=== PATIENT | female | born 1980 | race American Indian/Alaskan Native ===

== ENCOUNTER 2016-07-15 20:37 | Emergency (ER) | payer MEDICAID ==
[2016-07-15 21:52] VITALS: BP 104/65
[2016-07-15] MEDS ORDERED: Acetaminophen/HYDROcodone 325-10 MG Tab PO ONE (22:09)
[2016-07-15] MEDS ORDERED: Clindamycin HCl 150 MG Cap PO ONE (22:09)
--- NOTE | 2016-07-15 22:14 | EDM.PDOC ---
ED HPI ENT - General Chief Complaint: ENT Problem Stated Complaint: TOOTH ABCESS Time Seen by Provider: 07/15/16 22:10 Source of Information: Reports: Patient History Limitations: Reports: No limitations - History of Present Illness INITIAL COMMENTS - FREE TEXT/NARRATIVE: broken tooth be seeing DDS in AM. - Related Data Allergies/ADRs: Allergies Allergy/AdvReac Type Severity Reaction Status Date / Time amoxicillin [Amoxicillin] Allergy Difficulty Verified 07/15/16 21:49 Swallowing cephalexin [Cephalexin] Allergy Cannot Verified 07/15/16 21:49 Remember Cephalosporins Allergy Cannot Verified 07/15/16 21:49 Remember cyclobenzaprine Allergy Cannot Verified 07/15/16 21:49 [Cyclobenzaprine] Remember lactose Allergy Diarrhea Verified 07/15/16 21:49 latex Allergy Itching Verified 07/15/16 21:49 Penicillins Allergy Anaphylactic Verified 07/15/16 21:49 Shock fish Allergy Rash Uncoded 07/15/16 21:49 Home Meds: Home Meds Albuterol Sulfate [Albuterol Sulfate HFA] 8.5 gm IH ASDIRECTED PRN 04/11/13 [ History] Gabapentin [Neurontin] 900 mg PO TID 04/11/13 [History] Lisinopril 10 mg PO DAILY 04/11/13 [History] Montelukast [Singulair] 10 mg PO DAILY 04/11/13 [History] Pantoprazole [Protonix] 40 mg PO DAILY 04/11/13 [History] Dextroamphetamine/Amphetamine [Adderall] 30 mg PO DAILY 09/23/15 [History] Hydrochlorothiazide [Hydrochlorothiazide] 50 mg PO DAILY 09/23/15 [History] Lisdexamfetamine Dimesylate [Vyvanse] 60 mg PO DAILY 09/23/15 [History] SitaGLIPtin [Januvia] 100 mg PO DAILY 09/23/15 [History] metFORMIN HCl [Metformin HCl ER] 1,000 mg PO BID 09/23/15 [History] Baclofen 10 mg PO ASDIRECTED PRN 12/20/15 [History] Escitalopram [Lexapro] 10 mg PO DAILY 12/20/15 [History] Potassium 99 mg PO DAILY 12/20/15 [History] Albuterol [Proventil Neb Soln] 0.63 mg NEB TID PRN 03/05/16 [History] Insulin Glarg,Human.Rec.Analog [Lantus] 8 units SQ DAILY 04/19/16 [History] Past Medical History HEENT History: Reports: Other (see below) Other HEENT History: ears drain all the time Cardiovascular History: Reports: High cholesterol, Hypertension Respiratory History: Reports: Asthma, Bronchitis, recurrent Gastrointestinal History: Reports: GERD Genitourinary History: Reports: None, Renal calculus 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 CONSULTANT 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: Reports: None, Musculoskeletal History: Reports: Arthritis Neurological History: Reports: Concussion, Head trauma, Neuropathy, diabetic Other Neuro History: body shuts down from stress Psychiatric History: Reports: ADD, ADHD, Addiction, Aggressive/hostile behaviors , Anxiety, Depression, Emotional problems, Panic attack, Psych Hospitalization(s ), PTSD Endocrine/Metabolic History: Reports: Diabetes, type II Hematologic History: Reports: None Immunologic History: Reports: None Other Immunologic History: not sure if has been ecxposed to HIV Oncologic (Cancer) History: Reports: None Dermatologic History: Reports: Other (see below) Other Dermatologic History: has bumps in the groin area and a rash on body - Infectious Disease History Infectious Disease History: Reports: Chicken pox, Hepatitis C Other Infectious Disease History: has active Hep C - Past Surgical History Head Surgeries/Procedures: Reports: None GI Surgical History: Reports: Cholecystectomy, Other (see below) Other GI Surgeries/Procedures: liver surgery, bleeding ulcers Female Surgical History: Reports: Tubal ligation Social & Family History - Family History Family Medical History: Noncontributory Cardiac: Reports: High cholesterol, Hypertension, [place] Other Cardiac Family History: Grandmother on mom's side. Both sides have hypertension and high cholesterol Endocrine/Metabolic: Reports: Diabetes, type II Other Endocrine/Metabolic Family History: Both sides of family. - Tobacco Use Smoking Status *Q: Current Every Day Smoker Years of Tobacco use: 5 Packs/Tins Daily: 0.5 Used Tobacco, but Quit: No Month Tobacco Last Used: january 2014 Second Hand Smoke Exposure: No - Caffeine Use Caffeine Use: Reports: None - Alcohol Use Days Per Week of Alcohol Use: 0 Number of Drinks Per Day: 10 Total Drinks Per Week: 0 - Recreational Drug Use Recreational Drug Use: No Drug Use in Last 12 Months: No Recreational Drug Type: Reports: Barbituates, Marijuana/Hashish, Methamphetamine Recreational Drug Use Frequency: Daily Recreational Drug Last Use: Saturday - Living Situation & Occupation Living situation: Reports: other (in intermediate) ED ROS ENT - Review of Systems Review Of Systems: ROS reveals no pertinent complaints other than HPI. ED EXAM, ENT - Physical Exam Exam: See Below Exam Limited By: No limitations General Appearance: alert, WD/WN, mild distress, other (crying) Eye Exam: bilateral eye: PERRL (pupils ER @ 4mm) Ears: hearing grossly normal Mouth/Throat: Dental abcess, Dental pain, Dental tenderness Head: atraumatic Neck: non-tender, full range of motion Respiratory/Chest: no respiratory distress Cardiovascular: regular rate, rhythm GI/Abdominal: soft, non tender Neurological: alert, oriented, normal cognition, normal gait, no motor/sensory deficits Psychiatric: tearful Skin: Warm, Dry Lymphatic: no adenopathy Course - Vital Signs Last Recorded V/S: Last Vital Signs Temp 37.2 C 07/15/16 21:51 Pulse 75 07/15/16 21:51 Resp 20 07/15/16 21:51 BP 104/65 07/15/16 21:51 Pulse Ox 96 07/15/16 21:51 - Orders/Labs/Meds Orders: Active Orders 24 hr Category Date Time Status Acetaminophen/HYDROcodone [[place] 325-10 MG] Med 07/15/16 22:09 Once 1 tab PO ONETIME ONE Clindamycin HCl [Cleocin] Med 07/15/16 22:09 Once 150 mg PO ONETIME ONE Departure - Departure Time of Disposition: 22:12 Disposition: Home, Self-Care 01 Condition: good Clinical Impression: Dental abscess, Dental caries Instructions: Dental Abscess, [id number] Forms: ED Department Discharge Additional Instructions: 1) avoid sodas & candies 2) see dentist in morning rx given: clindamycin 150mg qid x 40 vicodin 5/325mg bid x 6 - My Orders Last 24 Hours: My Active Orders 07/15/16 22:09 Acetaminophen/HYDROcodone [[place] 325-10 MG] 1 tab PO ONETIME ONE Clindamycin HCl [Cleocin] 150 mg PO ONETIME ONE - Assessment/Plan Last 24 Hours: My Active Orders 07/15/16 22:09 Acetaminophen/HYDROcodone [[place] 325-10 MG] 1 tab PO ONETIME ONE Clindamycin HCl [Cleocin] 150 mg PO ONETIME ONE
== END 2016-07-15 22:28 | disposition home or self-care (01) ==
LOC: DL.ED 20:37
DX: K04.7 Periapical abscess without sinus (principal); K02.9 Dental caries, unspecified; E78.00 Pure hypercholesterolemia, unspecified; I10 Essential (primary) hypertension; J45.909 Unspecified asthma, uncomplicated; M19.90 Unspecified osteoarthritis, unspecified site; F41.9 Anxiety disorder, unspecified; E11.9 Type 2 diabetes mellitus without complications; F17.210 Nicotine dependence, cigarettes, uncomplicated; Z90.49 Acquired absence of other specified parts of digestive tract; Z98.51 Tubal ligation status; Z79.84 Long term (current) use of oral hypoglycemic drugs; Z79.4 Long term (current) use of insulin; Z79.899 Other long term (current) drug therapy; Z88.1 Allergy status to other antibiotic agents; Z88.0 Allergy status to penicillin; Z91.040 Latex allergy status; Z91.013 Allergy to seafood; Z91.018 Allergy to other foods
CPT/HCPCS: 99282; A9270

== ENCOUNTER 2016-07-20 23:07 | Emergency (ER) | payer MEDICAID ==
[2016-07-20 23:25] VITALS: BP 119/76
--- NOTE | 2016-07-21 00:12 | EDM.PDOC ---
ED HPI RENAL/ - General Chief Complaint: Flank Pain Stated Complaint: KIDNEYS HURT Time Seen by Provider: 07/21/16 00:07 Source of Information: Reports: Patient History Limitations: Reports: No limitations - History of Present Illness INITIAL COMMENTS - FREE TEXT/NARRATIVE: gives long h/o kidney problems since becoming DM. been f/u regularly @ clinic with blood tests last visit last week but no blood tests been done and kidney has been shaking and twitching on off. - Related Data Allergies/ADRs: Allergies Allergy/AdvReac Type Severity Reaction Status Date / Time amoxicillin [Amoxicillin] Allergy Difficulty Verified 07/20/16 23:25 Swallowing cephalexin [Cephalexin] Allergy Cannot Verified 07/20/16 23:25 Remember Cephalosporins Allergy Cannot Verified 07/20/16 23:25 Remember cyclobenzaprine Allergy Cannot Verified 07/20/16 23:25 [Cyclobenzaprine] Remember lactose Allergy Diarrhea Verified 07/20/16 23:25 latex Allergy Itching Verified 07/20/16 23:25 Penicillins Allergy Anaphylactic Verified 07/20/16 23:25 Shock fish Allergy Rash Uncoded 07/15/16 21:49 Home Meds: Home Meds Albuterol Sulfate [Albuterol Sulfate HFA] 8.5 gm IH ASDIRECTED PRN 04/11/13 [ History] Gabapentin [Neurontin] 900 mg PO TID 04/11/13 [History] Lisinopril 10 mg PO DAILY 04/11/13 [History] Montelukast [Singulair] 10 mg PO DAILY 04/11/13 [History] Pantoprazole [Protonix] 40 mg PO DAILY 04/11/13 [History] Dextroamphetamine/Amphetamine [Adderall] 30 mg PO DAILY 09/23/15 [History] Hydrochlorothiazide [Hydrochlorothiazide] 50 mg PO DAILY 09/23/15 [History] Lisdexamfetamine Dimesylate [Vyvanse] 60 mg PO DAILY 09/23/15 [History] SitaGLIPtin [Januvia] 100 mg PO DAILY 09/23/15 [History] metFORMIN HCl [Metformin HCl ER] 1,000 mg PO BID 09/23/15 [History] Baclofen 10 mg PO ASDIRECTED PRN 12/20/15 [History] Escitalopram [Lexapro] 10 mg PO DAILY 12/20/15 [History] Potassium 99 mg PO DAILY 12/20/15 [History] Albuterol [Proventil Neb Soln] 0.63 mg NEB TID PRN 03/05/16 [History] Insulin Glarg,Human.Rec.Analog [Lantus] 8 units SQ DAILY 04/19/16 [History] Clindamycin HCl [Clindamycin HCl] 150 mg PO DAILY 07/20/16 [History] Fluconazole [Diflucan] 150 mg PO DAILY 07/20/16 [History] atorvaSTATin [Lipitor] 20 mg PO BEDTIME 07/20/16 [History] Past Medical History HEENT History: Reports: Other (see below) Other HEENT History: ears drain all the time Cardiovascular History: Reports: High cholesterol, Hypertension Respiratory History: Reports: Asthma, Bronchitis, recurrent Gastrointestinal History: Reports: GERD Genitourinary History: Reports: Renal calculus 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: Musculoskeletal History: Reports: Arthritis Neurological History: Reports: Concussion, Head trauma, Neuropathy, diabetic Other Neuro History: body shuts down from stress Psychiatric History: Reports: ADD, ADHD, Addiction, Aggressive/hostile behaviors , Anxiety, Depression, Emotional problems, Panic attack, Psych Hospitalization(s ), PTSD Endocrine/Metabolic History: Reports: Diabetes, type II Hematologic History: Reports: None Immunologic History: Reports: None Other Immunologic History: not sure if has been ecxposed to HIV Oncologic (Cancer) History: Reports: None Dermatologic History: Reports: Other (see below) Other Dermatologic History: has bumps in the groin area and a rash on body - Infectious Disease History Infectious Disease History: Reports: Chicken pox, Hepatitis C Other Infectious Disease History: has active Hep C - Past Surgical History Head Surgeries/Procedures: Reports: None GI Surgical History: Reports: Cholecystectomy, Other (see below) Other GI Surgeries/Procedures: liver surgery, bleeding ulcers Female Surgical History: Reports: Tubal ligation Social & Family History - Family History Family Medical History: Noncontributory Cardiac: Reports: High cholesterol, Hypertension, [place] Other Cardiac Family History: Grandmother on mom's side. Both sides have hypertension and high cholesterol Endocrine/Metabolic: Reports: Diabetes, type II Other Endocrine/Metabolic Family History: Both sides of family. - Tobacco Use Smoking Status *Q: Current Every Day Smoker Years of Tobacco use: 25 Packs/Tins Daily: 0.1 Used Tobacco, but Quit: No Month Tobacco Last Used: january 2014 Second Hand Smoke Exposure: Yes - Caffeine Use Caffeine Use: Reports: None - Alcohol Use Days Per Week of Alcohol Use: 0 Number of Drinks Per Day: 10 Total Drinks Per Week: 0 - Recreational Drug Use Recreational Drug Use: Yes Drug Use in Last 12 Months: No Recreational Drug Type: Reports: Barbituates, Marijuana/Hashish, Methamphetamine Recreational Drug Use Frequency: Daily Recreational Drug Last Use: Saturday - Living Situation & Occupation Living situation: Reports: other (in residential) ED ROS GENERAL - Review of Systems Review Of Systems: ROS reveals no pertinent complaints other than HPI. ED EXAM, RENAL/ - Physical Exam Exam: See Below Exam Limited By: No limitations General Appearance: alert, WD/WN, no apparent distress Ears: hearing grossly normal Throat/Mouth: Normal voice, No airway compromise Head: atraumatic Neck: non-tender, full range of motion Respiratory/Chest: no respiratory distress Cardiovascular: regular rate, rhythm GI/Abdominal: soft, non tender Back Exam: CVA tenderness (L), paraspinal tenderness Neurological: alert, oriented, normal cognition, normal gait, no motor/sensory deficits Psychiatric: normal affect, normal mood Skin Exam: Warm, Dry Lymphatic: no adenopathy Course - Vital Signs Last Recorded V/S: Last Vital Signs Temp 36.6 C 07/20/16 23:21 Pulse 89 07/20/16 23:21 Resp 18 07/20/16 23:21 BP 119/76 07/20/16 23:21 Pulse Ox 100 07/20/16 23:21 - Orders/Labs/Meds Orders: Active Orders 24 hr Category Date Time Status CBC WITH AUTO DIFF [HEME] Stat Lab 07/21/16 00:15 Results MANUAL DIFFERENTIAL QA/NC [HEME] Stat Lab 07/21/16 00:15 Results Acetaminophen/HYDROcodone [[place] 325-10 MG] Med 07/21/16 00:50 Once 1 tab PO ONETIME ONE Labs: Laboratory Tests 07/20/16 07/21/16 07/21/16 Range/Units 23:37 00:00 00:15 WBC 15.1 H (5.0-10.0) 10^3/uL RBC 4.25 (4.2-5.4) 10^6/uL Hgb 11.5 L (12.0-16.0) g/dL Hct 35.0 L (37.0-47.0) % MCV 82.4 (80-100) fL MCH 27.1 (27.0-34.0) pg MCHC 32.9 L (33.0-35.0) g/dL Plt Count 351 (150-450) 10^3/uL Neut % (Auto) 71.7 (42.2-75.2) % Lymph % (Auto) 17.8 L (20.5-50.1) % [place] % (Auto) 9.0 H (2-8) % Eos % (Auto) 1.3 (1.0-3.0) % Baso % (Auto) 0.2 (0.0-1.0) % Add Manual Diff Yes Sodium (135-145) mmol/L Potassium (3.6-5.0) mmol/L Chloride (101-111) mmol/L Carbon Dioxide (21.0-31.0) mmol/L Anion Gap BUN (7-18) mg/dL Creatinine (0.6-1.3) mg/dL Est Cr Clr Drug Dosing mL/min Estimated GFR (MDRD) BUN/Creatinine Ratio Glucose (74-105) mg/dL Calcium (8.4-10.2) mg/dl Total Bilirubin (0.2-1.0) mg/dL AST (10-42) IU/L ALT (10-60) IU/L Alkaline Phosphatase (42-121) IU/L Total Protein (6.7-8.2) g/dl Albumin (3.2-5.5) g/dl Globulin Albumin/Globulin Ratio Urine Color Yellow (YELLOW) Urine Appearance Clear (CLEAR) Urine pH 7.0 (5.0-9.0) Ur Specific [place] 1.025 (1.005-1.030) Urine Protein Negative (NEGATIVE) Urine Glucose (UA) Negative (NEGATIVE) Urine Ketones Negative (NEGATIVE) Urine Occult Blood Negative (NEGATIVE) Urine Nitrite Negative (NEGATIVE) Urine Bilirubin Negative (NEGATIVE) Urine Urobilinogen 1.0 (0.2-1.0) mg/dL Ur Leukocyte Esterase Negative (NEGATIVE) Urine RBC Not seen /HPF Urine WBC 0-5 (0-5/HPF) /HPF Ur Epithelial Cells Moderate H /HPF Urine Bacteria Moderate H (0-FEW/HPF) /HPF Urine HCG, Qual Negative 07/21/16 Range/Units 00:15 WBC (5.0-10.0) 10^3/uL RBC (4.2-5.4) 10^6/uL Hgb (12.0-16.0) g/dL Hct (37.0-47.0) % MCV (80-100) fL MCH (27.0-34.0) pg MCHC (33.0-35.0) g/dL Plt Count (150-450) 10^3/uL Neut % (Auto) (42.2-75.2) % Lymph % (Auto) (20.5-50.1) % [place] % (Auto) (2-8) % Eos % (Auto) (1.0-3.0) % Baso % (Auto) (0.0-1.0) % Add Manual Diff Sodium 135 (135-145) mmol/L Potassium 4.0 (3.6-5.0) mmol/L Chloride 97 L (101-111) mmol/L Carbon Dioxide 30.0 (21.0-31.0) mmol/L Anion Gap 12.0 BUN 12 (7-18) mg/dL Creatinine 0.6 (0.6-1.3) mg/dL Est Cr Clr Drug Dosing 120.18 mL/min Estimated GFR (MDRD) > 60 BUN/Creatinine Ratio 20.00 Glucose 86 (74-105) mg/dL Calcium 8.6 (8.4-10.2) mg/dl Total Bilirubin 0.5 (0.2-1.0) mg/dL AST 24 (10-42) IU/L ALT 29 (10-60) IU/L Alkaline Phosphatase 91 (42-121) IU/L Total Protein 6.5 L (6.7-8.2) g/dl Albumin 3.5 (3.2-5.5) g/dl Globulin 3.0 Albumin/Globulin Ratio 1.17 Urine Color (YELLOW) Urine Appearance (CLEAR) Urine pH (5.0-9.0) Ur Specific [place] (1.005-1.030) Urine Protein (NEGATIVE) Urine Glucose (UA) (NEGATIVE) Urine Ketones (NEGATIVE) Urine Occult Blood (NEGATIVE) Urine Nitrite (NEGATIVE) Urine Bilirubin (NEGATIVE) Urine Urobilinogen (0.2-1.0) mg/dL Ur Leukocyte Esterase (NEGATIVE) Urine RBC /HPF Urine WBC (0-5/HPF) /HPF Ur Epithelial Cells /HPF Urine Bacteria (0-FEW/HPF) /HPF Urine HCG, Qual - Re-Assessments/Exams Free Text/Narrative Re-Assessment/Exam: 07/21/16 00:50 results discussed with pt. Departure - Departure Time of Disposition: 00:51 Disposition: Home, Self-Care 01 Condition: good Clinical Impression: Lumbar pain determined by palpation Instructions: Back Pain, Adult, [id number] Forms: ED Department Discharge Additional Instructions: 1) rest and avoid lifting, bending, straining next 48 hours 2) try heat to sore areas 3) try tylenol or motrin for relief 4) drink lots of liquids 5) follow up at clinic or recheck if there is any change or concerns - My Orders Last 24 Hours: My Active Orders 07/21/16 00:15 CBC WITH AUTO DIFF [HEME] Stat MANUAL DIFFERENTIAL QA/NC [HEME] Stat 07/21/16 00:50 Acetaminophen/HYDROcodone [[place] 325-10 MG] 1 tab PO ONETIME ONE - Assessment/Plan Last 24 Hours: My Active Orders 07/21/16 00:15 CBC WITH AUTO DIFF [HEME] Stat MANUAL DIFFERENTIAL QA/NC [HEME] Stat 07/21/16 00:50 Acetaminophen/HYDROcodone [[place] 325-10 MG] 1 tab PO ONETIME ONE
[2016-07-21 00:42] LABS: CHLORIDE,CL 97 mmol/L (101-111); SODIUM,NA 135 mmol/L (135-145)
[2016-07-21] MEDS ORDERED: Acetaminophen/HYDROcodone 325-10 MG Tab PO ONE (00:50)
== END 2016-07-21 00:56 | disposition home or self-care (01) ==
LOC: DL.ED 23:07
DX: M54.5 Low back pain (principal); E78.00 Pure hypercholesterolemia, unspecified; I10 Essential (primary) hypertension; J45.909 Unspecified asthma, uncomplicated; K21.9 Gastro-esophageal reflux disease without esophagitis; M19.90 Unspecified osteoarthritis, unspecified site; E11.40 Type 2 diabetes mellitus with diabetic neuropathy, unspecified; F41.9 Anxiety disorder, unspecified; F32.9 Major depressive disorder, single episode, unspecified; F17.210 Nicotine dependence, cigarettes, uncomplicated; Z88.1 Allergy status to other antibiotic agents; Z88.0 Allergy status to penicillin; Z91.013 Allergy to seafood; Z91.040 Latex allergy status; Z88.8 Allergy status to other drugs, medicaments and biological substances; Z79.4 Long term (current) use of insulin; Z79.84 Long term (current) use of oral hypoglycemic drugs; Z79.899 Other long term (current) drug therapy; Z90.49 Acquired absence of other specified parts of digestive tract; Z98.51 Tubal ligation status
CPT/HCPCS: 36415; 80053; 81001; 81025; 85025; 99284; A9270

== ENCOUNTER 2016-08-11 22:39 | Emergency (ER) | payer MEDICAID ==
[2016-08-11 23:08] VITALS: BP 126/86
[2016-08-11] MEDS ORDERED: Clindamycin HCl 150 MG Cap PO ONE (23:42)
[2016-08-11] MEDS ORDERED: Acetaminophen/HYDROcodone 325-10 MG Tab PO ONE ×2 (23:42→23:51)
--- NOTE | 2016-08-11 23:46 | EDM.PDOC ---
ED HPI ENT - General Chief Complaint: ENT Problem Stated Complaint: ABCESS TOOTH, PAIN Time Seen by Provider: 08/11/16 23:42 Source of Information: Reports: Patient History Limitations: Reports: No limitations - History of Present Illness INITIAL COMMENTS - FREE TEXT/NARRATIVE: persistent tooth abscess, has appt' next week - Related Data Allergies/ADRs: Allergies Allergy/AdvReac Type Severity Reaction Status Date / Time amoxicillin [Amoxicillin] Allergy Difficulty Verified 08/11/16 22:54 Swallowing cephalexin [Cephalexin] Allergy Cannot Verified 08/11/16 22:54 Remember Cephalosporins Allergy Difficulty Verified 08/11/16 22:54 Swallowing cyclobenzaprine Allergy Other Verified 08/11/16 22:54 [Cyclobenzaprine] lactose Allergy Diarrhea Verified 08/11/16 22:54 latex Allergy Itching Verified 08/11/16 22:54 Penicillins Allergy Anaphylactic Verified 08/11/16 22:54 Shock fish Allergy Rash Uncoded 07/15/16 21:49 Home Meds: Home Meds Albuterol Sulfate [Albuterol Sulfate HFA] 8.5 gm IH ASDIRECTED PRN 04/11/13 [ History] Gabapentin [Neurontin] 900 mg PO TID 04/11/13 [History] Lisinopril 10 mg PO DAILY 04/11/13 [History] Pantoprazole [ProTONIX] 40 mg PO DAILY 04/11/13 [History] Hydrochlorothiazide [Hydrochlorothiazide] 50 mg PO DAILY 09/23/15 [History] Lisdexamfetamine Dimesylate [Vyvanse] 60 mg PO DAILY 09/23/15 [History] SitaGLIPtin [Januvia] 100 mg PO DAILY 09/23/15 [History] metFORMIN HCl [Metformin HCl ER] 1,000 mg PO BID 09/23/15 [History] Potassium 99 mg PO DAILY 12/20/15 [History] Albuterol [Proventil Neb Soln] 0.63 mg NEB TID PRN 03/05/16 [History] Insulin Glarg,Human.Rec.Analog [Lantus] 8 units SQ DAILY 04/19/16 [History] Clindamycin HCl [Clindamycin HCl] 150 mg PO BID 07/20/16 [History] atorvaSTATin [Lipitor] 20 mg PO BEDTIME 07/20/16 [History] Clindamycin HCl 1 cap PO BID 08/11/16 [History] Ibuprofen 1 tab PO TID PRN 08/11/16 [History] busPIRone [Buspar] 1 tab PO BID 08/11/16 [History] Past Medical History HEENT History: Reports: Impaired vision, Other (see below) Other HEENT History: ears drain all the time, wears glasses Cardiovascular History: Reports: Heart murmur, High cholesterol, Hypertension Respiratory History: Reports: Asthma, Bronchitis, recurrent Gastrointestinal History: Reports: GERD Genitourinary History: Reports: Renal calculus 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: Musculoskeletal History: Reports: Arthritis, Back pain, chronic, Other (see below) Other Musculoskeletal History: bulging disx on L5 Neurological History: Reports: Concussion, Head trauma, Neuropathy, diabetic Other Neuro History: body shuts down from stress Psychiatric History: Reports: ADD, ADHD, Addiction, Aggressive/hostile behaviors , Anxiety, Depression, Emotional problems, Panic attack, Psych Hospitalization(s ), PTSD, Suicide attempt Endocrine/Metabolic History: Reports: Diabetes, type II, Obesity/BMI 30+ Hematologic History: Reports: None Immunologic History: Reports: None Other Immunologic History: not sure if has been exposed to HIV Oncologic (Cancer) History: Reports: None Dermatologic History: Reports: Other (see below) Other Dermatologic History: has bumps in the groin area and a rash on body - Infectious Disease History Infectious Disease History: Reports: Chicken pox, Hepatitis C Other Infectious Disease History: has active Hep C - Past Surgical History Head Surgeries/Procedures: Reports: None HEENT Surgical History: Reports: Oral surgery, Other (see below) Other HEENT Surgeries/Procedures: maxifacial surgery from broken jaw GI Surgical History: Reports: Cholecystectomy, Other (see below) Other GI Surgeries/Procedures: liver surgery, bleeding ulcers Female Surgical History: Reports: D&C, Tubal ligation Social & Family History - Family History Family Medical History: Noncontributory Cardiac: Reports: High cholesterol, Hypertension, [place] Other Cardiac Family History: Grandmother on mom's side. Both sides have hypertension and high cholesterol Endocrine/Metabolic: Reports: Diabetes, type II Other Endocrine/Metabolic Family History: Both sides of family. - Tobacco Use Smoking Status *Q: Current Every Day Smoker Years of Tobacco use: 25 Packs/Tins Daily: 1 Used Tobacco, but Quit: No Month Tobacco Last Used: january 2014 Second Hand Smoke Exposure: Yes - Caffeine Use Caffeine Use: Reports: Coffee, Soda - Alcohol Use Days Per Week of Alcohol Use: 0 Number of Drinks Per Day: 10 Total Drinks Per Week: 0 - Recreational Drug Use Recreational Drug Use: Yes Drug Use in Last 12 Months: No Recreational Drug Type: Reports: Barbituates, Marijuana/Hashish, Methamphetamine Other Recreational Drug Type: hx of IV drug use, sober since 2013 Recreational Drug Use Frequency: Daily Recreational Drug Last Use: Saturday - Living Situation & Occupation Living situation: Reports: other (in prison) ED ROS ENT - Review of Systems Review Of Systems: ROS reveals no pertinent complaints other than HPI. ED EXAM, ENT - Physical Exam Exam: See Below Exam Limited By: No limitations General Appearance: alert, WD/WN, mild distress, other (crying) Eye Exam: bilateral eye: PERRL (pupils ER @ 4mm) Ears: hearing grossly normal Mouth/Throat: Dental abcess, Dental pain, Dental tenderness Head: atraumatic Neck: non-tender, full range of motion Respiratory/Chest: no respiratory distress Cardiovascular: regular rate, rhythm GI/Abdominal: soft, non tender Neurological: alert, oriented, normal cognition, normal gait, no motor/sensory deficits Psychiatric: tearful Skin: Warm, Dry Lymphatic: no adenopathy Course - Vital Signs Last Recorded V/S: Last Vital Signs Temp 36.4 C 08/11/16 23:04 Pulse 101 H 08/11/16 23:04 Resp 18 08/11/16 23:04 BP 126/86 08/11/16 23:04 Pulse Ox 99 08/11/16 23:04 - Orders/Labs/Meds Orders: Active Orders 24 hr Category Date Time Status Acetaminophen/HYDROcodone [[place] 325-10 MG] Med 08/11/16 23:42 Once 1 tab PO ONETIME ONE Clindamycin HCl [Cleocin] Med 08/11/16 23:42 Once 150 mg PO ONETIME ONE Departure - Departure Time of Disposition: 23:44 Disposition: Home, Self-Care 01 Condition: good Clinical Impression: Dental caries, Dental abscess Instructions: Dental Abscess, [id number] Forms: ED Department Discharge Additional Instructions: 1) avoid sodas, candies, junk foods 2) follow up with dentist next week rx given: vicodin 5/325mg bid prn x 12 - My Orders Last 24 Hours: My Active Orders 08/11/16 23:42 Acetaminophen/HYDROcodone [[place] 325-10 MG] 1 tab PO ONETIME ONE Clindamycin HCl [Cleocin] 150 mg PO ONETIME ONE - Assessment/Plan Last 24 Hours: My Active Orders 08/11/16 23:42 Acetaminophen/HYDROcodone [[place] 325-10 MG] 1 tab PO ONETIME ONE Clindamycin HCl [Cleocin] 150 mg PO ONETIME ONE
[2016-08-11] MEDS ORDERED: Acetaminophen/HYDROcodone 325-10 MG Tab ONE (23:51)
== END 2016-08-11 23:55 | disposition home or self-care (01) ==
LOC: DL.ED 22:39
DX: K04.7 Periapical abscess without sinus (principal); K02.9 Dental caries, unspecified; R01.1 Cardiac murmur, unspecified; E78.00 Pure hypercholesterolemia, unspecified; I10 Essential (primary) hypertension; J45.909 Unspecified asthma, uncomplicated; K21.9 Gastro-esophageal reflux disease without esophagitis; M19.90 Unspecified osteoarthritis, unspecified site; E11.9 Type 2 diabetes mellitus without complications; E66.9 Obesity, unspecified; F17.210 Nicotine dependence, cigarettes, uncomplicated; Z98.890 Other specified postprocedural states; Z90.49 Acquired absence of other specified parts of digestive tract; Z98.51 Tubal ligation status; Z79.899 Other long term (current) drug therapy; Z79.84 Long term (current) use of oral hypoglycemic drugs; Z79.4 Long term (current) use of insulin; Z88.1 Allergy status to other antibiotic agents; Z91.040 Latex allergy status; Z91.013 Allergy to seafood; Z88.0 Allergy status to penicillin; Z88.8 Allergy status to other drugs, medicaments and biological substances
CPT/HCPCS: 99282; A9270

== ENCOUNTER 2016-09-01 19:45 | Inpatient (IN) | payer MEDICAID ==
--- NOTE | 2016-09-01 20:28 | EDM.PDOC ---
ED HPI ENT - General Chief Complaint: ENT Problem Stated Complaint: SOMTHING WITH THE MOUTH [id number] Time Seen by Provider: 09/01/16 20:15 Source of Information: Reports: Patient History Limitations: Reports: No limitations - History of Present Illness INITIAL COMMENTS - FREE TEXT/NARRATIVE: This 35 yo female patient reports to the ED with upper dental pain. The patient reports [facility] and advised that she has multiple abscesses in her mouth. The patient is scheduled for a [facility] on [facility] 10. The patient reports she was not started on any antibiotics and has been taking ibuprofen (800 mg) with no symptom relief. Timing/Duration: Reports: Week(s):, Constant Severity: severe Location: Reports: mouth Quality: Reports: Ache, Sharp Improves with: Reports: None Worsens with: Reports: None Associated Symptoms: Reports: no other symptoms Treatments IT SERVICE MANAGER: Reports: NSAIDS - Related Data Allergies/ADRs: Allergies Allergy/AdvReac Type Severity Reaction Status Date / Time amoxicillin [Amoxicillin] Allergy Difficulty Verified 09/01/16 19:52 Swallowing cephalexin [Cephalexin] Allergy Cannot Verified 09/01/16 19:52 Remember Cephalosporins Allergy Difficulty Verified 09/01/16 19:52 Swallowing cyclobenzaprine Allergy Other Verified 09/01/16 19:52 [Cyclobenzaprine] lactose Allergy Diarrhea Verified 09/01/16 19:52 latex Allergy Itching Verified 09/01/16 19:52 Penicillins Allergy Anaphylactic Verified 09/01/16 19:52 Shock fish Allergy Rash Uncoded 07/15/16 21:49 Home Meds: Home Meds Albuterol Sulfate [Albuterol Sulfate HFA] 8.5 gm IH ASDIRECTED PRN 04/11/13 [ History] Gabapentin [Neurontin] 900 mg PO TID 04/11/13 [History] Lisinopril 10 mg PO DAILY 04/11/13 [History] Pantoprazole [ProTONIX] 40 mg PO DAILY 04/11/13 [History] Hydrochlorothiazide [Hydrochlorothiazide] 50 mg PO DAILY 09/23/15 [History] Lisdexamfetamine Dimesylate [Vyvanse] 60 mg PO DAILY 09/23/15 [History] SitaGLIPtin [Januvia] 100 mg PO DAILY 09/23/15 [History] metFORMIN HCl [Metformin HCl ER] 1,000 mg PO BID 09/23/15 [History] Potassium 99 mg PO DAILY 12/20/15 [History] Albuterol [Proventil Neb Soln] 0.63 mg NEB TID PRN 03/05/16 [History] Insulin Glarg,Human.Rec.Analog [Lantus] 8 units SQ DAILY 04/19/16 [History] atorvaSTATin [Lipitor] 20 mg PO BEDTIME 07/20/16 [History] Ibuprofen 1 tab PO TID PRN 08/11/16 [History] busPIRone [Buspar] 1 tab PO BID 08/11/16 [History] Past Medical History HEENT History: Reports: Impaired vision, Other (see below) Other HEENT History: ears drain all the time, wears glasses Cardiovascular History: Reports: Heart murmur, High cholesterol, Hypertension Respiratory History: Reports: Asthma, Bronchitis, recurrent Gastrointestinal History: Reports: GERD Genitourinary History: Reports: Renal calculus DIRECTOR OF 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 AND SECURITY History: Reports: Musculoskeletal History: Reports: Arthritis, Back pain, chronic, Other (see below) Other Musculoskeletal History: bulging disx on L5 Neurological History: Reports: Concussion, Head trauma, Neuropathy, diabetic Other Neuro History: body shuts down from stress Psychiatric History: Reports: ADD, ADHD, Addiction, Aggressive/hostile behaviors , Anxiety, Depression, Emotional problems, Panic attack, Psych Hospitalization(s ), PTSD Endocrine/Metabolic History: Reports: Diabetes, type II, Obesity/BMI 30+ Hematologic History: Reports: None Immunologic History: Reports: None Other Immunologic History: not sure if has been exposed to HIV Oncologic (Cancer) History: Reports: None Dermatologic History: Reports: Other (see below) Other Dermatologic History: has bumps in the groin area and a rash on body - Infectious Disease History Infectious Disease History: Reports: Chicken pox, Hepatitis C Other Infectious Disease History: has active Hep C - Past Surgical History Head Surgeries/Procedures: Reports: None HEENT Surgical History: Reports: Oral surgery, Other (see below) Other HEENT Surgeries/Procedures: maxifacial surgery from broken jaw GI Surgical History: Reports: Cholecystectomy, Other (see below) Other GI Surgeries/Procedures: liver surgery, bleeding ulcers Female Surgical History: Reports: D&C, Tubal ligation Social & Family History - Family History Family Medical History: Noncontributory Cardiac: Reports: High cholesterol, Hypertension, [place] Other Cardiac Family History: Grandmother on mom's side. Both sides have hypertension and high cholesterol Endocrine/Metabolic: Reports: Diabetes, type II Other Endocrine/Metabolic Family History: Both sides of family. - Tobacco Use Smoking Status *Q: Current Every Day Smoker Years of Tobacco use: 25 Packs/Tins Daily: 0.2 Used Tobacco, but Quit: No Month Tobacco Last Used: january 2014 Second Hand Smoke Exposure: Yes - Caffeine Use Caffeine Use: Reports: Coffee, Soda - Alcohol Use Days Per Week of Alcohol Use: 0 Number of Drinks Per Day: 10 Total Drinks Per Week: 0 - Recreational Drug Use Recreational Drug Use: No Drug Use in Last 12 Months: No Recreational Drug Type: Reports: Barbituates, Marijuana/Hashish, Methamphetamine Other Recreational Drug Type: hx of IV drug use, sober since 2013 Recreational Drug Use Frequency: Daily Recreational Drug Last Use: Saturday - Living Situation & Occupation Living situation: Reports: other (in care home) ED ROS ENT - Review of Systems Review Of Systems: ROS reveals no pertinent complaints other than HPI. ED EXAM, ENT - Physical Exam Exam: See Below Exam Limited By: No limitations General Appearance: alert, WD/WN, moderate distress, obese Eye Exam: bilateral eye: EOMI, normal inspection, PERRL Ears: normal external exam, normal canal, hearing grossly normal, normal TMs Nose: normal inspection, normal mucousa, no blood Mouth/Throat: Dental pain (left upper), Dental tenderness Head: atraumatic, normocephalic Neck: normal inspection, supple, non-tender, full range of motion Respiratory/Chest: no respiratory distress, lungs clear, normal breath sounds, no accessory muscle use, chest non-tender Cardiovascular: normal peripheral pulses, regular rate, rhythm, no edema, no gallop, no JVD, no murmur, no rub GI/Abdominal: normal bowel sounds, soft, non tender, no organomegaly, no distention, no abnormal bruit, no mass (Female) Exam: Deferred Rectal (Female) Exam: Deferred Back: normal inspection, full range of motion Extremities: normal inspection, normal range of motion, non-tender, no pedal edema, normal capillary refill Neurological: alert, oriented, CN II-XII intact, normal cognition, normal gait, normal reflexes, no motor/sensory deficits Psychiatric: depressed mood, flat affect, tearful Skin: Warm, Dry, Intact, Normal color, No rash Lymphatic: no adenopathy Course - Vital Signs Last Recorded V/S: Last Vital Signs Temp 35.4 C 09/01/16 19:48 Pulse 89 09/01/16 19:48 Resp 18 09/01/16 19:48 BP 116/73 09/01/16 19:48 Pulse Ox 97 09/01/16 19:48 - Orders/Labs/Meds Orders: Active Orders 24 hr Category Date Time Status CULTURE BLOOD [BC] Stat Lab 09/01/16 21:01 Ordered CULTURE BLOOD [BC] Stat Lab 09/01/16 21:01 Ordered Clindamycin Phosphate [Cleocin] 300 mg Med 09/01/16 21:18 Ordered Sodium Chloride 0.9% [Normal Saline] 50 ml IV ONETIME Blood Culture x2 Reflex Set [OM.PC] Stat Oth 09/01/16 21:01 Ordered Medication Orders Clindamycin Phosphate 300 mg/ (Sodium Chloride) 52 mls @ 50 mls/hr IV ONETIME ONE Stop: 09/01/16 22:20 Labs: Laboratory Tests 09/01/16 09/01/16 09/01/16 Range/Units 20:45 20:45 20:45 WBC 14.8 H (5.0-10.0) 10^3/uL RBC 4.47 (4.2-5.4) 10^6/uL Hgb 11.9 L (12.0-16.0) g/dL Hct 36.5 L (37.0-47.0) % MCV 81.7 (80-100) fL MCH 26.6 L (27.0-34.0) pg MCHC 32.6 L (33.0-35.0) g/dL Plt Count 363 (150-450) 10^3/uL Neut % (Auto) 79.3 H (42.2-75.2) % Lymph % (Auto) 13.5 L (20.5-50.1) % [place] % (Auto) 5.4 (2-8) % Eos % (Auto) 1.6 (1.0-3.0) % Baso % (Auto) 0.2 (0.0-1.0) % Sodium 135 (135-145) mmol/L Potassium 3.1 L (3.6-5.0) mmol/L Chloride 99 L (101-111) mmol/L Carbon Dioxide 26.0 (21.0-31.0) mmol/L Anion Gap 13.1 BUN 16 (7-18) mg/dL Creatinine 0.8 (0.6-1.3) mg/dL Est Cr Clr Drug Dosing 90.13 mL/min Estimated GFR (MDRD) > 60 BUN/Creatinine Ratio 20.00 Glucose 128 H (74-105) mg/dL Lactic Acid 2.6 H (0.5-2.2) mmol/L Calcium 9.2 (8.4-10.2) mg/dl Total Bilirubin 0.5 (0.2-1.0) mg/dL AST 37 (10-42) IU/L ALT 40 (10-60) IU/L Alkaline Phosphatase 79 (42-121) IU/L Total Protein 7.0 (6.7-8.2) g/dl Albumin 4.0 (3.2-5.5) g/dl Globulin 3.0 Albumin/Globulin Ratio 1.33 Meds: Medications Generic Name Dose Route Start Last Admin Trade Name Freq PRN Reason Stop Dose Admin Clindamycin Phosphate 300 mg/ 52 mls @ 50 mls/hr 09/01/16 21:18 Sodium Chloride IV 09/01/16 22:20 ONETIME ONE Discontinued Medications Generic Name Dose Route Start Last Admin Trade Name Freq PRN Reason Stop Dose Admin Hydrocodone Bitart/Acetaminophen 1 tab 09/01/16 21:03 09/01/16 21:09 [place] 325-10 Mg PO 09/01/16 21:04 1 tab ONETIME ONE Administration - Re-Assessments/Exams Free Text/Narrative Re-Assessment/Exam: 09/01/16 21:19 Discussed the patient's symptoms with Dr. Whitley. Dr. Whitley came to the ED to evaluate the patient. Departure - Departure Time of Disposition: 21:30 Disposition: Admitted As Inpatient 64 Condition: fair Clinical Impression: Abscess, dental Care Plan Goals: Discussed the examination, lab and history with Dr. Whitley. Dr. Whitley accepted the patient for continued evaluation and further management as an inpatient at [facility] in [place]. - My Orders Last 24 Hours: My Active Orders 09/01/16 21:01 CULTURE BLOOD [BC] Stat CULTURE BLOOD [BC] Stat Blood Culture x2 Reflex Set [OM.PC] Stat 09/01/16 21:18 Clindamycin Phosphate [Cleocin] 300 mg Sodium Chloride 0.9% [Normal Saline] 50 ml IV ONETIME - Assessment/Plan Last 24 Hours: My Active Orders 09/01/16 21:01 CULTURE BLOOD [BC] Stat CULTURE BLOOD [BC] Stat Blood Culture x2 Reflex Set [OM.PC] Stat 09/01/16 21:18 Clindamycin Phosphate [Cleocin] 300 mg Sodium Chloride 0.9% [Normal Saline] 50 ml IV ONETIME
[2016-09-01] MEDS ORDERED: Acetaminophen/HYDROcodone 325-10 MG Tab PO ONE (21:03)
[2016-09-01 21:09] LABS: CHLORIDE,CL 99 mmol/L (101-111); SODIUM,NA 135 mmol/L (135-145)
[2016-09-01] MEDS ORDERED: Albuterol 0.021% 0.63 MG/3 ML Neb Soln NEB PRN (21:32)
[2016-09-01] MEDS ORDERED: Potassium Chloride 10 MEQ Tab.ER PO ONE (21:38)
[2016-09-01] MEDS ORDERED: Sodium Chloride 0.9% with KCl 1,000 ML IV SCH (21:45)
--- NOTE | 2016-09-01 21:45 | PCM.HP ---
H&P History of Present Illness - General Date of Service: 09/01/16 Admit Problem/Dx: 35-year-old lady with a history of diabetes hypertension dyslipidemia presented with complaints of a few days of fever, chills, poor appetite Complaining of severe pain in the left lower jaw upper frontal jaw She was evaluated by facial surgery in my note on Saturday, she was told that she has areas of abscess and she will require surgical intervention with drainage of the abscesses and removal of a tooth. this was scheduled for September. She was not started on antibiotic. She is complaining of severe pain. Left Upper Gums Pain Score (Numeric/FACES): 9 - Related Data Allergies/Adverse Reactions: Allergies Allergy/AdvReac Type Severity Reaction Status Date / Time amoxicillin [Amoxicillin] Allergy Difficulty Verified 09/01/16 19:52 Swallowing cephalexin [Cephalexin] Allergy Cannot Verified 09/01/16 19:52 Remember Cephalosporins Allergy Difficulty Verified 09/01/16 19:52 Swallowing cyclobenzaprine Allergy Other Verified 09/01/16 19:52 [Cyclobenzaprine] lactose Allergy Diarrhea Verified 09/01/16 19:52 latex Allergy Itching Verified 09/01/16 19:52 Penicillins Allergy Anaphylactic Verified 09/01/16 19:52 Shock fish Allergy Rash Uncoded 07/15/16 21:49 Home Medications: Home Meds Albuterol Sulfate [Albuterol Sulfate HFA] 8.5 gm IH ASDIRECTED PRN 04/11/13 [ History] Gabapentin [Neurontin] 900 mg PO TID 04/11/13 [History] Lisinopril 10 mg PO DAILY 04/11/13 [History] Pantoprazole [ProTONIX] 40 mg PO DAILY 04/11/13 [History] Hydrochlorothiazide [Hydrochlorothiazide] 50 mg PO DAILY 09/23/15 [History] Lisdexamfetamine Dimesylate [Vyvanse] 60 mg PO DAILY 09/23/15 [History] SitaGLIPtin [Januvia] 100 mg PO DAILY 09/23/15 [History] metFORMIN HCl [Metformin HCl ER] 1,000 mg PO BID 09/23/15 [History] Potassium 99 mg PO DAILY 12/20/15 [History] Albuterol [Proventil Neb Soln] 0.63 mg NEB TID PRN 03/05/16 [History] Insulin Glarg,Human.Rec.Analog [Lantus] 8 units SQ DAILY 04/19/16 [History] atorvaSTATin [Lipitor] 20 mg PO BEDTIME 07/20/16 [History] Ibuprofen 1 tab PO TID PRN 08/11/16 [History] busPIRone [Buspar] 1 tab PO BID 08/11/16 [History] Past Medical History HEENT History: Reports: Impaired vision, Other (see below) Other HEENT History: ears drain all the time, wears glasses Cardiovascular History: Reports: Heart murmur, High cholesterol, Hypertension Respiratory History: Reports: Asthma, Bronchitis, recurrent Gastrointestinal History: Reports: GERD Genitourinary History: Reports: Renal calculus 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: Musculoskeletal History: Reports: Arthritis, Back pain, chronic, Other (see below) Other Musculoskeletal History: bulging disx on L5 Neurological History: Reports: Concussion, Head trauma, Neuropathy, diabetic Other Neuro History: body shuts down from stress Psychiatric History: Reports: ADD, ADHD, Addiction, Aggressive/hostile behaviors , Anxiety, Depression, Emotional problems, Panic attack, Psych Hospitalization(s ), PTSD Endocrine/Metabolic History: Reports: Diabetes, type II, Obesity/BMI 30+ Hematologic History: Reports: None Immunologic History: Reports: None Other Immunologic History: not sure if has been exposed to HIV Oncologic (Cancer) History: Reports: None Dermatologic History: Reports: Other (see below) Other Dermatologic History: has bumps in the groin area and a rash on body - Infectious Disease History Infectious Disease History: Reports: Chicken pox, Hepatitis C Other Infectious Disease History: has active Hep C - Past Surgical History Head Surgeries/Procedures: Reports: None HEENT Surgical History: Reports: Oral surgery, Other (see below) Other HEENT Surgeries/Procedures: maxifacial surgery from broken jaw GI Surgical History: Reports: Cholecystectomy, Other (see below) Other GI Surgeries/Procedures: liver surgery, bleeding ulcers Female Surgical History: Reports: D&C, Tubal ligation Social & Family History - Family History Family Medical History: Noncontributory Cardiac: Reports: High cholesterol, Hypertension, [place] Other Cardiac Family History: Grandmother on mom's side. Both sides have hypertension and high cholesterol Endocrine/Metabolic: Reports: Diabetes, type II Other Endocrine/Metabolic Family History: Both sides of family. - Tobacco Use Smoking Status *Q: Current Every Day Smoker Years of Tobacco use: 25 Packs/Tins Daily: 0.2 Used Tobacco, but Quit: No Month Tobacco Last Used: january 2014 Second Hand Smoke Exposure: Yes - Caffeine Use Caffeine Use: Reports: Coffee, Soda - Alcohol Use Days Per Week of Alcohol Use: 0 Number of Drinks Per Day: 10 Total Drinks Per Week: 0 - Recreational Drug Use Recreational Drug Use: No Drug Use in Last 12 Months: No Recreational Drug Type: Reports: Barbituates, Marijuana/Hashish, Methamphetamine Other Recreational Drug Type: hx of IV drug use, sober since 2013 Recreational Drug Use Frequency: Daily Recreational Drug Last Use: Saturday - Living Situation & Occupation Living situation: Reports: other (in long-term) H&P Review of Systems - Review of Systems: Review Of Systems: See Below General: Reports: fever, chills, malaise Pulmonary: Denies: Shortness of Breath Cardiovascular: Denies: chest pain Gastrointestinal: Denies: Abdominal pain Genitourinary: Denies: dysuria Psychiatric: Denies: confusion Exam - Exam Exam: See Below - Vital Signs Vital Signs: Last Vital Signs Temp 35.4 C 09/01/16 19:48 Pulse 89 09/01/16 19:48 Resp 18 09/01/16 19:48 BP 116/73 09/01/16 19:48 Pulse Ox 97 09/01/16 19:48 Weight: 83.461 kg - Exam Quality Assessment: No: supplemental oxygen General: alert, oriented HEENT: Other (tenderness to punch of the jaw, no significant facial redness or swelling) Lungs: Clear to auscultation, Normal respiratory effort Cardiovascular: regular rate, regular rhythm Abdomen: normal bowel sounds, soft, other (with these) Back Exam: normal inspection Extremities: normal inspection. No: edema Neuro Extensive - Mental Status: alert, oriented x3, normal mood/affect, normal cognition Psychiatric: alert, normal affect, normal mood - Patient Data Result Diagrams: 09/01/16 20:45 09/01/16 20:45 *Q Meaningful Use (ADM) - VTE *Q VTE Criteria *Q: - Stroke *Q Stroke Criteria *Q: - AMI *Q AMI Criteria *Q: - Problem List (1) Abscess, dental SNOMED Code(s): 773180620 ICD Code: K04.7 - PERIAPICAL ABSCESS WITHOUT SINUS Status: Acute Current Visit: Yes Problem List Initiated/Reviewed/Updated: Yes Orders Last 24hrs: Active Orders 24 hr Category Date Time Status BASIC METABOLIC PANEL,BMP [CHEM] AM Lab 09/02/16 05:15 Ordered CBC WITH AUTO DIFF [HEME] AM Lab 09/02/16 05:15 Ordered LACTIC ACID [CHEM] AM Lab 09/02/16 05:11 Ordered LACTIC ACID [CHEM] Timed Lab 09/01/16 23:30 Ordered Albuterol [Proventil Neb Soln] Med 09/01/16 21:32 Ordered 0.63 mg NEB TID PRN Clindamycin Phosphate [Cleocin] 600 mg Med 09/02/16 08:00 Active Sodium Chloride 0.9% [Normal Saline] 100 ml IV Q8H Clindamycin Phosphate [Cleocin] 600 mg Med 09/01/16 21:31 Active Sodium Chloride 0.9% [Normal Saline] 50 ml IV ONETIME Gabapentin Med 09/02/16 09:00 Ordered 900 mg PO TID Hydrochlorothiazide [Hydrochlorothiazide] Med 09/02/16 09:00 Ordered 50 mg PO DAILY Ibuprofen [Motrin] Med 09/01/16 21:32 Ordered DOSE mg PO TID PRN Insulin Glarg,Human.Rec.Analog Med 09/02/16 09:00 Ordered 8 units SQ DAILY Lisdexamfetamine Dimesylate [Vyvanse] Med 09/02/16 09:00 Ordered 60 mg PO DAILY Lisinopril [Prinivil] Med 09/02/16 09:00 Ordered 10 mg PO DAILY Morphine Med 09/01/16 21:32 Active 1 mg IVPUSH Q4H PRN Pantoprazole [ProTONIX] Med 09/02/16 09:00 Ordered 40 mg PO DAILY Potassium Chloride [Klor-Con 10] Med 09/01/16 21:38 Once 40 meq PO ONETIME ONE Potassium [Potassium] Med 09/02/16 09:00 Ordered 99 mg PO DAILY SitaGLIPtin [Januvia] Med 09/02/16 09:00 Ordered 100 mg PO DAILY Sodium Chloride 0.9% with KCl [Normal Saline with 40 Med 09/01/16 21:45 Ordered mEq KCl] 1,000 ml IV ASDIRECTED atorvaSTATin [Lipitor] Med 09/02/16 21:00 Ordered 20 mg PO BEDTIME busPIRone [Buspar] Med 09/02/16 09:00 Ordered 1 tab PO BID Medication Orders Albuterol (Proventil Neb Soln) 0.63 mg NEB TID PRN PRN Reason: Shortness of Breath Atorvastatin Calcium (Lipitor) 20 mg PO BEDTIME STEPHENIE Clindamycin Phosphate 600 mg/ (Sodium Chloride) 104 mls @ 200 mls/hr IV Q8H STEPHENIE Clindamycin Phosphate 600 mg/ (Sodium Chloride) 54 mls @ 50 mls/hr IV ONETIME ONE Stop: 09/01/16 22:22 Potassium Chloride/Sodium Chloride (Normal Saline With 40 Meq Kcl) 1,000 mls @ 100 mls/hr IV ASDIRECTED STEPHENIE Ibuprofen (Motrin) mg PO TID PRN PRN Reason: Pain Lisinopril (Prinivil) 10 mg PO DAILY STEPHENIE Morphine Sulfate (Morphine) 1 mg IVPUSH Q4H PRN PRN Reason: severe pain Non-Formulary Medication (Gabapentin) 900 mg PO TID STEPHENIE Non-Formulary Medication (Hydrochlorothiazide [Hydrochlorothiazide]) 50 mg PO DAILY STEPHENIE Non-Formulary Medication (Insulin Glarg,Human.Rec.Analog) 8 units SQ DAILY STEPHENIE Non-Formulary Medication (Lisdexamfetamine Dimesylate [Vyvanse]) 60 mg PO DAILY STEPHENIE Non-Formulary Medication (Pantoprazole [Protonix]) 40 mg PO DAILY STEPHENIE Non-Formulary Medication (Potassium [Potassium]) 99 mg PO DAILY STEPHENIE Non-Formulary Medication (Sitagliptin [Januvia]) 100 mg PO DAILY STEPHENIE Non-Formulary Medication (Buspirone [Buspar]) 1 tab PO BID STEPHENIE Potassium Chloride (Klor-Con 10) 40 meq PO ONETIME ONE Stop: 09/01/16 21:39 Assessment/Plan Comment:: Tooth abscess with possible sepsis (elevated lactic acid, leukocytosis, source of infection) No severe sepsis - repeat lactic acid Will obtain blood cultures Will treat with clindamycin IV On Saturday we'll need to arrange for a short-term surgical followup Hypokalemia Replace and recheck in the morning Hypertension Treated lisinopril, hydrochlorothiazide Diabetes Treat with glargine , Januvia Hold metformin Follow blood sugars, use supplemental insulin and hypoglycemia protocol as needed History of asthma No apparent acute exacerbation Use albuterol as needed Chronic pain, with history of drug abuse and drug abuse Continue with Neurontin Try to minimize narcotic use Continue ibuprofen as needed
[2016-09-01] MEDS: Morphine 2 MG/ML Syringe IVPUSH PRN (22:35)
[2016-09-01] MEDS ORDERED: Zolpidem 5 MG Tab PO PRN (23:53)
[2016-09-01] MEDS ORDERED: Docusate Sodium 100 MG Cap PO PRN (23:53)
[2016-09-01] MEDS ORDERED: Ondansetron 4 MG/2 ML SDV IVPUSH PRN (23:53)
[2016-09-01] MEDS ORDERED: 25% Dextrose in Water 10 ML Syringe IVPUSH PRN (23:57)
[2016-09-02] MEDS: Ibuprofen 800 MG Tab PO PRN ×2 (02:21→10:11)
[2016-09-02] MEDS: Morphine 2 MG/ML Syringe IVPUSH PRN ×3 (02:22→13:00)
[2016-09-02] MEDS: Clindamycin Phosphate 600 MG in Sodium Chloride 0.9% 100 ML IV SCH ×3 (06:01→22:50)
[2016-09-02] MEDS: Heparin Sodium 5,000 Units/ML Vial SUBCUT SCH ×3 (06:01→22:50)
[2016-09-02] MEDS: Pantoprazole 40 MG Tab.CR PO SCH (06:02)
[2016-09-02 06:41] LABS: CHLORIDE,CL 104 mmol/L (101-111); SODIUM,NA 136 mmol/L (135-145)
[2016-09-02] MEDS ORDERED: Clindamycin Phosphate 600 MG in Sodium Chloride 0.9% 100 ML IV SCH (08:00)
[2016-09-02] MEDS: Insulin Aspart 100 Units/ML 3 ML Pen SUBCUT SCH ×4 (08:23→22:40)
[2016-09-02] MEDS ORDERED: INSULIN GLARGINE SQ SCH (09:00)
[2016-09-02] MEDS ORDERED: [UNRECOGNIZED DRUG - OTHER] SQ SCH (09:00)
[2016-09-02] MEDS ORDERED: Non-Formulary Medication 1 Each (Potassium [Potassium] 99 MG) PO SCH (09:00)
[2016-09-02] MEDS ORDERED: BUSPIRONE PO SCH (09:00)
--- NOTE | 2016-09-02 10:00 | PCM.PN ---
- General Info Date of Service: 09/02/16 Admission Dx/Problem (Free Text): 35-year-old lady with a history of diabetes hypertension dyslipidemia presented with complaints of a few days of fever, chills, poor appetite Complaining of severe pain in the left lower jaw upper frontal jaw She was evaluated by facial surgery in my note on Saturday, she was told that she has areas of abscess and she will require surgical intervention with drainage of the abscesses and removal of a tooth. this was scheduled for September. She was not started on antibiotic. She was complaining of severe pain. Subjective Update: continues to have pain in the jaw, worse with eating. Lactic acid has improved. Complaining of a chills. - Review of Systems Pulmonary: Denies: shortness of breath Cardiovascular: Denies: Chest Pain Gastrointestinal: Denies: Abdominal pain Neurological: Denies: Confusion - Patient Data Vitals - most recent: Last Vital Signs Temp 36.4 C 09/02/16 07:00 Pulse 71 09/02/16 07:00 Resp 20 09/02/16 07:00 BP 104/63 09/02/16 07:00 Pulse Ox 99 09/02/16 07:00 Weight - most recent: 83.461 kg I&O - last 24 hours: Intake & Output 09/01/16 09/02/16 09/02/16 22:59 06:59 14:59 Intake Total 100 1474 Balance 100 1474 Lab Results last 24 hrs: Laboratory Results - last 24 hr 09/01/16 09/02/16 09/02/16 Range/Units 23:50 06:10 06:10 WBC 11.9 H (5.0-10.0) 10^3/uL RBC 3.96 L (4.2-5.4) 10^6/uL Hgb 10.5 L (12.0-16.0) g/dL Hct 33.0 L (37.0-47.0) % MCV 83.3 (80-100) fL MCH 26.5 L (27.0-34.0) pg MCHC 31.8 L (33.0-35.0) g/dL Plt Count 299 (150-450) 10^3/uL Neut % (Auto) 64.0 (42.2-75.2) % Lymph % (Auto) 26.3 (20.5-50.1) % [place] % (Auto) 7.1 (2-8) % Eos % (Auto) 2.4 (1.0-3.0) % Baso % (Auto) 0.2 (0.0-1.0) % Sodium 136 (135-145) mmol/L Potassium 4.2 (3.6-5.0) mmol/L Chloride 104 (101-111) mmol/L Carbon Dioxide 27.0 (21.0-31.0) mmol/L Anion Gap 9.2 BUN 16 (7-18) mg/dL Creatinine 0.6 (0.6-1.3) mg/dL Est Cr Clr Drug Dosing 120.18 mL/min Estimated GFR (MDRD) > 60 Glucose 80 (74-105) mg/dL POC Glucose (70-105) mg/dl Lactic Acid 3.2 H (0.5-2.2) mmol/L Calcium 8.2 L (8.4-10.2) mg/dl 09/02/16 09/02/16 Range/Units 06:10 08:06 WBC (5.0-10.0) 10^3/uL RBC (4.2-5.4) 10^6/uL Hgb (12.0-16.0) g/dL Hct (37.0-47.0) % MCV (80-100) fL MCH (27.0-34.0) pg MCHC (33.0-35.0) g/dL Plt Count (150-450) 10^3/uL Neut % (Auto) (42.2-75.2) % Lymph % (Auto) (20.5-50.1) % [place] % (Auto) (2-8) % Eos % (Auto) (1.0-3.0) % Baso % (Auto) (0.0-1.0) % Sodium (135-145) mmol/L Potassium (3.6-5.0) mmol/L Chloride (101-111) mmol/L Carbon Dioxide (21.0-31.0) mmol/L Anion Gap BUN (7-18) mg/dL Creatinine (0.6-1.3) mg/dL Est Cr Clr Drug Dosing mL/min Estimated GFR (MDRD) Glucose (74-105) mg/dL POC Glucose 81 (70-105) mg/dl Lactic Acid 1.1 (0.5-2.2) mmol/L Calcium (8.4-10.2) mg/dl Med Orders - Current: Current Medications Albuterol (Proventil Neb Soln) 0.63 mg NEB TID PRN PRN Reason: Shortness of Breath Atorvastatin Calcium (Lipitor) 20 mg PO BEDTIME [facility] Dextrose/Water (Dextrose 25% In Water) 10 ml IVPUSH ONETIME PRN PRN Reason: glucose <60 Docusate Sodium (Colace) 100 mg PO BID PRN PRN Reason: Constipation Gabapentin (Neurontin) 900 mg PO TID [facility] Heparin Sodium (Porcine) (Heparin Sodium) 5,000 units SUBCUT Q8HR [facility] Last Admin: 09/02/16 06:01 Dose: 5,000 units Hydrochlorothiazide (Hydrochlorothiazide) 50 mg PO DAILY [facility] Potassium Chloride/Sodium Chloride (Normal Saline With 40 Meq Kcl) 1,000 mls @ 100 mls/hr IV ASDIRECTED [facility] Last Admin: 09/01/16 22:37 Dose: 100 mls/hr Clindamycin Phosphate 600 mg/ (Sodium Chloride) 104 mls @ 200 mls/hr IV Q8H [facility] Last Admin: 09/02/16 06:01 Dose: 200 mls/hr Ibuprofen (Motrin) 800 mg PO TID PRN PRN Reason: Pain Last Admin: 09/02/16 02:21 Dose: 800 mg Insulin Aspart (Novolog) 0 unit SUBCUT QIDACANDBED [facility] PRN Reason: Protocol Last Admin: 09/02/16 08:23 Dose: Not Given Insulin Detemir (Levemir) 8 unit SUBCUT DAILY [facility] Lisinopril (Prinivil) 10 mg PO DAILY [facility] Morphine Sulfate (Morphine) 1 mg IVPUSH Q4H PRN PRN Reason: severe pain Last Admin: 09/02/16 07:36 Dose: 1 mg Non-Formulary Medication (Lisdexamfetamine Dimesylate [Vyvanse]) 60 mg PO DAILY [facility] Non-Formulary Medication (Potassium [Potassium]) 99 mg PO DAILY [facility] Non-Formulary Medication (Sitagliptin [Januvia]) 100 mg PO DAILY [facility] Non-Formulary Medication (Buspirone [Buspar]) 1 tab PO BID [facility] Ondansetron HCl (Zofran) 4 mg IVPUSH Q4H PRN PRN Reason: Nausea/Vomiting Pantoprazole Sodium (Protonix) 40 mg PO ACBRK [facility] Last Admin: 09/02/16 06:02 Dose: 40 mg Sodium Chloride (Saline Flush) 10 ml FLUSH ASDIRECTED PRN PRN Reason: Keep Vein Open Zolpidem Tartrate (Ambien) 5 mg PO BEDTIME PRN PRN Reason: Sleep Discontinued Medications Hydrocodone Bitart/Acetaminophen ([place] 325-10 Mg) 1 tab PO ONETIME ONE Stop: 09/01/16 21:04 Last Admin: 09/01/16 21:09 Dose: 1 tab Clindamycin Phosphate 600 mg/ (Sodium Chloride) 104 mls @ 200 mls/hr IV Q8H [facility] Clindamycin Phosphate 600 mg/ (Sodium Chloride) 54 mls @ 50 mls/hr IV ONETIME ONE Stop: 09/01/16 22:22 Last Admin: 09/01/16 21:57 Dose: 50 mls/hr Potassium Chloride (Klor-Con 10) 40 meq PO ONETIME ONE Stop: 09/01/16 21:39 Last Admin: 09/01/16 22:36 Dose: 40 meq - Exam General: alert, oriented HEENT: Other (no obvious facial swelling or redness) Neck: supple Lungs: Clear to auscultation Cardiovascular: Regular Rate, Regular Rhythm Abdomen: bowel sounds present, soft, no tenderness, no distension Extremities: no edema Skin: warm, dry, intact Neurological: no new focal deficit Psy/Mental Status: alert, normal affect, normal mood - Problem List & Annotations (1) Abscess, dental SNOMED Code(s): 817813363 Code(s): K04.7 - PERIAPICAL ABSCESS WITHOUT SINUS Status: Acute Current Visit: Yes - Problem List Review Problem List Initiated/Reviewed/Updated: Yes - My Orders Last 24 Hours: My Active Orders 09/01/16 21:32 Albuterol [Proventil Neb Soln] 0.63 mg NEB TID PRN Ibuprofen [Motrin] 800 mg PO TID PRN Morphine 1 mg IVPUSH Q4H PRN 09/01/16 21:45 Sodium Chloride 0.9% with KCl [Normal Saline with 40 mEq KCl] 1,000 ml IV ASDIRECTED 09/01/16 23:53 Patient Status [ADT] Routine Blood Glucose Check, Bedside [RC] QIDACANDBED Oxygen Therapy [RC] PRN Up With Assistance [RC] ASDIRECTED VTE/DVT Education [RC] PER UNIT ROUTINE Vital Signs [RC] 07,11,15,19,23,03 Docusate Sodium [Colace] 100 mg PO BID PRN Ondansetron [Zofran] 4 mg IVPUSH Q4H PRN Sodium Chloride 0.9% [Saline Flush] 10 ml FLUSH ASDIRECTED PRN Zolpidem [Ambien] 5 mg PO BEDTIME PRN Peripheral IV Insertion Adult [OM.PC] Routine Resuscitation Status Routine 09/01/16 23:55 Sequential Compression Device [OM.PC] Per Unit Routine 09/01/16 23:56 Antiembolic Devices [RC] PER UNIT ROUTINE Peripheral IV Care [RC] 08,20 09/01/16 23:57 Dextrose 25% in Water 10 ml IVPUSH ONETIME PRN 09/02/16 06:00 Clindamycin Phosphate [Cleocin] 600 mg Sodium Chloride 0.9% [Normal Saline] 100 ml IV Q8H Heparin Sodium 5,000 units SUBCUT Q8HR Pantoprazole [ProTONIX] 40 mg PO ACBRK 09/02/16 07:00 Insulin Aspart [NovoLOG] See Protocol SUBCUT QIDACANDBED 09/02/16 09:00 Gabapentin [Neurontin] 900 mg PO TID Hydrochlorothiazide 50 mg PO DAILY Insulin Detemir [Levemir] 8 unit SUBCUT DAILY Lisdexamfetamine Dimesylate [Vyvanse] 60 mg PO DAILY Lisinopril [Prinivil] 10 mg PO DAILY Potassium [Potassium] 99 mg PO DAILY SitaGLIPtin [Januvia] 100 mg PO DAILY busPIRone [Buspar] 1 tab PO BID 09/02/16 21:00 atorvaSTATin [Lipitor] 20 mg PO BEDTIME 09/02/16 Breakfast Consistent Carbohydrate Diet [DIET] - Plan Plan:: Tooth abscess with possible sepsis (elevated lactic acid, leukocytosis, source of infection) No severe sepsis - repeat lactic acid has normalized pending blood cultures Will treat with clindamycin IV On Saturday we'll need to arrange for a short-term surgical followup Hypokalemia Replaced recheck in the morning Hypertension Treat with lisinopril, hydrochlorothiazide Diabetes Treat with glargine, Januvia Hold metformin Follow blood sugars, use supplemental insulin and hypoglycemia protocol as needed History of asthma No apparent acute exacerbation Use albuterol as needed Chronic pain, with history of drug abuse and drug abuse Continue with Neurontin Try to minimize narcotic use Continue ibuprofen as needed
[2016-09-02] MEDS ORDERED: Sodium Chloride 0.9% 10 ML Syringe FLUSH PRN (10:05)
[2016-09-02] MEDS: Gabapentin 300 MG Cap PO SCH ×3 (10:11→21:09)
[2016-09-02] MEDS: Hydrochlorothiazide 25 MG Tab PO SCH (10:12)
[2016-09-02] MEDS: Insulin Detemir 100 Units/ML 3 ML Pen SUBCUT SCH (10:13)
[2016-09-02] MEDS: Lisinopril 10 MG Tab PO SCH (10:13)
[2016-09-02] MEDS ORDERED: busPIRone 15 MG Tab PO SCH (11:00)
[2016-09-02] MEDS: busPIRone 15 MG Tab PO SCH ×2 (12:38→21:11)
[2016-09-02] MEDS: Sodium Chloride 0.9% 10 ML Syringe FLUSH PRN ×3 (13:00→15:22)
[2016-09-02] MEDS: oxyCODONE 5 MG Tab PO PRN ×2 (15:21→21:10)
[2016-09-02] MEDS: SITAGLIPTIN 100 MG PO SCH (17:16)
[2016-09-02] MEDS: LISDEXAMFETAMINE DIMESYLATE 60 MG PO SCH (17:16)
[2016-09-02] MEDS: atorvaSTATin 20 MG Tab PO SCH (21:11)
[2016-09-03] MEDS: Ibuprofen 800 MG Tab PO PRN ×3 (00:58→14:10)
[2016-09-03] MEDS: oxyCODONE 5 MG Tab PO PRN ×5 (00:59→22:29)
[2016-09-03] MEDS: Heparin Sodium 5,000 Units/ML Vial SUBCUT SCH ×3 (05:26→22:17)
[2016-09-03] MEDS: Pantoprazole 40 MG Tab.CR PO SCH (05:26)
[2016-09-03] MEDS: Clindamycin Phosphate 600 MG in Sodium Chloride 0.9% 100 ML IV SCH ×3 (05:27→22:21)
[2016-09-03 07:02] LABS: CHLORIDE,CL 104 mmol/L (101-111); SODIUM,NA 137 mmol/L (135-145)
[2016-09-03] MEDS: Insulin Aspart 100 Units/ML 3 ML Pen SUBCUT SCH ×4 (08:29→22:31)
[2016-09-03] MEDS: Potassium Chloride 10 MEQ Tab.ER PO SCH (09:37)
[2016-09-03] MEDS: busPIRone 15 MG Tab PO SCH ×2 (09:38→22:16)
[2016-09-03] MEDS: Hydrochlorothiazide 25 MG Tab PO SCH (09:38)
[2016-09-03] MEDS: Gabapentin 300 MG Cap PO SCH ×3 (09:38→22:16)
[2016-09-03] MEDS: SITAGLIPTIN 100 MG PO SCH (09:39)
[2016-09-03] MEDS: Lisinopril 10 MG Tab PO SCH (09:39)
[2016-09-03] MEDS: LISDEXAMFETAMINE DIMESYLATE 60 MG PO SCH (09:40)
[2016-09-03] MEDS: Insulin Detemir 100 Units/ML 3 ML Pen SUBCUT SCH (09:41)
[2016-09-03] MEDS: Morphine 2 MG/ML Syringe IVPUSH PRN ×3 (10:00→19:51)
--- NOTE | 2016-09-03 13:37 | PCM.PN ---
- General Info Date of Service: 09/03/16 Admission Dx/Problem (Free Text): possible dental abscess Subjective Update: patient is still complaining of pain in the left jaw, it is worse with eating. she still complained of chills. She denies sinus congestion, sore throat, difficulty breathing, shortness breath, chest pain, nausea, vomiting, but nothing current symptoms, weakness, unilateral weakness/numbness/tingling, or any other symptoms. - Patient Data Vitals - most recent: Last Vital Signs Temp 36.1 C 09/03/16 11:00 Pulse 84 09/03/16 11:00 Resp 20 09/03/16 11:00 BP 106/61 09/03/16 11:00 Pulse Ox 93 L 09/03/16 11:00 Weight - most recent: 83.461 kg I&O - last 24 hours: Intake & Output 09/02/16 09/03/16 09/03/16 22:59 06:59 14:59 Intake Total 1561 Balance 1561 Lab Results last 24 hrs: Laboratory Results - last 24 hr 09/02/16 09/02/16 09/03/16 Range/Units 16:47 21:47 06:25 WBC 9.7 (5.0-10.0) 10^3/uL RBC 3.90 L (4.2-5.4) 10^6/uL Hgb 10.4 L (12.0-16.0) g/dL Hct 32.8 L (37.0-47.0) % MCV 84.1 (80-100) fL MCH 26.7 L (27.0-34.0) pg MCHC 31.7 L (33.0-35.0) g/dL Plt Count 292 (150-450) 10^3/uL Neut % (Auto) 62.6 (42.2-75.2) % Lymph % (Auto) 28.6 (20.5-50.1) % [place] % (Auto) 6.2 (2-8) % Eos % (Auto) 2.4 (1.0-3.0) % Baso % (Auto) 0.2 (0.0-1.0) % Add Manual Diff Yes Neutrophils % (Manual) 54 % Lymphocytes % (Manual) 37 % Monocytes % (Manual) 6 % Eosinophils % (Manual) 3 % Sodium (135-145) mmol/L Potassium (3.6-5.0) mmol/L Chloride (101-111) mmol/L Carbon Dioxide (21.0-31.0) mmol/L Anion Gap BUN (7-18) mg/dL Creatinine (0.6-1.3) mg/dL Est Cr Clr Drug Dosing mL/min Estimated GFR (MDRD) Glucose (74-105) mg/dL POC Glucose 98 128 H (70-105) mg/dl Calcium (8.4-10.2) mg/dl 09/03/16 09/03/16 09/03/16 Range/Units 06:25 07:57 11:11 WBC (5.0-10.0) 10^3/uL RBC (4.2-5.4) 10^6/uL Hgb (12.0-16.0) g/dL Hct (37.0-47.0) % MCV (80-100) fL MCH (27.0-34.0) pg MCHC (33.0-35.0) g/dL Plt Count (150-450) 10^3/uL Neut % (Auto) (42.2-75.2) % Lymph % (Auto) (20.5-50.1) % [place] % (Auto) (2-8) % Eos % (Auto) (1.0-3.0) % Baso % (Auto) (0.0-1.0) % Add Manual Diff Neutrophils % (Manual) % Lymphocytes % (Manual) % Monocytes % (Manual) % Eosinophils % (Manual) % Sodium 137 (135-145) mmol/L Potassium 3.7 (3.6-5.0) mmol/L Chloride 104 (101-111) mmol/L Carbon Dioxide 28.0 (21.0-31.0) mmol/L Anion Gap 8.7 BUN 10 (7-18) mg/dL Creatinine 0.6 (0.6-1.3) mg/dL Est Cr Clr Drug Dosing 120.18 mL/min Estimated GFR (MDRD) > 60 Glucose 90 (74-105) mg/dL POC Glucose 95 75 (70-105) mg/dl Calcium 8.0 L (8.4-10.2) mg/dl 09/03/16 Range/Units 12:35 WBC (5.0-10.0) 10^3/uL RBC (4.2-5.4) 10^6/uL Hgb (12.0-16.0) g/dL Hct (37.0-47.0) % MCV (80-100) fL MCH (27.0-34.0) pg MCHC (33.0-35.0) g/dL Plt Count (150-450) 10^3/uL Neut % (Auto) (42.2-75.2) % Lymph % (Auto) (20.5-50.1) % [place] % (Auto) (2-8) % Eos % (Auto) (1.0-3.0) % Baso % (Auto) (0.0-1.0) % Add Manual Diff Neutrophils % (Manual) % Lymphocytes % (Manual) % Monocytes % (Manual) % Eosinophils % (Manual) % Sodium (135-145) mmol/L Potassium (3.6-5.0) mmol/L Chloride (101-111) mmol/L Carbon Dioxide (21.0-31.0) mmol/L Anion Gap BUN (7-18) mg/dL Creatinine (0.6-1.3) mg/dL Est Cr Clr Drug Dosing mL/min Estimated GFR (MDRD) Glucose (74-105) mg/dL POC Glucose 153 H (70-105) mg/dl Calcium (8.4-10.2) mg/dl Med Orders - Current: Current Medications Albuterol (Proventil Neb Soln) 0.63 mg NEB TID PRN PRN Reason: Shortness of Breath Atorvastatin Calcium (Lipitor) 20 mg PO BEDTIME [facility] Last Admin: 09/02/16 21:11 Dose: 20 mg Buspirone HCl (Buspar) 15 mg PO BID [facility] Last Admin: 09/03/16 09:38 Dose: 15 mg Dextrose/Water (Dextrose 25% In Water) 10 ml IVPUSH ONETIME PRN PRN Reason: glucose <60 Docusate Sodium (Colace) 100 mg PO BID PRN PRN Reason: Constipation Gabapentin (Neurontin) 900 mg PO TID [facility] Last Admin: 09/03/16 09:38 Dose: 900 mg Heparin Sodium (Porcine) (Heparin Sodium) 5,000 units SUBCUT Q8HR [facility] Last Admin: 09/03/16 05:26 Dose: 5,000 units Hydrochlorothiazide (Hydrochlorothiazide) 50 mg PO DAILY [facility] Last Admin: 09/03/16 09:38 Dose: 50 mg Clindamycin Phosphate 600 mg/ (Sodium Chloride) 104 mls @ 200 mls/hr IV Q8HR [facility] Ibuprofen (Motrin) 800 mg PO TID PRN PRN Reason: Pain Last Admin: 09/03/16 08:19 Dose: 800 mg Insulin Aspart (Novolog) 0 unit SUBCUT QIDACANDBED [facility] PRN Reason: Protocol Last Admin: 09/03/16 12:00 Dose: Not Given Insulin Detemir (Levemir) 8 unit SUBCUT DAILY [facility] Last Admin: 09/03/16 09:41 Dose: 8 units Lisinopril (Prinivil) 10 mg PO DAILY [facility] Last Admin: 09/03/16 09:39 Dose: 10 mg Morphine Sulfate (Morphine) 1 mg IVPUSH Q4H PRN PRN Reason: severe pain Last Admin: 09/03/16 10:00 Dose: 1 mg Lisdexamfetamine Dimesylate (Vyvanse) 60 Mg Own Med 0 mg PO DAILY [facility] Last Admin: 09/03/16 09:40 Dose: 60 mg Sitagliptin (Januvia () 100 Mg Own Med) 0 mg PO DAILY [facility] Last Admin: 09/03/16 09:39 Dose: 100 mg Ondansetron HCl (Zofran) 4 mg IVPUSH Q4H PRN PRN Reason: Nausea/Vomiting Oxycodone HCl (Oxycodone) 5 mg PO Q4H PRN PRN Reason: severe pain Last Admin: 09/03/16 11:40 Dose: 5 mg Pantoprazole Sodium (Protonix) 40 mg PO ACBRK [facility] Last Admin: 09/03/16 05:26 Dose: 40 mg Potassium Chloride (Klor-Con 10) 20 meq PO WITHBREAKFAST [facility] Last Admin: 09/03/16 09:37 Dose: 20 meq Sodium Chloride (Saline Flush) 10 ml FLUSH ASDIRECTED PRN PRN Reason: Keep Vein Open Last Admin: 09/02/16 15:22 Dose: 10 ml Sodium Chloride (Saline Flush) 10 ml FLUSH ASDIRECTED PRN PRN Reason: Keep Vein Open Zolpidem Tartrate (Ambien) 5 mg PO BEDTIME PRN PRN Reason: Sleep Discontinued Medications Hydrocodone Bitart/Acetaminophen ([place] 325-10 Mg) 1 tab PO ONETIME ONE Stop: 09/01/16 21:04 Last Admin: 09/01/16 21:09 Dose: 1 tab Buspirone HCl (Buspar) 10 mg PO BID [facility] Last Admin: 09/02/16 12:03 Dose: Not Given Clindamycin Phosphate 600 mg/ (Sodium Chloride) 104 mls @ 200 mls/hr IV Q8H [facility] Clindamycin Phosphate 600 mg/ (Sodium Chloride) 54 mls @ 50 mls/hr IV ONETIME ONE Stop: 09/01/16 22:22 Last Admin: 09/01/16 21:57 Dose: 50 mls/hr Potassium Chloride/Sodium Chloride (Normal Saline With 40 Meq Kcl) 1,000 mls @ 100 mls/hr IV ASDIRECTED [facility] Last Admin: 09/01/16 22:37 Dose: 100 mls/hr Clindamycin Phosphate 600 mg/ (Sodium Chloride) 104 mls @ 200 mls/hr IV Q8H [facility] Last Admin: 09/03/16 05:27 Dose: 200 mls/hr Non-Formulary Medication (Potassium [Potassium]) 99 mg PO DAILY [facility] Last Admin: 09/02/16 10:38 Dose: Not Given Non-Formulary Medication (Buspirone [Buspar]) 1 tab PO BID [facility] Last Admin: 09/02/16 10:38 Dose: Not Given Potassium Chloride (Klor-Con 10) 40 meq PO ONETIME ONE Stop: 09/01/16 21:39 Last Admin: 09/01/16 22:36 Dose: 40 meq - Exam General: alert, oriented, cooperative, mild distress (because of the jaw pain). No: severe distress HEENT: Pupils equal, Pupils reactive, EOMI, Mucous membr. moist/pink, Other ( throat looks normal, no mouth swelling or drainage. No facial swelling. She has left facial tenderness above the upper jaw) Neck: supple, trachea midline, no JVD Lungs: Clear to auscultation, Normal respiratory effort. No: Decreased breath sounds, Crackles, Rales, Rhonchi, Rub, Stridor, Wheezing Cardiovascular: Regular Rate, Regular Rhythm, No Murmurs. No: Tachycardia Abdomen: bowel sounds present, soft, no tenderness, no distension. No: rigidity , rebound, guarding, tenderness, distension, abnormal bowel sounds, CVA tenderness (Female) Exam: Deferred Back Exam: normal inspection, full range of motion Extremities: no edema, normal pulses, no tenderness/swelling, no clubbing, no cyanosis Skin: warm, dry, intact Wound/Incisions: healing well Neurological: no new focal deficit, normal speech, normal tone Psy/Mental Status: alert, normal affect, normal mood. No: agitated, suicidal ideation, homicidal ideation, hallucinations - Problem List Review Problem List Initiated/Reviewed/Updated: Yes - Plan Plan:: Tooth abscess with possible sepsis (elevated lactic acid, leukocytosis, source of infection) patient stated that she was diagnosed with dental abscess last week and was supposed to have his surgery for that but she missed her appointment due to unavailable transportation No severe sepsis - repeat lactic acid has normalized pending blood cultures -continue clindamycin IV -arrange them they'll follow up in Hypokalemia, resolved Replace as needed Hypertension continue lisinopril, hydrochlorothiazide Diabetes mellitus Treat with glargine, Januvia -continue to hold metformin due to elevated lactic acid yesterday Follow blood sugars, use supplemental insulin and hypoglycemia protocol as needed History of asthma No apparent acute exacerbation albuterol as needed Chronic pain, with history of drug abuse and drug abuse Continue with Neurontin Try to minimize narcotic use Continue ibuprofen as needed blood cultures still negative tomorrow we'll discharge patient to followup with the dentist. We are working on getting her appointment with a dentist as soon as possible heparin for DVT prophylaxis
[2016-09-03] MEDS ORDERED: Heparin Sodium 5,000 Units/ML Vial SUBCUT SCH (14:00)
[2016-09-03] MEDS: Sodium Chloride 0.9% 10 ML Syringe FLUSH PRN ×4 (14:11→23:20)
[2016-09-03] MEDS: atorvaSTATin 20 MG Tab PO SCH (22:16)
[2016-09-04] MEDS: Clindamycin Phosphate 600 MG in Sodium Chloride 0.9% 100 ML IV SCH ×2 (06:17→16:55)
[2016-09-04] MEDS: Sodium Chloride 0.9% 10 ML Syringe FLUSH PRN (06:17)
[2016-09-04] MEDS: Pantoprazole 40 MG Tab.CR PO SCH (06:20)
[2016-09-04] MEDS: Heparin Sodium 5,000 Units/ML Vial SUBCUT SCH ×2 (06:20→16:55)
[2016-09-04] MEDS: oxyCODONE 5 MG Tab PO PRN ×2 (06:30→13:00)
--- NOTE | 2016-09-04 09:15 | PCM.DCSUM1 ---
Discharge Summary - Hospital Course Free Text/Narrative:: 35-year-old lady with a history of diabetes, hypertension, dyslipidemia, Asthma , alcohol abuse, drug abuse presented with complaints of a few days of fever, chills, poor appetite and severe pain in the left upper frontal/mid jaw. She was evaluated by facial surgery the day before admission and was told that she has areas of abscess and she will require surgical intervention with drainage of the abscesses and removal of a tooth. this was scheduled for September. She was not started on antibiotic. according to her, she had prior appointment for surgery but she missed her appointment due to problem with transportation. on admission her WBC were 14.8 with mild left shift. Potassium 3.1. Lactic acid 3.2. blood cultures were obtained and were negative for 48 hours. She was started on clindamycin IV. Clinically patient improved and her WBC became normal. She still complaining of some pain in her left face. She denies difficulty breathing, swelling in the mouth, fever, chills since admission. she said appointment with dentist tomorrow and she states she will make it there has already arranged transportation. Patient was discharged on clindamycin 600 mg every 8 hours. Her blood sugar was well controlled during the hospitalization. Patient verbalized understanding and agreed with the plan - Discharge Data Discharge Date: 09/04/16 Discharge Disposition: Home, Self-Care 01 Condition: Good - Discharge Diagnosis/Problem(s) (1) At risk for abuse of opiates SNOMED Code(s): 37957938 ICD Code: Z91.89 - OTH PERSONAL RISK FACTORS, NOT ELSEWHERE CLASSIFIED Status: Chronic Current Visit: Yes (2) Opiate abuse, continuous SNOMED Code(s): 3304614 ICD Code: F11.10 - OPIOID ABUSE, UNCOMPLICATED Status: Chronic Current Visit: Yes (3) Abscess, dental SNOMED Code(s): 123420697 ICD Code: K04.7 - PERIAPICAL ABSCESS WITHOUT SINUS Status: Acute Current Visit: Yes (4) Alcohol abuse SNOMED Code(s): 57437264 ICD Code: F10.10 - ALCOHOL ABUSE, UNCOMPLICATED Status: Chronic Current Visit: No (5) Diabetes mellitus SNOMED Code(s): 94444292 ICD Code: E11.9 - TYPE 2 DIABETES MELLITUS WITHOUT COMPLICATIONS Status: Chronic Current Visit: Yes (6) Asthma SNOMED Code(s): 868184016 ICD Code: J45.909 - UNSPECIFIED ASTHMA, UNCOMPLICATED Status: Chronic Current Visit: Yes (7) Hypokalemia SNOMED Code(s): 26558895 ICD Code: E87.6 - HYPOKALEMIA Status: Chronic Current Visit: No (8) Hypokalemia SNOMED Code(s): 24425276 ICD Code: E87.6 - HYPOKALEMIA Status: Chronic Current Visit: No - Patient Instructions Diet: Heart Healthy Diet Activity: As Tolerated Showering/Bathing: August Shower Notify Provider of: Fever - Discharge Plan Prescriptions/Med Rec: Clindamycin Phosphate [Cleocin] 600 mg IV Q8HR 10 Days Home Medications: Home Meds Albuterol Sulfate [Albuterol Sulfate HFA] 8.5 gm IH ASDIRECTED PRN 04/11/13 [ History] Gabapentin [Neurontin] 900 mg PO TID 04/11/13 [History] Lisinopril 10 mg PO DAILY 04/11/13 [History] Pantoprazole [ProTONIX] 40 mg PO DAILY 04/11/13 [History] Hydrochlorothiazide 50 mg PO DAILY 09/23/15 [History] Lisdexamfetamine Dimesylate [Vyvanse] 60 mg PO DAILY 09/23/15 [History] SitaGLIPtin [Januvia] 100 mg PO DAILY 09/23/15 [History] metFORMIN HCl [Metformin HCl ER] 1,000 mg PO BID 09/23/15 [History] Insulin Glarg,Human.Rec.Analog [Lantus] 8 units SQ DAILY 04/19/16 [History] atorvaSTATin [Lipitor] 20 mg PO BEDTIME 07/20/16 [History] busPIRone [Buspar] 10 mg PO BID 08/11/16 [History] Potassium Chloride 10 meq PO DAILY 09/02/16 [History] Clindamycin Phosphate [Cleocin] 600 mg IV Q8HR 10 Days 09/04/16 [Rx] Ibuprofen 800 mg PO TID PRN 5 Days 09/04/16 [Rx] Referrals: PCP,None [Primary Care Provider] - - General Info Date of Service: 09/04/16 Admission Dx/Problem (Free Text: possible dental abscess - Review of Systems General: Reports: No Symptoms HEENT: Denies: dysphasia, eye pain, headaches, post nasal drip, sinus congestion , sore throat, rhinitis, visual changes Pulmonary: Reports: no symptoms Cardiovascular: Reports: No Symptoms Gastrointestinal: Reports: No symptoms Genitourinary: Reports: no symptoms Musculoskeletal: Reports: no symptoms Skin: Reports: no symptoms Neurological: Reports: No Symptoms Psychiatric: Denies: anxiety, agitation, hallucinations, suicidal ideation, homicidal ideation - Patient Data Vitals - Most Recent: Last Vital Signs Temp 37.0 C 09/04/16 07:46 Pulse 89 09/04/16 07:46 Resp 20 09/04/16 07:46 BP 85/47 L 09/04/16 07:46 Pulse Ox 99 09/04/16 07:46 Weight - Most Recent: 83.461 kg I&O - Last 24 hours: Intake & Output 09/03/16 09/04/16 09/04/16 22:59 06:59 14:59 Intake Total 1300 100 100 Balance 1300 100 100 Lab Results - Last 24 hrs: Laboratory Results - last 24 hr 09/03/16 09/03/16 09/03/16 Range/Units 11:11 12:35 16:45 POC Glucose 75 153 H 93 (70-105) mg/dl 09/03/16 Range/Units 21:09 POC Glucose 121 H (70-105) mg/dl Med Orders - Current: Current Medications Albuterol (Proventil Neb Soln) 0.63 mg NEB TID PRN PRN Reason: Shortness of Breath Atorvastatin Calcium (Lipitor) 20 mg PO BEDTIME [facility] Last Admin: 09/03/16 22:16 Dose: 20 mg Buspirone HCl (Buspar) 15 mg PO BID [facility] Last Admin: 09/03/16 22:16 Dose: 15 mg Dextrose/Water (Dextrose 25% In Water) 10 ml IVPUSH ONETIME PRN PRN Reason: glucose <60 Docusate Sodium (Colace) 100 mg PO BID PRN PRN Reason: Constipation Gabapentin (Neurontin) 900 mg PO TID [facility] Last Admin: 09/03/16 22:16 Dose: 900 mg Heparin Sodium (Porcine) (Heparin Sodium) 5,000 units SUBCUT Q8HR [facility] Last Admin: 09/04/16 06:20 Dose: 5,000 units Hydrochlorothiazide (Hydrochlorothiazide) 50 mg PO DAILY [facility] Last Admin: 05/08/17 09:38 Dose: 50 mg Clindamycin Phosphate 600 mg/ (Sodium Chloride) 104 mls @ 200 mls/hr IV Q8HR [facility] Last Admin: 09/04/16 06:17 Dose: 200 mls/hr Ibuprofen (Motrin) 800 mg PO TID PRN PRN Reason: Pain Last Admin: 09/03/16 14:10 Dose: 800 mg Insulin Aspart (Novolog) 0 unit SUBCUT QIDACANDBED [facility] PRN Reason: Protocol Last Admin: 09/03/16 22:31 Dose: Not Given Insulin Detemir (Levemir) 8 unit SUBCUT DAILY [facility] Last Admin: 09/03/16 09:41 Dose: 8 units Lisinopril (Prinivil) 10 mg PO DAILY [facility] Last Admin: 09/03/16 09:39 Dose: 10 mg Morphine Sulfate (Morphine) 1 mg IVPUSH Q4H PRN PRN Reason: severe pain Last Admin: 09/03/16 19:51 Dose: 1 mg Lisdexamfetamine Dimesylate (Vyvanse) 60 Mg Own Med 0 mg PO DAILY [facility] Last Admin: 09/03/16 09:40 Dose: 60 mg Sitagliptin (Januvia () 100 Mg Own Med) 0 mg PO DAILY [facility] Last Admin: 09/03/16 09:39 Dose: 100 mg Ondansetron HCl (Zofran) 4 mg IVPUSH Q4H PRN PRN Reason: Nausea/Vomiting Oxycodone HCl (Oxycodone) 5 mg PO Q4H PRN PRN Reason: severe pain Last Admin: 09/04/16 06:30 Dose: 5 mg Pantoprazole Sodium (Protonix) 40 mg PO ACBRK [facility] Last Admin: 09/04/16 06:20 Dose: 40 mg Potassium Chloride (Klor-Con 10) 20 meq PO WITHBREAKFAST [facility] Last Admin: 09/03/16 09:37 Dose: 20 meq Sodium Chloride (Saline Flush) 10 ml FLUSH ASDIRECTED PRN PRN Reason: Keep Vein Open Last Admin: 09/04/16 06:17 Dose: 10 ml Zolpidem Tartrate (Ambien) 5 mg PO BEDTIME PRN PRN Reason: Sleep Last Admin: 09/03/16 22:29 Dose: 5 mg Discontinued Medications Hydrocodone Bitart/Acetaminophen ([place] 325-10 Mg) 1 tab PO ONETIME ONE Stop: 09/01/16 21:04 Last Admin: 09/01/16 21:09 Dose: 1 tab Buspirone HCl (Buspar) 10 mg PO BID [facility] Last Admin: 09/02/16 12:03 Dose: Not Given Heparin Sodium (Porcine) (Heparin Sodium) 5,000 units SUBCUT Q8HR [facility] Last Admin: 09/03/16 14:26 Dose: Not Given Clindamycin Phosphate 600 mg/ (Sodium Chloride) 104 mls @ 200 mls/hr IV Q8H [facility] Clindamycin Phosphate 600 mg/ (Sodium Chloride) 54 mls @ 50 mls/hr IV ONETIME ONE Stop: 09/01/16 22:22 Last Admin: 09/01/16 21:57 Dose: 50 mls/hr Potassium Chloride/Sodium Chloride (Normal Saline With 40 Meq Kcl) 1,000 mls @ 100 mls/hr IV ASDIRECTED [facility] Last Admin: 09/01/16 22:37 Dose: 100 mls/hr Clindamycin Phosphate 600 mg/ (Sodium Chloride) 104 mls @ 200 mls/hr IV Q8H [facility] Last Admin: 09/03/16 05:27 Dose: 200 mls/hr Non-Formulary Medication (Potassium [Potassium]) 99 mg PO DAILY [facility] Last Admin: 09/02/16 10:38 Dose: Not Given Non-Formulary Medication (Buspirone [Buspar]) 1 tab PO BID [facility] Last Admin: 09/02/16 10:38 Dose: Not Given Potassium Chloride (Klor-Con 10) 40 meq PO ONETIME ONE Stop: 09/01/16 21:39 Last Admin: 09/01/16 22:36 Dose: 40 meq Sodium Chloride (Saline Flush) 10 ml FLUSH ASDIRECTED PRN PRN Reason: Keep Vein Open - Exam General: Reports: alert, oriented, cooperative, no acute distress. Denies: moderate distress, severe distress, sedated, lethargic, obtunded HEENT: Reports: Pupils equal, Pupils reactive, Mucous membr. moist/pink, Other ( number bilateral ear cannal and TMs) Neck: Reports: supple, trachea midline, no JVD Lungs: Reports: Clear to auscultation, Normal respiratory effort. Denies: Crackles, Rales, Rhonchi, Rub, Stridor, Wheezing Cardiovascular: Reports: Rubs Abdomen: Reports: bowel sounds present, soft, no tenderness. Denies: rigidity, rebound, guarding, tenderness, distension, CVA tenderness (Female) Exam: Deferred Rectal (Female) Exam: Deferred Back Exam: Reports: normal inspection, full range of motion Extremities: Reports: no edema, normal pulses, no tenderness/swelling, no clubbing, no cyanosis, no calf tenderness Skin: Reports: warm, dry, intact Neurological: Reports: no new focal deficit, normal gait, normal speech, normal tone Psy/Mental Status: Reports: alert, normal affect, normal mood. Denies: agitated , suicidal ideation, homicidal ideation, hallucinations, withdrawal symptoms *Q Meaningful Use (DIS) - VTE *Q VTE Criteria *Q: - Stroke *Q Stroke Criteria *Q: - AMI *Q AMI Criteria *Q:
[2016-09-04] MEDS: Lisinopril 10 MG Tab PO SCH (09:57)
[2016-09-04] MEDS: Hydrochlorothiazide 25 MG Tab PO SCH (10:00)
[2016-09-04] MEDS: Ibuprofen 800 MG Tab PO PRN (10:00)
[2016-09-04] MEDS: Potassium Chloride 10 MEQ Tab.ER PO SCH (10:00)
[2016-09-04] MEDS: busPIRone 15 MG Tab PO SCH (10:01)
[2016-09-04] MEDS: Gabapentin 300 MG Cap PO SCH ×2 (10:02→14:33)
[2016-09-04] MEDS: LISDEXAMFETAMINE DIMESYLATE 60 MG PO SCH (10:03)
[2016-09-04] MEDS: SITAGLIPTIN 100 MG PO SCH (10:04)
[2016-09-04] MEDS: Insulin Detemir 100 Units/ML 3 ML Pen SUBCUT SCH (10:05)
[2016-09-04 11:26] VITALS: BP 120/71
[2016-09-04] MEDS: Insulin Aspart 100 Units/ML 3 ML Pen SUBCUT SCH ×2 (16:42→16:43)
== END 2016-09-04 15:00 | disposition home or self-care (01) | DRG 159 ==
LOC: DL.ED 19:45 → EEVIPCON 21:28 → DL.MS 21:28
PROVIDERS: ADMIT Internal Medicine; ATTEND Internal Medicine
DX: K04.7 Periapical abscess without sinus (principal); E11.9 Type 2 diabetes mellitus without complications; J45.909 Unspecified asthma, uncomplicated; E87.6 Hypokalemia; Z79.84 Long term (current) use of oral hypoglycemic drugs; Z79.4 Long term (current) use of insulin; I10 Essential (primary) hypertension; E78.5 Hyperlipidemia, unspecified; K21.9 Gastro-esophageal reflux disease without esophagitis; M19.90 Unspecified osteoarthritis, unspecified site; F17.210 Nicotine dependence, cigarettes, uncomplicated; G89.29 Other chronic pain; Z86.59 Personal history of other mental and behavioral disorders
CPT/HCPCS: 36415; 80048; 80053; 82962; 83605; 85025; 87040; 99284; A9270-GY; J1644; J1815-GY; J2270; J3480; J7050; S0077

== ENCOUNTER 2016-09-06 15:59 | Emergency (ER) | payer MEDICAID ==
[2016-09-06 17:08] VITALS: BP 107/55
[2016-09-06] MEDS ORDERED: Ondansetron 4 MG Tab.DIS PO ONE ×2 (19:44→21:35)
[2016-09-06 20:21] LABS: CHLORIDE,CL 101 mmol/L (101-111); SODIUM,NA 136 mmol/L (135-145)
--- NOTE | 2016-09-06 21:29 | EDM.PDOC ---
ED HPI GENERAL MEDICAL PROBLEM - General Chief Complaint: ENT Problem Stated Complaint: [id number] SEPSIS INFECTION Time Seen by Provider: 09/06/16 19:20 Source of Information: Reports: Patient History Limitations: Reports: No Limitations - History of Present Illness INITIAL COMMENTS - FREE TEXT/NARRATIVE: c/o not feeling better, Was admitted earlier this week for Dental infection, Was seen at [place] by dentist and awaiting appointment with oral surgeon in [place] to hve left molar removed and needs to see dentist for work on front teeth also. Notes nausea and dry heaves. Feels some shills No known fever. Blood sugars in 80's. Not eating much due to nausea. Tooth/Teeth Pain Score (Numeric/FACES): 10 - Related Data Allergies Allergy/AdvReac Type Severity Reaction Status Date / Time amoxicillin [Amoxicillin] Allergy Difficulty Verified 09/01/16 19:52 Swallowing cephalexin [Cephalexin] Allergy Cannot Verified 09/01/16 19:52 Remember Cephalosporins Allergy Difficulty Verified 09/01/16 19:52 Swallowing cyclobenzaprine Allergy Other Verified 09/01/16 19:52 [Cyclobenzaprine] lactose Allergy Diarrhea Verified 09/01/16 19:52 latex Allergy Itching Verified 09/01/16 19:52 Penicillins Allergy Anaphylactic Verified 09/01/16 19:52 Shock fish Allergy Rash Uncoded 07/15/16 21:49 Home Meds: Home Meds Albuterol Sulfate [Albuterol Sulfate HFA] 8.5 gm IH ASDIRECTED PRN 04/11/13 [ History] Gabapentin [Neurontin] 900 mg PO TID 04/11/13 [History] Lisinopril 10 mg PO DAILY 04/11/13 [History] Pantoprazole [ProTONIX] 40 mg PO DAILY 04/11/13 [History] Hydrochlorothiazide 50 mg PO DAILY 09/23/15 [History] Lisdexamfetamine Dimesylate [Vyvanse] 60 mg PO DAILY 09/23/15 [History] SitaGLIPtin [Januvia] 100 mg PO DAILY 09/23/15 [History] metFORMIN HCl [Metformin HCl ER] 1,000 mg PO BID 09/23/15 [History] Insulin Glarg,Human.Rec.Analog [Lantus] 8 units SQ DAILY 04/19/16 [History] atorvaSTATin [Lipitor] 20 mg PO BEDTIME 07/20/16 [History] busPIRone [Buspar] 10 mg PO BID 08/11/16 [History] Potassium Chloride 10 meq PO DAILY 09/02/16 [History] Clindamycin Phosphate [Cleocin] 600 mg IV Q8HR 10 Days 09/04/16 [Rx] Ibuprofen 800 mg PO TID PRN 5 Days 09/04/16 [Rx] oxyCODONE 5 mg PO Q6H PRN #5 tablet 09/04/16 [Rx] Past Medical History HEENT History: Reports: Impaired vision, Other (see below) Other HEENT History: ears drain all the time, wears glasses Cardiovascular History: Reports: Heart murmur, High cholesterol, Hypertension Respiratory History: Reports: Asthma, Bronchitis, recurrent Gastrointestinal History: Reports: GERD Genitourinary History: Reports: Renal calculus [employer] History: Reports: Musculoskeletal History: Reports: Arthritis, Back pain, chronic, Other (see below) Other Musculoskeletal History: bulging disx on L5 Neurological History: Reports: Concussion, Head trauma, Neuropathy, diabetic Other Neuro History: body shuts down from stress Psychiatric History: Reports: ADD, ADHD, Addiction, Aggressive/hostile behaviors , Anxiety, Depression, Emotional problems, Panic attack, Psych Hospitalization(s ), PTSD Endocrine/Metabolic History: Reports: Diabetes, type II, Obesity/BMI 30+ Hematologic History: Reports: None Immunologic History: Reports: None Other Immunologic History: not sure if has been exposed to HIV Oncologic (Cancer) History: Reports: None Dermatologic History: Reports: Other (see below) Other Dermatologic History: has bumps in the groin area and a rash on body - Infectious Disease History Infectious Disease History: Reports: Chicken pox, Hepatitis C Other Infectious Disease History: has active Hep C - Past Surgical History Head Surgeries/Procedures: Reports: None HEENT Surgical History: Reports: Oral surgery, Other (see below) Other HEENT Surgeries/Procedures: maxifacial surgery from broken jaw GI Surgical History: Reports: Cholecystectomy, Other (see below) Other GI Surgeries/Procedures: liver surgery, bleeding ulcers Female Surgical History: Reports: D&C, Tubal ligation Social & Family History - Family History Family Medical History: Noncontributory Cardiac: Reports: High cholesterol, Hypertension, NM Other Cardiac Family History: Grandmother on mom's side. Both sides have hypertension and high cholesterol Endocrine/Metabolic: Reports: Diabetes, type II Other Endocrine/Metabolic Family History: Both sides of family. - Tobacco Use Smoking Status *Q: Current Every Day Smoker Years of Tobacco use: 25 Packs/Tins Daily: 0.3 Used Tobacco, but Quit: No Month Tobacco Last Used: january 2014 Second Hand Smoke Exposure: Yes - Caffeine Use Caffeine Use: Reports: Coffee, Soda - Alcohol Use Days Per Week of Alcohol Use: 0 Number of Drinks Per Day: 10 Total Drinks Per Week: 0 - Recreational Drug Use Recreational Drug Use: No Drug Use in Last 12 Months: No Recreational Drug Type: Reports: Barbituates, Marijuana/Hashish, Methamphetamine Other Recreational Drug Type: hx of IV drug use, sober since 2013 Recreational Drug Use Frequency: Daily Recreational Drug Last Use: Saturday - Living Situation & Occupation Living situation: Reports: other (in halfway) ED ROS ENT - Review of Systems Review Of Systems: See Below Constitutional: Reports: Chills HEENT: Reports: Other (dental abscess, mild discomfort with eating left molar) Respiratory: Reports: No Symptoms Cardiovascular: Reports: No Symptoms Endocrine: Reports: No Symptoms GI/Abdominal: Reports: Decreased Appetite, Nausea Skin: Reports: No Symptoms Neurological: Reports: No Symptoms Psychiatric: Reports: Anxiety ED EXAM, ENT - Physical Exam Exam: See Below Exam Limited By: No Limitations General Appearance: Alert, Anxious, Mild Distress Eye Exam: Bilateral Eye: PERRL Ears: Normal External Exam, Normal TMs Nose: Normal Inspection Mouth/Throat: Dental Pain (per report, not noted with exam). No: Tonsillar Erythema Neck: Normal Inspection. No: Lymphadenopathy (L), Lymphadenopathy (R) Respiratory/Chest: No Respiratory Distress, Lungs Clear, Normal Breath Sounds Cardiovascular: Normal Peripheral Pulses, Regular Rate, Rhythm GI/Abdominal: Normal Bowel Sounds Back: Normal Inspection Extremities: Normal Inspection Neurological: Alert, Normal Cognition Psychiatric: Anxious Skin: Warm, Dry, Intact, Normal Color Course - Vital Signs Last Recorded V/S: Last Vital Signs Temp 98.2 F 09/06/16 17:07 Pulse 100 09/06/16 18:47 Resp 22 H 09/06/16 17:07 BP 107/55 L 09/06/16 17:07 Pulse Ox 100 09/06/16 17:07 - Orders/Labs/Meds Labs: Laboratory Tests 09/06/16 09/06/16 09/06/16 Range/Units 19:52 19:52 19:52 WBC 15.4 H (5.0-10.0) 10^3/uL RBC 5.05 (4.2-5.4) 10^6/uL Hgb 13.6 (12.0-16.0) g/dL Hct 41.0 (37.0-47.0) % MCV 81.2 (80-100) fL MCH 26.9 L (27.0-34.0) pg MCHC 33.2 (33.0-35.0) g/dL Plt Count 390 (150-450) 10^3/uL Neut % (Auto) 78.4 H (42.2-75.2) % Lymph % (Auto) 13.3 L (20.5-50.1) % [place] % (Auto) 7.3 (2-8) % Eos % (Auto) 0.9 L (1.0-3.0) % Baso % (Auto) 0.1 (0.0-1.0) % Sodium 136 (135-145) mmol/L Potassium 4.2 (3.6-5.0) mmol/L Chloride 101 (101-111) mmol/L Carbon Dioxide 27.0 (21.0-31.0) mmol/L Anion Gap 12.2 BUN 19 H (7-18) mg/dL Creatinine 0.8 (0.6-1.3) mg/dL Est Cr Clr Drug Dosing TNP Estimated GFR (MDRD) > 60 BUN/Creatinine Ratio 23.75 Glucose 104 (74-105) mg/dL Calcium 9.7 (8.4-10.2) mg/dl Total Bilirubin 0.8 (0.2-1.0) mg/dL AST 33 (10-42) IU/L ALT 45 (10-60) IU/L Alkaline Phosphatase 95 (42-121) IU/L C-Reactive Protein < 0.5 (0.0-1.3) mg/dL Total Protein 7.9 (6.7-8.2) g/dl Albumin 4.4 (3.2-5.5) g/dl Globulin 3.5 Albumin/Globulin Ratio 1.26 Amylase 53 (28-100) U/L Lipase 31 (22-51) U/L Meds: Medications Discontinued Medications Generic Name Dose Route Start Last Admin Trade Name Rebecac PRN Reason Stop Dose Admin Ondansetron HCl 4 mg 09/06/16 19:44 09/06/16 19:51 Zofran Odt PO 09/06/16 19:45 4 mg ONETIME ONE Administration Ondansetron HCl Confirm 09/06/16 21:35 09/06/16 21:38 Zofran Odt Administered 09/06/16 21:36 Not Given Dose 4 mg .ROUTE .STK-MED ONE - Re-Assessments/Exams Free Text/Narrative Re-Assessment/Exam: 09/07/16 03:52 Anxious on admit to ED, calmer after informed nausea likely Side effect from antibiotic and may improve. Resting after zofran with light dozing and no further dry heaves. WBC slight elevation, afebrile. Does not appear septic and overall appearance is better than her norm for ED visits. Departure - Departure Time of Disposition: 21:25 Disposition: Home, Self-Care 01 Condition: good Clinical Impression: Abscess, dental, Nausea - Discharge Information Instructions: Dental Abscess, [id number] Referrals: Conchita Guevara PA-C [Primary Care Provider] - Forms: ED Department Discharge Additional Instructions: continue clindamycin as ordered zofran ODT 4mg one every 6 hours as needed for nausea #10 clinic follow up on saturday Flagyl 500mg one three times daily for one week
[2016-09-06] MEDS ORDERED: Ondansetron 4 MG Tab.DIS ONE (21:35)
== END 2016-09-06 21:42 | disposition home or self-care (01) ==
LOC: DL.ED 15:59
DX: K04.7 Periapical abscess without sinus (principal); R11.0 Nausea; R01.1 Cardiac murmur, unspecified; E78.00 Pure hypercholesterolemia, unspecified; I10 Essential (primary) hypertension; J45.909 Unspecified asthma, uncomplicated; K21.9 Gastro-esophageal reflux disease without esophagitis; M19.90 Unspecified osteoarthritis, unspecified site; E11.40 Type 2 diabetes mellitus with diabetic neuropathy, unspecified; E66.9 Obesity, unspecified; F41.9 Anxiety disorder, unspecified; F32.9 Major depressive disorder, single episode, unspecified; F17.210 Nicotine dependence, cigarettes, uncomplicated; Z88.0 Allergy status to penicillin; Z88.1 Allergy status to other antibiotic agents; Z91.040 Latex allergy status; Z88.8 Allergy status to other drugs, medicaments and biological substances; Z91.013 Allergy to seafood; Z79.4 Long term (current) use of insulin; Z79.899 Other long term (current) drug therapy; Z98.890 Other specified postprocedural states; Z90.49 Acquired absence of other specified parts of digestive tract; Z98.51 Tubal ligation status
CPT/HCPCS: 36415; 80053; 82150; 83690; 85025; 86140; 99283; A9270

== ENCOUNTER 2016-11-03 19:02 | Emergency (ER) | payer MEDICAID ==
[2016-11-03 19:20] VITALS: BP 118/71
[2016-11-03 19:55] LABS: CHLORIDE,CL 103 mmol/L (101-111); SODIUM,NA 143 mmol/L (135-145)
[2016-11-03] MEDS ORDERED: Potassium Chloride 10 MEQ Tab.ER PO ONE (20:11)
--- NOTE | 2016-11-03 20:15 | EDM.PDOC ---
ED HPI GENERAL MEDICAL PROBLEM - General Chief Complaint: General Stated Complaint: SUGAR LEVELS ARE OFF, [id number] Time Seen by Provider: 11/03/16 19:30 Source of Information: Reports: Patient History Limitations: Reports: No Limitations - History of Present Illness INITIAL COMMENTS - FREE TEXT/NARRATIVE: ED with concern blood sugars are off, Unable to check as glucometer not working. Notes feeling shaky. Ate prior to coming to ED - Related Data Allergies Allergy/AdvReac Type Severity Reaction Status Date / Time amoxicillin [Amoxicillin] Allergy Difficulty Verified 11/03/16 19:12 Swallowing cephalexin [Cephalexin] Allergy Cannot Verified 11/03/16 19:12 Remember Cephalosporins Allergy Difficulty Verified 11/03/16 19:12 Swallowing cyclobenzaprine Allergy Other Verified 11/03/16 19:12 [Cyclobenzaprine] lactose Allergy Diarrhea Verified 11/03/16 19:12 latex Allergy Itching Verified 11/03/16 19:12 Penicillins Allergy Anaphylactic Verified 11/03/16 19:12 Shock fish Allergy Rash Uncoded 11/03/16 19:12 Home Meds: Home Meds Albuterol Sulfate [Albuterol Sulfate HFA] 8.5 gm IH ASDIRECTED PRN 04/11/13 [ History] Gabapentin [Neurontin] 900 mg PO TID 04/11/13 [History] Lisinopril 10 mg PO DAILY 04/11/13 [History] Pantoprazole [ProTONIX] 40 mg PO DAILY 04/11/13 [History] Hydrochlorothiazide 50 mg PO DAILY 09/23/15 [History] Lisdexamfetamine Dimesylate [Vyvanse] 60 mg PO DAILY 09/23/15 [History] SitaGLIPtin [Januvia] 100 mg PO DAILY 09/23/15 [History] metFORMIN HCl [Metformin HCl ER] 1,000 mg PO BID 09/23/15 [History] Insulin Glarg,Human.Rec.Analog [Lantus] 8 units SQ DAILY 04/19/16 [History] atorvaSTATin [Lipitor] 20 mg PO BEDTIME 07/20/16 [History] busPIRone [Buspar] 10 mg PO BID 08/11/16 [History] Potassium Chloride 20 meq PO DAILY 09/02/16 [History] Ibuprofen 800 mg PO TID PRN 5 Days 09/04/16 [Rx] Past Medical History HEENT History: Reports: Impaired Vision, Other (See Below) Other HEENT History: ears drain all the time, wears glasses Cardiovascular History: Reports: Heart Murmur, High Cholesterol, Hypertension Respiratory History: Reports: Asthma, Bronchitis, Recurrent Gastrointestinal History: Reports: GERD Genitourinary History: Reports: Renal Calculus 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: Musculoskeletal History: Reports: Arthritis, Back Pain, Chronic, Other (See Below) Other Musculoskeletal History: bulging disx on L5 Neurological History: Reports: Concussion, Head Trauma, Neuropathy, Diabetic Other Neuro History: body shuts down from stress Psychiatric History: Reports: ADD, ADHD, Addiction, Aggressive/Hostile Behaviors , Anxiety, Depression, Emotional Problems, Panic Attack, Psych Hospitalization(s ), PTSD Endocrine/Metabolic History: Reports: Diabetes, Type II, Obesity/BMI 30+ Hematologic History: Reports: None Immunologic History: Reports: None Other Immunologic History: not sure if has been exposed to HIV Oncologic (Cancer) History: Reports: None Dermatologic History: Reports: Other (See Below) Other Dermatologic History: has bumps in the groin area and a rash on body - Infectious Disease History Infectious Disease History: Reports: Chicken Pox, Hepatitis C Other Infectious Disease History: has active Hep C - Past Surgical History Head Surgeries/Procedures: Reports: None HEENT Surgical History: Reports: Oral Surgery, Other (See Below) GI Surgical History: Reports: Cholecystectomy, Other (See Below) Female Surgical History: Reports: D&C, Tubal Ligation Social & Family History - Family History Family Medical History: Noncontributory Cardiac: Reports: High Cholesterol, Hypertension, CT Other Cardiac Family History: Grandmother on mom's side. Both sides have hypertension and high cholesterol Endocrine/Metabolic: Reports: Diabetes, type II Other Endocrine/Metabolic Family History: Both sides of family. - Tobacco Use Smoking Status *Q: Current Every Day Smoker Years of Tobacco use: 25 Packs/Tins Daily: 0.3 Used Tobacco, but Quit: No Month Tobacco Last Used: january 2014 Second Hand Smoke Exposure: No - Caffeine Use Caffeine Use: Reports: Coffee - Alcohol Use Days Per Week of Alcohol Use: 0 Number of Drinks Per Day: 10 Total Drinks Per Week: 0 Date of Last Drink: 11/02/16 - Recreational Drug Use Recreational Drug Use: Yes Drug Use in Last 12 Months: Yes Recreational Drug Type: Reports: Barbituates, Marijuana/Hashish, Methamphetamine Other Recreational Drug Type: hx of IV drug use, sober since 2013 Recreational Drug Use Frequency: Socially Recreational Drug Last Use: Saturday - Living Situation & Occupation Living situation: Reports: Other ED ROS GENERAL - Review of Systems Review Of Systems: See Below Constitutional: Reports: No Symptoms HEENT: Reports: No Symptoms Respiratory: Reports: No Symptoms Cardiovascular: Reports: No Symptoms Endocrine: Reports: Other (shaky) GI/Abdominal: Reports: No Symptoms : Reports: No Symptoms Musculoskeletal: Reports: No Symptoms Skin: Reports: No Symptoms Neurological: Reports: No Symptoms ED EXAM, GENERAL - Physical Exam Exam: See Below Exam Limited By: No Limitations General Appearance: Alert, Anxious Eye Exam: Bilateral Eye: EOMI Ears: Normal External Exam Nose: Normal Inspection Throat/Mouth: Normal Inspection Head: Atraumatic, Normocephalic Neck: Normal Inspection Respiratory/Chest: No Respiratory Distress, Lungs Clear, Normal Breath Sounds Cardiovascular: Normal Peripheral Pulses, Regular Rate, Rhythm GI/Abdominal: Normal Bowel Sounds, Soft Back Exam: Normal Inspection Extremities: Normal Inspection Neurological: Alert, Oriented Psychiatric: Anxious Skin Exam: Warm, Dry, Intact, Normal Color, Other (multiple ick lesions to arms and lower legs) Course - Vital Signs Last Recorded V/S: Last Vital Signs Temp 96.6 F 11/03/16 19:19 Pulse 106 H 11/03/16 19:19 Resp 16 11/03/16 19:19 BP 118/71 11/03/16 19:19 Pulse Ox 99 11/03/16 19:19 - Orders/Labs/Meds Labs: Laboratory Tests 11/03/16 11/03/16 11/03/16 Range/Units 19:10 19:28 19:28 WBC 14.5 H (5.0-10.0) 10^3/uL RBC 4.67 (4.2-5.4) 10^6/uL Hgb 12.8 (12.0-16.0) g/dL Hct 39.6 (37.0-47.0) % MCV 84.8 (80-100) fL MCH 27.4 (27.0-34.0) pg MCHC 32.3 L (33.0-35.0) g/dL Plt Count 378 (150-450) 10^3/uL Neut % (Auto) 79.1 H (42.2-75.2) % Lymph % (Auto) 14.1 L (20.5-50.1) % [place] % (Auto) 5.4 (2-8) % Eos % (Auto) 1.2 (1.0-3.0) % Baso % (Auto) 0.2 (0.0-1.0) % Add Manual Diff Yes Neutrophils % (Manual) 83 % Lymphocytes % (Manual) 13 % Monocytes % (Manual) 2 % Eosinophils % (Manual) 2 % Sodium 143 (135-145) mmol/L Potassium 3.2 L (3.6-5.0) mmol/L Chloride 103 (101-111) mmol/L Carbon Dioxide 27.0 (21.0-31.0) mmol/L Anion Gap 16.2 BUN 14 (7-18) mg/dL Creatinine 0.7 (0.6-1.3) mg/dL Est Cr Clr Drug Dosing 103.01 mL/min Estimated GFR (MDRD) > 60 BUN/Creatinine Ratio 20.00 Glucose 127 H (74-105) mg/dL POC Glucose 132 H (70-105) mg/dl Calcium 8.9 (8.4-10.2) mg/dl Total Bilirubin 0.4 (0.2-1.0) mg/dL AST 33 (10-42) IU/L ALT 33 (10-60) IU/L Alkaline Phosphatase 100 (42-121) IU/L Total Protein 6.9 (6.7-8.2) g/dl Albumin 4.0 (3.2-5.5) g/dl Globulin 2.9 Albumin/Globulin Ratio 1.38 Amylase 57 (28-100) U/L Lipase 45 (22-51) U/L Urine Color (YELLOW) Urine Appearance (CLEAR) Urine pH (5.0-9.0) Ur Specific [place] (1.005-1.030) Urine Protein (NEGATIVE) Urine Glucose (UA) (NEGATIVE) Urine Ketones (NEGATIVE) Urine Occult Blood (NEGATIVE) Urine Nitrite (NEGATIVE) Urine Bilirubin (NEGATIVE) Urine Urobilinogen (0.2-1.0) mg/dL Ur Leukocyte Esterase (NEGATIVE) Urine RBC /HPF Urine WBC (0-5/HPF) /HPF Ur Epithelial Cells /HPF Urine Bacteria (0-FEW/HPF) /HPF Urine Opiates Screen (NEGATIVE) Ur Oxycodone Screen (NEGATIVE) Urine Methadone Screen (NEGATIVE) Ur Barbiturates Screen (NEGATIVE) U Tricyclic Antidepress (NEGATIVE) Ur Phencyclidine Scrn (NEGATIVE) Ur Amphetamine Screen (NEGATIVE) U Methamphetamines Scrn (NEGATIVE) Urine MDMA Screen (NEGATIVE) U Benzodiazepines Scrn (NEGATIVE) Urine Cocaine Screen (NEGATIVE) U Marijuana (THC) Screen (NEGATIVE) 11/03/16 11/03/16 Range/Units 19:42 19:42 WBC (5.0-10.0) 10^3/uL RBC (4.2-5.4) 10^6/uL Hgb (12.0-16.0) g/dL Hct (37.0-47.0) % MCV (80-100) fL MCH (27.0-34.0) pg MCHC (33.0-35.0) g/dL Plt Count (150-450) 10^3/uL Neut % (Auto) (42.2-75.2) % Lymph % (Auto) (20.5-50.1) % [place] % (Auto) (2-8) % Eos % (Auto) (1.0-3.0) % Baso % (Auto) (0.0-1.0) % Add Manual Diff Neutrophils % (Manual) % Lymphocytes % (Manual) % Monocytes % (Manual) % Eosinophils % (Manual) % Sodium (135-145) mmol/L Potassium (3.6-5.0) mmol/L Chloride (101-111) mmol/L Carbon Dioxide (21.0-31.0) mmol/L Anion Gap BUN (7-18) mg/dL Creatinine (0.6-1.3) mg/dL Est Cr Clr Drug Dosing mL/min Estimated GFR (MDRD) BUN/Creatinine Ratio Glucose (74-105) mg/dL POC Glucose (70-105) mg/dl Calcium (8.4-10.2) mg/dl Total Bilirubin (0.2-1.0) mg/dL AST (10-42) IU/L ALT (10-60) IU/L Alkaline Phosphatase (42-121) IU/L Total Protein (6.7-8.2) g/dl Albumin (3.2-5.5) g/dl Globulin Albumin/Globulin Ratio Amylase (28-100) U/L Lipase (22-51) U/L Urine Color Yellow (YELLOW) Urine Appearance Slightly cloudy (CLEAR) Urine pH 7.5 (5.0-9.0) Ur Specific [place] 1.015 (1.005-1.030) Urine Protein Negative (NEGATIVE) Urine Glucose (UA) Negative (NEGATIVE) Urine Ketones Negative (NEGATIVE) Urine Occult Blood Negative (NEGATIVE) Urine Nitrite Negative (NEGATIVE) Urine Bilirubin Negative (NEGATIVE) Urine Urobilinogen 0.2 (0.2-1.0) mg/dL Ur Leukocyte Esterase Negative (NEGATIVE) Urine RBC 0-5 /HPF Urine WBC 0-5 (0-5/HPF) /HPF Ur Epithelial Cells Moderate H /HPF Urine Bacteria Moderate H (0-FEW/HPF) /HPF Urine Opiates Screen Negative (NEGATIVE) Ur Oxycodone Screen Negative (NEGATIVE) Urine Methadone Screen Negative (NEGATIVE) Ur Barbiturates Screen Negative (NEGATIVE) U Tricyclic Antidepress Negative (NEGATIVE) Ur Phencyclidine Scrn Negative (NEGATIVE) Ur Amphetamine Screen Positive H (NEGATIVE) U Methamphetamines Scrn Positive H (NEGATIVE) Urine MDMA Screen Negative (NEGATIVE) U Benzodiazepines Scrn Negative (NEGATIVE) Urine Cocaine Screen Negative (NEGATIVE) U Marijuana (THC) Screen Negative (NEGATIVE) Meds: Medications Discontinued Medications Generic Name Dose Route Start Last Admin Trade Name Rebecca PRN Reason Stop Dose Admin Potassium Chloride 20 meq 11/03/16 20:11 11/03/16 20:14 Klor-Con 10 PO 11/03/16 20:12 20 meq ONETIME ONE Administration Departure - Departure Time of Disposition: 20:09 Disposition: Home, Self-Care 01 Condition: Good Clinical Impression: Hypokalemia Diabetes mellitus Qualifiers: Diabetes mellitus type: type 2 Diabetes mellitus complication status: without complication 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
== END 2016-11-03 20:19 | disposition home or self-care (01) ==
LOC: DL.ED 19:02
DX: E11.9 Type 2 diabetes mellitus without complications (principal); E87.6 Hypokalemia; J45.909 Unspecified asthma, uncomplicated; K21.9 Gastro-esophageal reflux disease without esophagitis; I10 Essential (primary) hypertension; E78.00 Pure hypercholesterolemia, unspecified; E66.9 Obesity, unspecified; F17.210 Nicotine dependence, cigarettes, uncomplicated; Z88.1 Allergy status to other antibiotic agents; Z88.8 Allergy status to other drugs, medicaments and biological substances; Z88.0 Allergy status to penicillin; Z91.018 Allergy to other foods; Z91.013 Allergy to seafood; Z91.040 Latex allergy status; Z79.899 Other long term (current) drug therapy
CPT/HCPCS: 36415; 80053; 80305; 81001; 82150; 82962; 83690; 85025; 99283; A9270

== ENCOUNTER 2017-02-19 22:30 | Emergency (ER) | payer MEDICAID ==
[2017-02-19 22:36] VITALS: BP 110/84
[2017-02-19] MEDS ORDERED: Ketorolac 30 MG/ML SDV IM ONE (23:11)
[2017-02-19] MEDS ORDERED: Acetaminophen/HYDROcodone 325-10 MG Tab PO ONE (23:12)
--- NOTE | 2017-02-20 04:03 | ER ---
SUBJECTIVE: The patient is a 36-year-old female, who has chronic back pain. She has exacerbations of her low back pain frequently. She states she has a bulging disc at L3, L4, L5, and she has had steroid injections into her back and has seen Neurosurgery in the past, but it has been a long time. She just saw her PCP today, but no referral. She states she would like to see a neurosurgeon again. She states what exacerbated her back this evening was she reached down in the refrigerator to lower shelf to mushroom picker some milk and get a slice of cheese out of a drawer within the refrigerator, and she could not stand back up and felt stuck. No falls or trauma. No bowel or bladder changes with the exception that she states sometimes she gets numbness down her left leg, and she feels her pelvis gets numb and several times she has had some urinary incontinence because she felt numb. She has not relayed this to her neurologist or neurosurgeon, and it has been quite some time that she has seen one, per her history. She denies any fevers, chills, chest pain, shortness of breath, any vomiting. She does have some nausea with the pain when it gets at its worse. No bites, stings, or rash. No other new changes. She has been out of this for some time. PAST MEDICAL HISTORY: Chronic back pain. She has impaired vision. She states her ears drain all the time. She wears glasses. She has had oral surgery. She has had a heart murmur, hyperlipidemia, hypertension, asthma, bronchitis which is recurrent, chronic tobacco abuse, COPD, GERD, cholecystectomy, renal calculus, D and C, tubal ligation, multiple pregnancies, arthritis. She states she has a bulging disc at L3, L4, L5. She has diabetes. She has a BMI greater than 30 and technically obese. Concussion, head trauma, neuropathy, ADHD. Addictive, aggressive, and hostile behaviors. Anxiety, depression, panic attack, psych hospitalizations, PTSD per her history. Chickenpox, hepatitis C, unsure if she has ever had HIV. CURRENT MEDICATIONS: Include: 1. Albuterol MDI as directed. 2. Neurontin 900 mg p.o. t.i.d. 3. Lisinopril 10 mg p.o. daily. 4. Protonix 40 mg p.o. daily. 5. Hydrochlorothiazide 50 mg p.o. daily. 6. Vyvanse 60 mg p.o. daily. 7. Januvia 100 mg p.o. daily. 8. Metformin 1000 mg p.o. b.i.d. 9. Lantus 8 units subcutaneous daily. 10.Lipitor 20 mg p.o. at bedtime. 11.BuSpar 50 mg p.o. b.i.d. 12.KCl 20 mEq p.o. daily. 13.Ibuprofen 800 mg t.i.d. p.r.n. ALLERGIES: She states allergic to amoxicillin, causes difficulty swallowing; cephalexin, she does not recall; and cephalosporins, she does not recall, possibly difficulty swallowing. She is allergic to cyclobenzaprine, unsure why. Lactose causes diarrhea. Latex causes itching. Fish causes a rash. SOCIAL HISTORY: She has been smoking cigarettes for many years. She does use alcohol but not heavy for last year. She has used other drugs but not over the last year. REVIEW OF SYSTEMS: Denies . Denies assault or trauma. Denies any falls. She does have occasional urinary incontinence if her back goes out. She has numbness of her pelvis and left leg if her back goes out. She states sometimes she has to mushroom picker her left leg because it feels like it is numb and will not work. She has chronic back pain with frequent exacerbations such as today when bending over to mushroom picker milk out of refrigerator. No fevers, chills. She does have some nausea when the pain gets worse. No vomiting. No melena or BRBPR. No bowel incontinence. No chest pain, shortness of breath. No other new issues. She does take her medicines, tolerates them well. OBJECTIVE: Vital Signs: Blood pressure is 110/84, respirations 20, heart rate is 95. She is afebrile. General: She is very warm and appears older than stated age. She is talkative, anxious. HEENT: Normocephalic and atraumatic. Skin: Multiple skin discoloration and changes that are chronic. Abdomen: Soft. She is wearing a back support belt, which she states helps. She has nonspecific back tenderness. She appears atraumatic. EMERGENCY ROOM COURSE: She was given an injection of Toradol and also a tablet of 325/10 mg hydrocodone. She was not given muscle relaxants since she is allergic to muscle relaxants. ASSESSMENT: Exacerbation of chronic low back pain with the patient stating she has established degenerative disc disease at L3, L4, L5 with previous steroid injections by Neurosurgery. PLAN: Recommend see PCP and get a referral to Neurosurgery. Discuss with them her left leg and pelvis numbness as well as her urinary incontinence when her back pain gets bad. Fall precautions. Keep active. No heavy lifting. Heat, ice, Bengay. Continue with medicines. Stay with family. [facility] /[id number]
== END 2017-02-19 23:40 | disposition home or self-care (01) ==
LOC: DL.ED 22:30
DX: G89.29 Other chronic pain (principal); M54.5 Low back pain; Z79.899 Other long term (current) drug therapy; Z88.1 Allergy status to other antibiotic agents
CPT/HCPCS: 96372; 99283; A9270; J1885

== ENCOUNTER 2017-02-20 19:43 | Emergency (ER) | payer MEDICAID ==
[2017-02-20 19:50] VITALS: BP 123/74
[2017-02-20] MEDS ORDERED: Ketorolac 30 MG/ML SDV IM ONE (20:15)
[2017-02-20] MEDS ORDERED: Acetaminophen/HYDROcodone 325-10 MG Tab PO ONE (20:16)
--- NOTE | 2017-02-21 02:11 | ER ---
SUBJECTIVE: The patient is a 36-year-old female with chronic low back pain. She does get exacerbations from time to time. She was into the ER for the same reason last night when she was reaching down into refrigerator to grab some milk and some cheese from a shelf and she exacerbated her pain. She states she has a chronically bulging disk on L3, L4, and L5. She sometimes has left leg numbness, and she has to physically pick her leg up to use it. She sometimes has some urinary incontinence as well. Last night, I advised her strongly to go back to clinic and get a referral to Neurosurgery. She did go back to clinic today. They rescheduled an MRI since the last MRI was over a year ago. They also told her they will get her a Neurosurgery referral. She comes in today for same complaint and just continues to have some low back pain. No falls or trauma. No symptoms of urinary tract infection. No bowel changes. No melena or hematochezia. No abdominal pain. No nausea or vomiting, although sometimes she does get nausea if the pain is really severe. No fevers. No recent illness. Otherwise is eating, is active, and getting around. She is taking her medicines and tolerates them well. PAST MEDICAL HISTORY: Significant for hypertension; GERD; asthma; chronic back pain with reported bulging disk of L3, L4, and L5, previous surgery, she previously received back injections with steroids; hyperlipidemia; IDDM; previous history of polysubstance abuse; arthritis; renal calculus; tubal ligation; pregnancies; D and C; cholecystectomy; previous bronchitis; previous head trauma; concussion; ADHD; anxiety; and panic attacks. CURRENT MEDICATIONS: Include: 1. Albuterol inhalers as directed. 2. Neurontin 900 mg p.o. t.i.d. 3. Lisinopril 10 mg p.o. daily. 4. Protonix 40 mg p.o. daily. 5. HCTZ 50 mg p.o. daily. 6. Vyvanse 60 mg p.o. daily. 7. Januvia 100 mg p.o. daily. 8. Metformin 1000 mg p.o. b.i.d. 9. Lantus 8 units subcutaneous daily. 10.Atorvastatin 20 mg p.o. at bedtime. 11.BuSpar mg p.o. b.i.d. 12.KCl 20 mEq p.o. daily. 13.Ibuprofen p.r.n. ALLERGIES: States she is allergic to amoxicillin, causes difficulty swallowing; cephalosporins and cephalexin, does not recall, possibly difficulty swallowing; cyclobenzaprine, she states she woke up with nightmares; lactose, causes diarrhea; latex, causes itching; penicillins, cause anaphylactic shock; and fish, causes rash. SOCIAL HISTORY: History of polysubstance abuse, nothing in the last year. She does continue to smoke cigarettes. REVIEW OF SYSTEMS: No fevers, chills, headache, syncope, or near syncope. Chronic back pain, she gets exacerbations as noted in HPI. No nausea or vomiting unless she has severe back pain, in which she gets some nausea. No bleeding. No bowel or bladder changes except occasional urinary incontinence if the back pain exacerbates. She does get left leg numbness with exacerbation of the low back pain as well. No bites, stings, or rashes. OBJECTIVE: Vital Signs: Stable. She is afebrile. General: She is very talkative. Appears in much less pain tonight than last night. HEENT: Normocephalic and atraumatic. Neurologic: A and O x3. She ambulates in. She is sitting on the edge of the bed. Moving around fairly well. Musculoskeletal: She does have nonspecific back tenderness across the low back. It is atraumatic. No signs of acute injuries. She is able to stand and use her legs. EMERGENCY ROOM COURSE: She is given injection of the Toradol. She is given a tablet of hydrocodone. She is advised that she should be seen in clinic and get her medications there, and since this is a chronic problem, she gets exacerbate, hence she should be seen in clinic as it is a nonemergent issue. Continue with strengthening the back, also strengthening the abdominal muscles. Proper lifting, stay with family, fall precautions, and continue with medications. Stay in a frequent contact with clinic to make sure her MRI and referral to Neurosurgery will occur. ASSESSMENT: Exacerbation of chronic low back pain. [facility] /[id number]
== END 2017-02-20 20:50 | disposition home or self-care (01) ==
LOC: DL.ED 19:43
DX: G89.29 Other chronic pain (principal); M54.5 Low back pain; I10 Essential (primary) hypertension; K21.9 Gastro-esophageal reflux disease without esophagitis; E11.9 Type 2 diabetes mellitus without complications; Z79.4 Long term (current) use of insulin; Z88.1 Allergy status to other antibiotic agents; Z91.040 Latex allergy status
CPT/HCPCS: 96372; 99283; A9270; J1885

== ENCOUNTER 2017-06-11 01:57 | Emergency (ER) | payer MEDICAID ==
[2017-06-11 03:02] LABS: CHLORIDE,CL 102 mmol/L (101-111); SODIUM,NA 139 mmol/L (135-145)
[2017-06-11] MEDS ORDERED: Ibuprofen 600 MG Tab PO ONE (03:22)
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
== END 2017-06-11 03:38 | disposition home or self-care (01) ==
LOC: DL.ED 01:57
DX: R56.9 Unspecified convulsions (principal); F17.210 Nicotine dependence, cigarettes, uncomplicated; I10 Essential (primary) hypertension; E78.00 Pure hypercholesterolemia, unspecified; J45.909 Unspecified asthma, uncomplicated; K21.9 Gastro-esophageal reflux disease without esophagitis; E11.9 Type 2 diabetes mellitus without complications; Z79.4 Long term (current) use of insulin; Z79.899 Other long term (current) drug therapy; Z88.0 Allergy status to penicillin; Z88.1 Allergy status to other antibiotic agents; Z88.8 Allergy status to other drugs, medicaments and biological substances; Z91.040 Latex allergy status; Z91.013 Allergy to seafood
CPT/HCPCS: 36415; 80053; 80305; 81001; 85027; 99284; A9270

== ENCOUNTER 2018-08-05 17:47 | Emergency (ER) | payer MEDICARE, MEDICAID ==
[2018-08-05 17:55] VITALS: BP 146/76
[2018-08-05] MEDS ORDERED: Sodium Chloride 0.9% 10 ML Syringe FLUSH PRN (18:22)
--- NOTE | 2018-08-05 18:30 | EDM.PDOC ---
<Reji Olivera - Last Filed: 08/05/18 18:48> ED HPI GENERAL MEDICAL PROBLEM - General Chief Complaint: Genitourinary Problem Stated Complaint: KIDNEYS HURT Time Seen by Provider: 08/05/18 18:20 Source of Information: Reports: Patient History Limitations: Reports: No Limitations - History of Present Illness INITIAL COMMENTS - FREE TEXT/NARRATIVE: Patient comes emergency department today with complaints of bilateral flank pain. Over the past 2 weeks she has had bilateral flank pain that has been about the same. In November she had "kidney sepsis" and was taking care of at [facility] in [place]. Over the past 2 days she has noticed quite a bit of swelling in her hands and she is urinating very little. She urinates only once a day. She has no shortness of breath or difficulty breathing. No cough or congestion. No fever no chills. No hematuria dysuria or urinary frequency. No black or tarry stools. No diarrhea. No abdominal pain. Lower Back Pain Score (Numeric/FACES): 7 - Related Data Allergies Allergy/AdvReac Type Severity Reaction Status Date / Time amoxicillin [Amoxicillin] Allergy Difficulty Verified 08/05/18 18:03 Swallowing cephalexin [Cephalexin] Allergy Cannot Verified 08/05/18 18:03 Remember Cephalosporins Allergy Difficulty Verified 08/05/18 18:03 Swallowing cyclobenzaprine Allergy Other Verified 08/05/18 18:03 [Cyclobenzaprine] lactose Allergy Diarrhea Verified 08/05/18 18:03 latex Allergy Itching Verified 08/05/18 18:03 Penicillins Allergy Anaphylactic Verified 08/05/18 18:03 Shock fish Allergy Rash Uncoded 08/05/18 18:03 Home Meds: Home Meds Albuterol Sulfate [Albuterol Sulfate HFA] 8.5 gm IH ASDIRECTED PRN 04/11/13 [ History] Gabapentin [Neurontin] 900 mg PO TID 04/11/13 [History] Lisinopril 10 mg PO DAILY 04/11/13 [History] Pantoprazole [ProTONIX Granules] 40 mg PO DAILY 04/11/13 [History] Hydrochlorothiazide 50 mg PO DAILY 09/23/15 [History] Insulin Glarg,Human.Rec.Analog [Lantus] 20 units SQ DAILY 04/19/16 [History] atorvaSTATin [Lipitor] 20 mg PO BEDTIME 07/20/16 [History] busPIRone [Buspar] 15 mg PO BID 08/11/16 [History] Potassium Chloride 20 meq PO DAILY 09/02/16 [History] Ibuprofen 800 mg PO TID PRN 5 Days 09/04/16 [Rx] Insulin Aspart [NovoLOG] 8 unit SQ TID 08/05/18 [History] Magnesium 30 mg PO DAILY 08/05/18 [History] atoMOXetine HCl [Strattera] 50 mg PO DAILY 08/05/18 [History] Past Medical History HEENT History: Reports: Impaired Vision, Other (See Below) Other HEENT History: ears drain all the time, wears glasses Cardiovascular History: Reports: Heart Murmur, High Cholesterol, Hypertension Respiratory History: Reports: Asthma, Bronchitis, Recurrent Gastrointestinal History: Reports: GERD Genitourinary History: Reports: Renal Calculus 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: Musculoskeletal History: Reports: Arthritis, Back Pain, Chronic, Other (See Below) Other Musculoskeletal History: bulging disx on L5 Neurological History: Reports: Concussion, Head Trauma, Migraines, Neuropathy, Diabetic, Other (See Below) Other Neuro History: body shuts down from stress Psychiatric History: Reports: ADD, ADHD, Addiction, Aggressive/Hostile Behaviors , Anxiety, Depression, Emotional Problems, Panic Attack, Psych Hospitalization(s ), PTSD Endocrine/Metabolic History: Reports: Diabetes, Type II, Obesity/BMI 30+ Hematologic History: Reports: None Immunologic History: Reports: None Other Immunologic History: not sure if has been exposed to HIV Oncologic (Cancer) History: Reports: None Dermatologic History: Reports: Other (See Below) Other Dermatologic History: has bumps in the groin area and a rash on body - Infectious Disease History Infectious Disease History: Reports: Chicken Pox, Hepatitis C Other Infectious Disease History: has active Hep C - Past Surgical History Head Surgeries/Procedures: Reports: None HEENT Surgical History: Reports: Oral Surgery, Other (See Below) GI Surgical History: Reports: Cholecystectomy, Other (See Below) Female Surgical History: Reports: D&C, Tubal Ligation Social & Family History - Family History Family Medical History: Noncontributory Cardiac: Reports: High Cholesterol, Hypertension, [place] Other Cardiac Family History: Grandmother on mom's side. Both sides have hypertension and high cholesterol Endocrine/Metabolic: Reports: Diabetes, type II Other Endocrine/Metabolic Family History: Both sides of family. - Tobacco Use Smoking Status *Q: Current Every Day Smoker Years of Tobacco use: 28 Packs/Tins Daily: 1 - Caffeine Use Caffeine Use: Reports: Coffee - Recreational Drug Use Recreational Drug Use: Yes Drug Use in Last 12 Months: Yes Recreational Drug Type: Reports: Methamphetamine Recreational Drug Use Frequency: Daily - Living Situation & Occupation Living situation: Reports: Other ED ROS GENERAL - Review of Systems Review Of Systems: ROS reveals no pertinent complaints other than HPI. ED EXAM, RENAL/ - Physical Exam Exam: See Below Exam Limited By: No Limitations General Appearance: Alert, WD/WN, No Apparent Distress Ears: Normal External Exam Nose: Normal Inspection, Normal Mucosa Throat/Mouth: Normal Inspection, Normal Lips, Normal Oropharynx Head: Atraumatic, Normocephalic Neck: Normal Inspection, Supple Respiratory/Chest: No Respiratory Distress, Lungs Clear, Normal Breath Sounds, No Accessory Muscle Use, Chest Non-Tender Cardiovascular: Normal Peripheral Pulses, Regular Rate, Rhythm GI/Abdominal: Normal Bowel Sounds, Soft, Non-Tender Back Exam: Normal Inspection, Full Range of Motion, CVA Tenderness (L), CVA Tenderness (R) Extremities: Normal Inspection, Normal Range of Motion, No Pedal Edema, Normal Capillary Refill. No: Joint Swelling, Leg Pain Neurological: Alert, Oriented, Normal Cognition, Normal Gait, No Motor/Sensory Deficits Psychiatric: Normal Affect, Normal Mood Skin Exam: Warm, Dry, Intact, Normal Color, No Rash Course - Vital Signs Last Recorded V/S: Last Vital Signs Temp 97.3 F 08/05/18 17:51 Pulse 84 08/05/18 17:51 Resp 18 08/05/18 17:51 BP 146/76 H 08/05/18 17:51 Pulse Ox 98 08/05/18 17:51 - Orders/Labs/Meds Orders: Active Orders 24 hr Category Date Time Status Peripheral IV Care [RC] . DIRECTED Care 08/05/18 18:25 Active Sodium Chloride 0.9% [Saline Flush] Med 08/05/18 18:22 Active 10 ml FLUSH ASDIRECTED PRN Peripheral IV Insertion Adult [OM.PC] Stat Oth 08/05/18 18:23 Ordered Medication Orders Sodium Chloride (Saline Flush) 10 ml FLUSH ASDIRECTED PRN PRN Reason: Keep Vein Open Labs: Laboratory Tests 08/05/18 08/05/18 08/05/18 Range/Units 17:55 17:55 18:00 WBC 10.7 H (5.0-10.0) 10^3/uL RBC 4.58 (4.2-5.4) 10^6/uL Hgb 10.7 L (12.0-16.0) g/dL Hct 34.9 L (37.0-47.0) % MCV 76.2 L D (80-100) fL MCH 23.4 L (27.0-34.0) pg MCHC 30.7 L (33.0-35.0) g/dL Plt Count 445 D (150-450) 10^3/uL Neut % (Auto) 64.4 (42.2-75.2) % Lymph % (Auto) 21.0 (20.5-50.1) % Lar[place] % (Auto) 8.8 H (2-8) % Eos % (Auto) 5.4 H (1.0-3.0) % Baso % (Auto) 0.4 (0.0-1.0) % Sodium (135-145) mmol/L Potassium (3.6-5.0) mmol/L Chloride (101-111) mmol/L Carbon Dioxide (21.0-31.0) mmol/L Anion Gap BUN (7-18) mg/dL Creatinine (0.6-1.3) mg/dL Est Cr Clr Drug Dosing mL/min Estimated GFR (MDRD) BUN/Creatinine Ratio Glucose (74-105) mg/dL Calcium (8.4-10.2) mg/dl Total Bilirubin (0.2-1.0) mg/dL AST (10-42) IU/L ALT (10-60) IU/L Alkaline Phosphatase (42-121) IU/L B-Natriuretic Peptide (0-100) pg/ml Total Protein (6.7-8.2) g/dl Albumin (3.2-5.5) g/dl Globulin Albumin/Globulin Ratio Urine Color Yellow (YELLOW) Urine Appearance Clear (CLEAR) Urine pH 6.0 (5.0-9.0) Ur Specific [place] 1.025 (1.005-1.030) Urine Protein Negative (NEGATIVE) Urine Glucose (UA) Negative (NEGATIVE) Urine Ketones Negative (NEGATIVE) Urine Occult Blood Negative (NEGATIVE) Urine Nitrite Negative (NEGATIVE) Urine Bilirubin Negative (NEGATIVE) Urine Urobilinogen 0.2 (0.2-1.0) mg/dL Ur Leukocyte Esterase Negative (NEGATIVE) Urine Opiates Screen Negative (NEGATIVE) Ur Oxycodone Screen Negative (NEGATIVE) Urine Methadone Screen Negative (NEGATIVE) Ur Barbiturates Screen Negative (NEGATIVE) U Tricyclic Antidepress Negative (NEGATIVE) Ur Phencyclidine Scrn Negative (NEGATIVE) Ur Amphetamine Screen Positive H (NEGATIVE) U Methamphetamines Scrn Positive H (NEGATIVE) Urine MDMA Screen Negative (NEGATIVE) U Benzodiazepines Scrn Negative (NEGATIVE) Urine Cocaine Screen Negative (NEGATIVE) U Marijuana (THC) Screen Negative (NEGATIVE) 08/05/18 Range/Units 18:00 WBC (5.0-10.0) 10^3/uL RBC (4.2-5.4) 10^6/uL Hgb (12.0-16.0) g/dL Hct (37.0-47.0) % MCV (80-100) fL MCH (27.0-34.0) pg MCHC (33.0-35.0) g/dL Plt Count (150-450) 10^3/uL Neut % (Auto) (42.2-75.2) % Lymph % (Auto) (20.5-50.1) % Larue % (Auto) (2-8) % Eos % (Auto) (1.0-3.0) % Baso % (Auto) (0.0-1.0) % Sodium 137 (135-145) mmol/L Potassium 3.5 L (3.6-5.0) mmol/L Chloride 106 (101-111) mmol/L Carbon Dioxide 22.0 (21.0-31.0) mmol/L Anion Gap 12.5 BUN 11 (7-18) mg/dL Creatinine 0.5 L (0.6-1.3) mg/dL Est Cr Clr Drug Dosing 141.41 mL/min Estimated GFR (MDRD) > 60 BUN/Creatinine Ratio 22.00 Glucose 158 H (74-105) mg/dL Calcium 8.6 (8.4-10.2) mg/dl Total Bilirubin 0.6 (0.2-1.0) mg/dL AST 29 (10-42) IU/L ALT 27 (10-60) IU/L Alkaline Phosphatase 130 H (42-121) IU/L B-Natriuretic Peptide 51 (0-100) pg/ml Total Protein 6.3 L (6.7-8.2) g/dl Albumin 3.1 L (3.2-5.5) g/dl Globulin 3.2 Albumin/Globulin Ratio 0.97 Urine Color (YELLOW) Urine Appearance (CLEAR) Urine pH (5.0-9.0) Ur Specific [place] (1.005-1.030) Urine Protein (NEGATIVE) Urine Glucose (UA) (NEGATIVE) Urine Ketones (NEGATIVE) Urine Occult Blood (NEGATIVE) Urine Nitrite (NEGATIVE) Urine Bilirubin (NEGATIVE) Urine Urobilinogen (0.2-1.0) mg/dL Ur Leukocyte Esterase (NEGATIVE) Urine Opiates Screen (NEGATIVE) Ur Oxycodone Screen (NEGATIVE) Urine Methadone Screen (NEGATIVE) Ur Barbiturates Screen (NEGATIVE) U Tricyclic Antidepress (NEGATIVE) Ur Phencyclidine Scrn (NEGATIVE) Ur Amphetamine Screen (NEGATIVE) U Methamphetamines Scrn (NEGATIVE) Urine MDMA Screen (NEGATIVE) U Benzodiazepines Scrn (NEGATIVE) Urine Cocaine Screen (NEGATIVE) U Marijuana (THC) Screen (NEGATIVE) Meds: Medications Generic Name Dose Route Start Last Admin Trade Name Freq PRN Reason Stop Dose Admin Sodium Chloride 10 ml 08/05/18 18:22 Saline Flush FLUSH ASDIRECTED PRN Keep Vein Open - Re-Assessments/Exams Free Text/Narrative Re-Assessment/Exam: 08/05/18 18:49 Care to Sally Mcghee DNP/NI. Departure - Departure Disposition: Home, Self-Care 01 Clinical Impression: Physically well but worried - Discharge Information Instructions: Edema, [id number] Forms: ED Department Discharge Additional Instructions: Drink plenty of water Follow up with your primary care facility <Sally Bro - Last Filed: 08/05/18 19:10> Departure - Departure Time of Disposition: 19:09 Condition: Fair - Discharge Information *PRESCRIPTION DRUG MONITORING PROGRAM REVIEWED*: No *COPY OF PRESCRIPTION DRUG MONITORING REPORT IN PATIENT ANIVAL: No
[2018-08-05 18:42] LABS: ANION GAP 12.5; CHLORIDE,CL 106 mmol/L (101-111); SODIUM,NA 137 mmol/L (135-145)
== END 2018-08-05 19:24 | disposition home or self-care (01) ==
LOC: DL.ED 17:47
DX: R10.9 Unspecified abdominal pain (principal); Z71.1 Person with feared health complaint in whom no diagnosis is made; J45.909 Unspecified asthma, uncomplicated; E11.9 Type 2 diabetes mellitus without complications; I10 Essential (primary) hypertension; K21.9 Gastro-esophageal reflux disease without esophagitis; F17.210 Nicotine dependence, cigarettes, uncomplicated; Z88.1 Allergy status to other antibiotic agents; Z88.8 Allergy status to other drugs, medicaments and biological substances; Z88.0 Allergy status to penicillin; Z79.899 Other long term (current) drug therapy; Z79.84 Long term (current) use of oral hypoglycemic drugs
CPT/HCPCS: 36415; 80053; 80305-QW; 81003; 83880; 85025; 99284

== ENCOUNTER 2018-08-27 20:10 | Emergency (ER) | payer MEDICARE, MEDICAID ==
--- NOTE | 2018-08-27 20:30 | EDM.PDOC ---
ED HPI GENERAL MEDICAL PROBLEM - General Chief Complaint: Diabetic Complaint Stated Complaint: SUGAR HIGH Time Seen by Provider: 08/27/18 20:20 Source of Information: Reports: Patient, RN, RN Notes Reviewed History Limitations: Reports: No Limitations - History of Present Illness INITIAL COMMENTS - FREE TEXT/NARRATIVE: Pt to ER with c/o high blood sugars for the past several days. She states she has had to take an extra 100 units of insulin since Saturday. She states her BS have been running 250-300. She denies recent illness, cough, chills, N/V/D. She states her skin feels hot to her, but is unsure of fevers. She states she had a tooth removed a week or longer ago and was not put on antibiotics so is concerned there may be infection. Onset: Gradual - Related Data Allergies Allergy/AdvReac Type Severity Reaction Status Date / Time amoxicillin [Amoxicillin] Allergy Difficulty Verified 08/27/18 20:15 Swallowing cephalexin [Cephalexin] Allergy Cannot Verified 08/27/18 20:15 Remember Cephalosporins Allergy Difficulty Verified 08/27/18 20:15 Swallowing cyclobenzaprine Allergy Other Verified 08/27/18 20:15 [Cyclobenzaprine] lactose Allergy Diarrhea Verified 08/27/18 20:15 latex Allergy Itching Verified 08/27/18 20:15 Penicillins Allergy Anaphylactic Verified 08/27/18 20:15 Shock fish Allergy Rash Uncoded 08/27/18 20:15 Home Meds: Home Meds Albuterol Sulfate [Albuterol Sulfate HFA] 8.5 gm IH ASDIRECTED PRN 04/11/13 [ History] Gabapentin [Neurontin] 900 mg PO TID 04/11/13 [History] Lisinopril 10 mg PO DAILY 04/11/13 [History] Pantoprazole [ProTONIX Granules] 40 mg PO DAILY 04/11/13 [History] Hydrochlorothiazide 50 mg PO DAILY 09/23/15 [History] Insulin Glarg,Human.Rec.Analog [Lantus] 20 units SQ DAILY 04/19/16 [History] atorvaSTATin [Lipitor] 20 mg PO BEDTIME 07/20/16 [History] busPIRone [Buspar] 15 mg PO BID 08/11/16 [History] Potassium Chloride 20 meq PO DAILY 09/02/16 [History] Ibuprofen 800 mg PO TID PRN 5 Days 09/04/16 [Rx] Insulin Aspart [NovoLOG] 8 unit SQ TID 08/05/18 [History] Magnesium 30 mg PO DAILY 08/05/18 [History] atoMOXetine HCl [Strattera] 50 mg PO DAILY 08/05/18 [History] Past Medical History HEENT History: Reports: Impaired Vision, Other (See Below) Other HEENT History: ears drain all the time, wears glasses Cardiovascular History: Reports: Heart Murmur, High Cholesterol, Hypertension Respiratory History: Reports: Asthma, Bronchitis, Recurrent Gastrointestinal History: Reports: GERD Genitourinary History: Reports: Renal Calculus 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: Musculoskeletal History: Reports: Arthritis, Back Pain, Chronic, Other (See Below) Other Musculoskeletal History: bulging disx on L5 Neurological History: Reports: Concussion, Head Trauma, Migraines, Neuropathy, Diabetic, Other (See Below) Other Neuro History: body shuts down from stress Psychiatric History: Reports: ADD, ADHD, Addiction, Aggressive/Hostile Behaviors , Anxiety, Depression, Emotional Problems, Panic Attack, Psych Hospitalization(s ), PTSD Endocrine/Metabolic History: Reports: Diabetes, Type II, Obesity/BMI 30+ Hematologic History: Reports: None Immunologic History: Reports: None Other Immunologic History: not sure if has been exposed to HIV Oncologic (Cancer) History: Reports: None Dermatologic History: Reports: Other (See Below) Other Dermatologic History: has bumps in the groin area and a rash on body - Infectious Disease History Infectious Disease History: Reports: Chicken Pox, Hepatitis C Other Infectious Disease History: has active Hep C - Past Surgical History Head Surgeries/Procedures: Reports: None HEENT Surgical History: Reports: Oral Surgery, Other (See Below) GI Surgical History: Reports: Cholecystectomy, Other (See Below) Female Surgical History: Reports: D&C, Tubal Ligation Social & Family History - Family History Family Medical History: Noncontributory Cardiac: Reports: High Cholesterol, Hypertension, [place] Other Cardiac Family History: Grandmother on mom's side. Both sides have hypertension and high cholesterol Endocrine/Metabolic: Reports: Diabetes, type II Other Endocrine/Metabolic Family History: Both sides of family. - Tobacco Use Smoking Status *Q: Light Tobacco Smoker Years of Tobacco use: 20 Packs/Tins Daily: 0.3 - Caffeine Use Caffeine Use: Reports: Coffee - Recreational Drug Use Recreational Drug Use: No - Living Situation & Occupation Living situation: Reports: Other ED ROS GENERAL - Review of Systems Review Of Systems: ROS reveals no pertinent complaints other than HPI. ED EXAM GENERAL NO PERIP PULSE - Physical Exam Exam: See Below Exam Limited By: No Limitations General Appearance: Alert, WD/WN, No Apparent Distress Eye Exam: Bilateral Eye: EOMI, Normal Inspection Ears: Normal External Exam, Hearing Grossly Normal Nose: Normal Inspection Throat/Mouth: Normal Inspection, Normal Voice, No Airway Compromise Head: Atraumatic, Normocephalic Neck: Normal Inspection, Supple, Non-Tender, Full Range of Motion Respiratory/Chest: No Respiratory Distress, Lungs Clear, Normal Breath Sounds, No Accessory Muscle Use, Chest Non-Tender Cardiovascular: Normal Peripheral Pulses, Regular Rate, Rhythm, No Edema, No Gallop, No JVD, No Murmur, No Rub GI/Abdominal: Normal Bowel Sounds, Soft, Non-Tender, No Organomegaly, No Distention, No Abnormal Bruit, No Mass (Female) Exam: Deferred Rectal (Female) Exam: Deferred Back Exam: Normal Inspection, Full Range of Motion, NT Extremities: Normal Inspection, Normal Range of Motion, Non-Tender, Normal Capillary Refill, No Pedal Edema Neurological: Alert, Oriented, CN II-XII Intact, Normal Cognition, Normal Gait, Normal Reflexes, No Motor/Sensory Deficits Psychiatric: Normal Affect, Normal Mood Skin Exam: Warm, Dry, Intact, Normal Color, No Rash Lymphatic: No Adenopathy Course - Vital Signs Last Recorded V/S: Last Vital Signs Temp 97.4 F 08/27/18 20:15 Pulse 81 08/27/18 21:19 Resp 18 08/27/18 21:19 BP 129/57 L 08/27/18 21:19 Pulse Ox 99 08/27/18 21:19 - Orders/Labs/Meds Orders: Active Orders 24 hr Category Date Time Status Peripheral IV Care [RC] . DIRECTED Care 08/27/18 20:26 Active CULTURE BLOOD [BC] Stat Lab 08/27/18 20:30 Received Sodium Chloride 0.9% [Saline Flush] Med 08/27/18 20:26 Active 10 ml FLUSH ASDIRECTED PRN Peripheral IV Insertion Adult [OM.PC] Stat Oth 08/27/18 20:26 Ordered Medication Orders Sodium Chloride (Saline Flush) 10 ml FLUSH ASDIRECTED PRN PRN Reason: Keep Vein Open Last Admin: 08/27/18 21:06 Dose: 10 ml Labs: Laboratory Tests 08/27/18 08/27/18 08/27/18 Range/Units 20:14 20:30 20:30 WBC 14.8 H (5.0-10.0) 10^3/uL RBC 4.63 (4.2-5.4) 10^6/uL Hgb 10.6 L (12.0-16.0) g/dL Hct 34.0 L (37.0-47.0) % MCV 73.4 L (80-100) fL MCH 22.9 L (27.0-34.0) pg MCHC 31.2 L (33.0-35.0) g/dL Plt Count 465 H (150-450) 10^3/uL Neut % (Auto) 73.7 (42.2-75.2) % Lymph % (Auto) 14.9 L (20.5-50.1) % [place] % (Auto) 7.8 (2-8) % Eos % (Auto) 3.5 H (1.0-3.0) % Baso % (Auto) 0.1 (0.0-1.0) % Add Manual Diff Yes Neutrophils % (Manual) 76 H (42-75) % Lymphocytes % (Manual) 18 L (20-50) % Monocytes % (Manual) 1 L (2-8) % Eosinophils % (Manual) 5 H (1-3) % Sodium 135 (135-145) mmol/L Potassium 3.4 L (3.6-5.0) mmol/L Chloride 101 (101-111) mmol/L Carbon Dioxide 23.0 (21.0-31.0) mmol/L Anion Gap 14.4 BUN 19 H (7-18) mg/dL Creatinine 0.6 (0.6-1.3) mg/dL Est Cr Clr Drug Dosing 117.84 mL/min Estimated GFR (MDRD) > 60 BUN/Creatinine Ratio 31.66 Glucose 266 H (74-105) mg/dL POC Glucose 249 H (70-105) mg/dl Lactic Acid (0.5-2.2) mmol/L Calcium 8.6 (8.4-10.2) mg/dl Total Bilirubin 0.6 (0.2-1.0) mg/dL AST 32 (10-42) IU/L ALT 30 (10-60) IU/L Alkaline Phosphatase 153 H (42-121) IU/L Total Protein 6.6 L (6.7-8.2) g/dl Albumin 3.4 (3.2-5.5) g/dl Globulin 3.2 Albumin/Globulin Ratio 1.06 Urine Color (YELLOW) Urine Appearance (CLEAR) Urine pH (5.0-9.0) Ur Specific [place] (1.005-1.030) Urine Protein (NEGATIVE) Urine Glucose (UA) (NEGATIVE) Urine Ketones (NEGATIVE) Urine Occult Blood (NEGATIVE) Urine Nitrite (NEGATIVE) Urine Bilirubin (NEGATIVE) Urine Urobilinogen (0.2-1.0) mg/dL Ur Leukocyte Esterase (NEGATIVE) Urine HCG, Qual Urine Opiates Screen (NEGATIVE) Ur Oxycodone Screen (NEGATIVE) Urine Methadone Screen (NEGATIVE) Ur Barbiturates Screen (NEGATIVE) U Tricyclic Antidepress (NEGATIVE) Ur Phencyclidine Scrn (NEGATIVE) Ur Amphetamine Screen (NEGATIVE) U Methamphetamines Scrn (NEGATIVE) Urine MDMA Screen (NEGATIVE) U Benzodiazepines Scrn (NEGATIVE) Urine Cocaine Screen (NEGATIVE) U Marijuana (THC) Screen (NEGATIVE) Ketones Negative 08/27/18 08/27/18 08/27/18 Range/Units 20:30 20:33 20:33 WBC (5.0-10.0) 10^3/uL RBC (4.2-5.4) 10^6/uL Hgb (12.0-16.0) g/dL Hct (37.0-47.0) % MCV (80-100) fL MCH (27.0-34.0) pg MCHC (33.0-35.0) g/dL Plt Count (150-450) 10^3/uL Neut % (Auto) (42.2-75.2) % Lymph % (Auto) (20.5-50.1) % [place] % (Auto) (2-8) % Eos % (Auto) (1.0-3.0) % Baso % (Auto) (0.0-1.0) % Add Manual Diff Neutrophils % (Manual) (42-75) % Lymphocytes % (Manual) (20-50) % Monocytes % (Manual) (2-8) % Eosinophils % (Manual) (1-3) % Sodium (135-145) mmol/L Potassium (3.6-5.0) mmol/L Chloride (101-111) mmol/L Carbon Dioxide (21.0-31.0) mmol/L Anion Gap BUN (7-18) mg/dL Creatinine (0.6-1.3) mg/dL Est Cr Clr Drug Dosing mL/min Estimated GFR (MDRD) BUN/Creatinine Ratio Glucose (74-105) mg/dL POC Glucose (70-105) mg/dl Lactic Acid 2.0 (0.5-2.2) mmol/L Calcium (8.4-10.2) mg/dl Total Bilirubin (0.2-1.0) mg/dL AST (10-42) IU/L ALT (10-60) IU/L Alkaline Phosphatase (42-121) IU/L Total Protein (6.7-8.2) g/dl Albumin (3.2-5.5) g/dl Globulin Albumin/Globulin Ratio Urine Color Yellow (YELLOW) Urine Appearance Slightly cloudy (CLEAR) Urine pH 7.0 (5.0-9.0) Ur Specific [place] 1.020 (1.005-1.030) Urine Protein Negative (NEGATIVE) Urine Glucose (UA) 500 H (NEGATIVE) Urine Ketones Trace H (NEGATIVE) Urine Occult Blood Negative (NEGATIVE) Urine Nitrite Negative (NEGATIVE) Urine Bilirubin Negative (NEGATIVE) Urine Urobilinogen 0.2 (0.2-1.0) mg/dL Ur Leukocyte Esterase Negative (NEGATIVE) Urine HCG, Qual Negative Urine Opiates Screen (NEGATIVE) Ur Oxycodone Screen (NEGATIVE) Urine Methadone Screen (NEGATIVE) Ur Barbiturates Screen (NEGATIVE) U Tricyclic Antidepress (NEGATIVE) Ur Phencyclidine Scrn (NEGATIVE) Ur Amphetamine Screen (NEGATIVE) U Methamphetamines Scrn (NEGATIVE) Urine MDMA Screen (NEGATIVE) U Benzodiazepines Scrn (NEGATIVE) Urine Cocaine Screen (NEGATIVE) U Marijuana (THC) Screen (NEGATIVE) Ketones 08/27/18 Range/Units 20:33 WBC (5.0-10.0) 10^3/uL RBC (4.2-5.4) 10^6/uL Hgb (12.0-16.0) g/dL Hct (37.0-47.0) % MCV (80-100) fL MCH (27.0-34.0) pg MCHC (33.0-35.0) g/dL Plt Count (150-450) 10^3/uL Neut % (Auto) (42.2-75.2) % Lymph % (Auto) (20.5-50.1) % [place] % (Auto) (2-8) % Eos % (Auto) (1.0-3.0) % Baso % (Auto) (0.0-1.0) % Add Manual Diff Neutrophils % (Manual) (42-75) % Lymphocytes % (Manual) (20-50) % Monocytes % (Manual) (2-8) % Eosinophils % (Manual) (1-3) % Sodium (135-145) mmol/L Potassium (3.6-5.0) mmol/L Chloride (101-111) mmol/L Carbon Dioxide (21.0-31.0) mmol/L Anion Gap BUN (7-18) mg/dL Creatinine (0.6-1.3) mg/dL Est Cr Clr Drug Dosing mL/min Estimated GFR (MDRD) BUN/Creatinine Ratio Glucose (74-105) mg/dL POC Glucose (70-105) mg/dl Lactic Acid (0.5-2.2) mmol/L Calcium (8.4-10.2) mg/dl Total Bilirubin (0.2-1.0) mg/dL AST (10-42) IU/L ALT (10-60) IU/L Alkaline Phosphatase (42-121) IU/L Total Protein (6.7-8.2) g/dl Albumin (3.2-5.5) g/dl Globulin Albumin/Globulin Ratio Urine Color (YELLOW) Urine Appearance (CLEAR) Urine pH (5.0-9.0) Ur Specific [place] (1.005-1.030) Urine Protein (NEGATIVE) Urine Glucose (UA) (NEGATIVE) Urine Ketones (NEGATIVE) Urine Occult Blood (NEGATIVE) Urine Nitrite (NEGATIVE) Urine Bilirubin (NEGATIVE) Urine Urobilinogen (0.2-1.0) mg/dL Ur Leukocyte Esterase (NEGATIVE) Urine HCG, Qual Urine Opiates Screen Negative (NEGATIVE) Ur Oxycodone Screen Negative (NEGATIVE) Urine Methadone Screen Negative (NEGATIVE) Ur Barbiturates Screen Negative (NEGATIVE) U Tricyclic Antidepress Negative (NEGATIVE) Ur Phencyclidine Scrn Negative (NEGATIVE) Ur Amphetamine Screen Negative (NEGATIVE) U Methamphetamines Scrn Negative (NEGATIVE) Urine MDMA Screen Negative (NEGATIVE) U Benzodiazepines Scrn Negative (NEGATIVE) Urine Cocaine Screen Negative (NEGATIVE) U Marijuana (THC) Screen Negative (NEGATIVE) Ketones Meds: Medications Generic Name Dose Route Start Last Admin Trade Name Freq PRN Reason Stop Dose Admin Sodium Chloride 10 ml 08/27/18 20:26 08/27/18 21:06 Saline Flush FLUSH 10 ml ASDIRECTED PRN Administration Keep Vein Open Discontinued Medications Generic Name Dose Route Start Last Admin Trade Name Freq PRN Reason Stop Dose Admin Clindamycin HCl 600 mg 08/27/18 21:30 Cleocin PO 08/27/18 21:31 ONETIME ONE Ondansetron HCl 4 mg 08/27/18 21:06 08/27/18 21:10 Zofran IV 08/27/18 21:07 4 mg ONETIME ONE Administration Departure - Departure Time of Disposition: 21:32 Disposition: Home, Self-Care 01 Condition: Fair Clinical Impression: Dental infection - Discharge Information *PRESCRIPTION DRUG MONITORING PROGRAM REVIEWED*: No *COPY OF PRESCRIPTION DRUG MONITORING REPORT IN PATIENT ANIVAL: No Instructions: Dental Extraction, [id number], Dental Extraction, Care After, [id number], Dental Abscess, [id number] Forms: ED Department Discharge Additional Instructions: RX: Clindamycin, Zofran Swish with mouthwash 2-3 times a day Drink plenty of water Monitor blood sugars Follow up with your primary care facility regarding high blood sugars - My Orders Last 24 Hours: My Active Orders 08/27/18 20:26 Peripheral IV Care [RC] . DIRECTED Sodium Chloride 0.9% [Saline Flush] 10 ml FLUSH ASDIRECTED PRN Peripheral IV Insertion Adult [OM.PC] Stat 08/27/18 20:30 CULTURE BLOOD [BC] Stat - Assessment/Plan Last 24 Hours: My Active Orders 08/27/18 20:26 Peripheral IV Care [RC] . DIRECTED Sodium Chloride 0.9% [Saline Flush] 10 ml FLUSH ASDIRECTED PRN Peripheral IV Insertion Adult [OM.PC] Stat 08/27/18 20:30 CULTURE BLOOD [BC] Stat
[2018-08-27 20:57] LABS: ANION GAP 14.4; CHLORIDE,CL 101 mmol/L (101-111); SODIUM,NA 135 mmol/L (135-145)
[2018-08-27] MEDS: Sodium Chloride 0.9% 10 ML Syringe FLUSH PRN (21:06)
[2018-08-27] MEDS: Ondansetron 4 MG/2 ML SDV IV ONE (21:10)
[2018-08-27 21:20] VITALS: BP 129/57
[2018-08-27] MEDS: Clindamycin HCl 150 MG Cap PO ONE (21:35)
[2018-08-27] MEDS: Ondansetron 4 MG Tab.DIS ONE (21:43)
== END 2018-08-27 21:40 | disposition home or self-care (01) ==
LOC: DL.ED 20:10
DX: K04.7 Periapical abscess without sinus (principal); F17.210 Nicotine dependence, cigarettes, uncomplicated; J45.909 Unspecified asthma, uncomplicated; I10 Essential (primary) hypertension; Z79.899 Other long term (current) drug therapy; Z79.4 Long term (current) use of insulin; Z98.890 Other specified postprocedural states
CPT/HCPCS: 36415; 80053; 80305; 81003; 81025; 82009; 82962; 83605; 85025; 87040; 96374; 99283; A9270; J2405

== ENCOUNTER 2019-01-22 17:50 | Emergency (ER) | payer MEDICARE, MEDICAID ==
[2019-01-22 18:03] VITALS: BP 98/50; PULSE 76
--- NOTE | 2019-01-22 18:59 | EDM.PDOC ---
ED HPI GENERAL MEDICAL PROBLEM - General Chief Complaint: General Stated Complaint: ABSCESS AROUND INSULIN Time Seen by Provider: 01/22/19 18:56 Source of Information: Reports: Patient History Limitations: Reports: No Limitations - History of Present Illness INITIAL COMMENTS - FREE TEXT/NARRATIVE: onset of red lump on insulin injection site which never happen before. it usually turn blue but not red. worried infection. Abdomen Pain Score (Numeric/FACES): 3 - Related Data Allergies Allergy/AdvReac Type Severity Reaction Status Date / Time amoxicillin [Amoxicillin] Allergy Difficulty Verified 01/22/19 18:03 Swallowing cephalexin [Cephalexin] Allergy Cannot Verified 01/22/19 18:03 Remember Cephalosporins Allergy Difficulty Verified 01/22/19 18:03 Swallowing cyclobenzaprine Allergy Other Verified 01/22/19 18:03 [Cyclobenzaprine] lactose Allergy Diarrhea Verified 01/22/19 18:03 latex Allergy Itching Verified 01/22/19 18:03 meloxicam [From Mobic] Allergy Swelling Verified 01/22/19 18:04 Penicillins Allergy Anaphylactic Verified 01/22/19 18:03 Shock fish Allergy Rash Uncoded 01/22/19 18:03 Home Meds: Home Meds Albuterol Sulfate [Albuterol Sulfate HFA] 8.5 gm IH ASDIRECTED PRN 04/11/13 [ History] Gabapentin [Neurontin] 900 mg PO TID 04/11/13 [History] Lisinopril 20 mg PO DAILY 04/11/13 [History] Pantoprazole [ProTONIX Granules] 40 mg PO DAILY 04/11/13 [History] Hydrochlorothiazide 25 mg PO DAILY 09/23/15 [History] Insulin Glarg,Human.Rec.Analog [Lantus] 20 units SQ DAILY 04/19/16 [History] atorvaSTATin [Lipitor] 20 mg PO BEDTIME 07/20/16 [History] Ibuprofen 800 mg PO TID PRN 5 Days 09/04/16 [Rx] Insulin Aspart [NovoLOG] 8 unit SQ TID 08/05/18 [History] Magnesium 30 mg PO DAILY 08/05/18 [History] Past Medical History HEENT History: Reports: Impaired Vision, Other (See Below) Other HEENT History: ears drain all the time, wears glasses Cardiovascular History: Reports: Heart Murmur, High Cholesterol, Hypertension Respiratory History: Reports: Asthma, Bronchitis, Recurrent Gastrointestinal History: Reports: GERD Genitourinary History: Reports: Renal Calculus 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: Musculoskeletal History: Reports: Arthritis, Back Pain, Chronic, Other (See Below) Other Musculoskeletal History: bulging disx on L5 Neurological History: Reports: Concussion, Head Trauma, Migraines, Neuropathy, Diabetic, Other (See Below) Other Neuro History: body shuts down from stress Psychiatric History: Reports: ADD, ADHD, Addiction, Aggressive/Hostile Behaviors , Anxiety, Depression, Emotional Problems, Panic Attack, Psych Hospitalization(s ), PTSD Endocrine/Metabolic History: Reports: Diabetes, Type II, Obesity/BMI 30+ Hematologic History: Reports: None Immunologic History: Reports: None Other Immunologic History: not sure if has been exposed to HIV Oncologic (Cancer) History: Reports: None Dermatologic History: Reports: Other (See Below) Other Dermatologic History: has bumps in the groin area and a rash on body - Infectious Disease History Infectious Disease History: Reports: Chicken Pox, Hepatitis C Other Infectious Disease History: has active Hep C - Past Surgical History Head Surgeries/Procedures: Reports: None HEENT Surgical History: Reports: Oral Surgery, Other (See Below) GI Surgical History: Reports: Cholecystectomy, Other (See Below) Female Surgical History: Reports: D&C, Tubal Ligation Social & Family History - Family History Family Medical History: Noncontributory Cardiac: Reports: High Cholesterol, Hypertension, [place] Other Cardiac Family History: Grandmother on mom's side. Both sides have hypertension and high cholesterol Endocrine/Metabolic: Reports: Diabetes, type II Other Endocrine/Metabolic Family History: Both sides of family. - Tobacco Use Smoking Status *Q: Current Every Day Smoker Years of Tobacco use: 30 Packs/Tins Daily: 0.5 Second Hand Smoke Exposure: No - Caffeine Use Caffeine Use: Reports: Coffee, Soda - Recreational Drug Use Recreational Drug Use: No - Living Situation & Occupation Living situation: Reports: Other ED ROS GENERAL - Review of Systems Review Of Systems: ROS reveals no pertinent complaints other than HPI. ED EXAM, GENERAL - Physical Exam Exam: See Below Exam Limited By: No Limitations General Appearance: Alert, WD/WN, No Apparent Distress, Other (little anxious) Ears: Hearing Grossly Normal Throat/Mouth: Normal Voice, No Airway Compromise Head: Atraumatic Neck: Non-Tender, Full Range of Motion Respiratory/Chest: No Respiratory Distress Cardiovascular: Regular Rate, Rhythm GI/Abdominal: Soft, Tender, Other (inflammed injection site without lymphangitis , mild redness and tender to palpation.). No: Distended, Guarding, Rigid, Rebound Neurological: Alert, Oriented, Normal Cognition, Normal Gait, No Motor/Sensory Deficits Psychiatric: Flat Affect Skin Exam: Warm, Dry, Normal Color Lymphatic: No Adenopathy Course - Vital Signs Last Recorded V/S: Last Vital Signs Temp 35.9 C 01/22/19 17:58 Pulse 76 01/22/19 17:58 Resp 16 01/22/19 17:58 BP 98/50 L 01/22/19 17:58 Pulse Ox 99 01/22/19 17:58 - Orders/Labs/Meds Labs: Laboratory Tests 01/22/19 01/22/19 01/22/19 Range/Units 19:14 19:14 19:14 WBC 12.9 H (5.0-10.0) 10^3/uL RBC 4.58 (4.2-5.4) 10^6/uL Hgb 12.0 (12.0-16.0) g/dL Hct 37.6 (37.0-47.0) % MCV 82.1 D (80-100) fL MCH 26.2 L (27.0-34.0) pg MCHC 31.9 L (33.0-35.0) g/dL Plt Count 333 D (150-450) 10^3/uL Neut % (Auto) 77.4 H (42.2-75.2) % Lymph % (Auto) 13.5 L (20.5-50.1) % [place] % (Auto) 6.6 (2-8) % Eos % (Auto) 2.3 (1.0-3.0) % Baso % (Auto) 0.2 (0.0-1.0) % Add Manual Diff Yes Neutrophils % (Manual) 86 H (42-75) % Lymphocytes % (Manual) 8 L (20-50) % Monocytes % (Manual) 5 (2-8) % Eosinophils % (Manual) 1 (1-3) % Sodium 139 (135-145) mmol/L Potassium 3.8 (3.6-5.0) mmol/L Chloride 106 (101-111) mmol/L Carbon Dioxide 26.0 (21.0-31.0) mmol/L Anion Gap 10.8 BUN 13 (7-18) mg/dL Creatinine 0.6 (0.6-1.3) mg/dL Est Cr Clr Drug Dosing 112.15 mL/min Estimated GFR (MDRD) > 60 BUN/Creatinine Ratio 21.66 Glucose 79 (74-105) mg/dL Lactic Acid 1.4 (0.5-2.2) mmol/L Calcium 8.7 (8.4-10.2) mg/dl Total Bilirubin 0.6 (0.2-1.0) mg/dL AST 34 (10-42) IU/L ALT 45 (10-60) IU/L Alkaline Phosphatase 139 H (42-121) IU/L Total Protein 7.1 (6.7-8.2) g/dl Albumin 3.7 (3.2-5.5) g/dl Globulin 3.4 Albumin/Globulin Ratio 1.09 Urine Color (YELLOW) Urine Appearance (CLEAR) Urine pH (5.0-9.0) Ur Specific [place] (1.005-1.030) Urine Protein (NEGATIVE) Urine Glucose (UA) (NEGATIVE) Urine Ketones (NEGATIVE) Urine Occult Blood (NEGATIVE) Urine Nitrite (NEGATIVE) Urine Bilirubin (NEGATIVE) Urine Urobilinogen (0.2-1.0) mg/dL Ur Leukocyte Esterase (NEGATIVE) Urine Opiates Screen (NEGATIVE) Ur Oxycodone Screen (NEGATIVE) Urine Methadone Screen (NEGATIVE) Ur Barbiturates Screen (NEGATIVE) U Tricyclic Antidepress (NEGATIVE) Ur Phencyclidine Scrn (NEGATIVE) Ur Amphetamine Screen (NEGATIVE) U Methamphetamines Scrn (NEGATIVE) Urine MDMA Screen (NEGATIVE) U Benzodiazepines Scrn (NEGATIVE) Urine Cocaine Screen (NEGATIVE) U Marijuana (THC) Screen (NEGATIVE) 01/22/19 01/22/19 Range/Units 20:12 20:12 WBC (5.0-10.0) 10^3/uL RBC (4.2-5.4) 10^6/uL Hgb (12.0-16.0) g/dL Hct (37.0-47.0) % MCV (80-100) fL MCH (27.0-34.0) pg MCHC (33.0-35.0) g/dL Plt Count (150-450) 10^3/uL Neut % (Auto) (42.2-75.2) % Lymph % (Auto) (20.5-50.1) % [place] % (Auto) (2-8) % Eos % (Auto) (1.0-3.0) % Baso % (Auto) (0.0-1.0) % Add Manual Diff Neutrophils % (Manual) (42-75) % Lymphocytes % (Manual) (20-50) % Monocytes % (Manual) (2-8) % Eosinophils % (Manual) (1-3) % Sodium (135-145) mmol/L Potassium (3.6-5.0) mmol/L Chloride (101-111) mmol/L Carbon Dioxide (21.0-31.0) mmol/L Anion Gap BUN (7-18) mg/dL Creatinine (0.6-1.3) mg/dL Est Cr Clr Drug Dosing mL/min Estimated GFR (MDRD) BUN/Creatinine Ratio Glucose (74-105) mg/dL Lactic Acid (0.5-2.2) mmol/L Calcium (8.4-10.2) mg/dl Total Bilirubin (0.2-1.0) mg/dL AST (10-42) IU/L ALT (10-60) IU/L Alkaline Phosphatase (42-121) IU/L Total Protein (6.7-8.2) g/dl Albumin (3.2-5.5) g/dl Globulin Albumin/Globulin Ratio Urine Color Yellow (YELLOW) Urine Appearance Clear (CLEAR) Urine pH 7.0 (5.0-9.0) Ur Specific [place] 1.020 (1.005-1.030) Urine Protein Negative (NEGATIVE) Urine Glucose (UA) Negative (NEGATIVE) Urine Ketones Negative (NEGATIVE) Urine Occult Blood Negative (NEGATIVE) Urine Nitrite Negative (NEGATIVE) Urine Bilirubin Negative (NEGATIVE) Urine Urobilinogen 0.2 (0.2-1.0) mg/dL Ur Leukocyte Esterase Negative (NEGATIVE) Urine Opiates Screen Negative (NEGATIVE) Ur Oxycodone Screen Negative (NEGATIVE) Urine Methadone Screen Negative (NEGATIVE) Ur Barbiturates Screen Negative (NEGATIVE) U Tricyclic Antidepress Negative (NEGATIVE) Ur Phencyclidine Scrn Negative (NEGATIVE) Ur Amphetamine Screen Negative (NEGATIVE) U Methamphetamines Scrn Negative (NEGATIVE) Urine MDMA Screen Negative (NEGATIVE) U Benzodiazepines Scrn Negative (NEGATIVE) Urine Cocaine Screen Negative (NEGATIVE) U Marijuana (THC) Screen Negative (NEGATIVE) Meds: Medications Discontinued Medications Generic Name Dose Route Start Last Admin Trade Name Freq PRN Reason Stop Dose Admin Clindamycin HCl 300 mg 01/22/19 20:20 01/22/19 20:39 Cleocin PO 01/22/19 20:21 300 mg ONETIME ONE Administration Ondansetron HCl 4 mg 01/22/19 20:39 Zofran Odt PO 01/22/19 20:40 ONETIME ONE - Re-Assessments/Exams Free Text/Narrative Re-Assessment/Exam: 01/22/19 20:42 results discussed with pt Departure - Departure Time of Disposition: 20:43 Disposition: Home, Self-Care 01 Condition: Good Clinical Impression: Infected wound - Discharge Information Forms: ED Department Discharge Additional Instructions: 1) avoid using same injection site more than few times 2) follow up at clinic rx given; clindamycin 300mg qid x 40 zofran ODT 4MG bid prn X 6
[2019-01-22 19:41] LABS: ANION GAP 10.8; CHLORIDE,CL 106 mmol/L (101-111); SODIUM,NA 139 mmol/L (135-145)
[2019-01-22] MEDS: Clindamycin HCl 150 MG Cap PO ONE (20:39)
[2019-01-22] MEDS: Ondansetron 4 MG Tab.DIS PO ONE (20:45)
== END 2019-01-22 20:53 | disposition home or self-care (01) ==
LOC: DL.ED 17:50
DX: T80.29XA Infection following other infusion, transfusion and therapeutic injection, initial encounter (principal); L08.9 Local infection of the skin and subcutaneous tissue, unspecified; I10 Essential (primary) hypertension; E66.9 Obesity, unspecified; K21.9 Gastro-esophageal reflux disease without esophagitis; E11.40 Type 2 diabetes mellitus with diabetic neuropathy, unspecified; F17.210 Nicotine dependence, cigarettes, uncomplicated; Z98.890 Other specified postprocedural states; Z90.49 Acquired absence of other specified parts of digestive tract; Z79.4 Long term (current) use of insulin; Z91.013 Allergy to seafood; Z79.899 Other long term (current) drug therapy; Z88.0 Allergy status to penicillin; Z91.040 Latex allergy status; Z88.1 Allergy status to other antibiotic agents; Z88.8 Allergy status to other drugs, medicaments and biological substances
CPT/HCPCS: 36415; 80053; 80305; 81003; 83605; 85025; 99283; A9270

== ENCOUNTER 2019-01-29 10:39 | Emergency (ER) | payer MEDICARE, MEDICAID ==
--- NOTE | 2019-01-29 11:01 | EDM.PDOC ---
ED HPI GENERAL MEDICAL PROBLEM - General Chief Complaint: Abdominal Pain Stated Complaint: DON'T FEEL GOOD Time Seen by Provider: 01/29/19 11:01 Source of Information: Reports: Patient, Old Records, RN, RN Notes Reviewed History Limitations: Reports: No Limitations - History of Present Illness INITIAL COMMENTS - FREE TEXT/NARRATIVE: Pt presents to the ER from home by POV with c/o B/L "kidney pain". Pt states that she gets "kidney pain" on and off for many years. A few days ago she felt the pain return and today became nauseated, but has not vomited. She denies fever or chills, dysuria, or hematuria. Pt states that she just wants to be medicated to be more comfortable. Pt states that she had mental health "issues" but she does not feel that is related to her abdominal and flank pain. Pt asks the nurse if she can have a hospice consult so that she can be taken care of half-way. When asked if she has a terminal condition that would qualify her for hospice, the pt reports that the chronic kidney pain is killing her. Onset: Unknown/Unsure Duration: Chronic, Constant, Getting Worse Location: Reports: Abdomen Quality: Reports: Ache Severity: Moderate Improves with: Reports: None Worsens with: Reports: None Associated Symptoms: Reports: No Other Symptoms - Related Data Allergies Allergy/AdvReac Type Severity Reaction Status Date / Time amoxicillin [Amoxicillin] Allergy Difficulty Verified 01/29/19 10:49 Swallowing cephalexin [Cephalexin] Allergy Cannot Verified 01/29/19 10:49 Remember Cephalosporins Allergy Difficulty Verified 01/29/19 10:49 Swallowing cyclobenzaprine Allergy Other Verified 01/29/19 10:49 [Cyclobenzaprine] lactose Allergy Diarrhea Verified 01/29/19 10:49 latex Allergy Itching Verified 01/29/19 10:49 meloxicam [From Mobic] Allergy Swelling Verified 01/29/19 10:49 Penicillins Allergy Anaphylactic Verified 01/29/19 10:49 Shock fish Allergy Rash Uncoded 01/29/19 10:49 Home Meds: Home Meds Albuterol Sulfate [Albuterol Sulfate HFA] 8.5 gm IH ASDIRECTED PRN 04/11/13 [ History] Gabapentin [Neurontin] 900 mg PO TID 04/11/13 [History] Lisinopril 20 mg PO DAILY 04/11/13 [History] Pantoprazole [ProTONIX Granules] 40 mg PO DAILY 04/11/13 [History] Hydrochlorothiazide 25 mg PO DAILY 09/23/15 [History] Insulin Glarg,Human.Rec.Analog [Lantus] 20 units SQ DAILY 04/19/16 [History] atorvaSTATin [Lipitor] 20 mg PO BEDTIME 07/20/16 [History] Ibuprofen 800 mg PO TID PRN 5 Days 09/04/16 [Rx] Insulin Aspart [NovoLOG] 8 unit SQ TID 08/05/18 [History] Magnesium 30 mg PO DAILY 08/05/18 [History] Celecoxib 100 mg PO DAILY 01/29/19 [History] SUMAtriptan succinate [Sumatriptan Succinate] 25 mg PO ASDIRECTED PRN 01/29/19 [ History] Past Medical History HEENT History: Reports: Impaired Vision, Other (See Below) Other HEENT History: ears drain all the time, wears glasses Cardiovascular History: Reports: Heart Murmur, High Cholesterol, Hypertension Respiratory History: Reports: Asthma, Bronchitis, Recurrent Gastrointestinal History: Reports: GERD Genitourinary History: Reports: Renal Calculus 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: Musculoskeletal History: Reports: Arthritis, Back Pain, Chronic, Other (See Below) Other Musculoskeletal History: bulging disx on L5 Neurological History: Reports: Concussion, Head Trauma, Migraines, Neuropathy, Diabetic, Other (See Below) Other Neuro History: body shuts down from stress Psychiatric History: Reports: ADD, ADHD, Addiction, Aggressive/Hostile Behaviors , Anxiety, Depression, Emotional Problems, Panic Attack, Psych Hospitalization(s ), PTSD Endocrine/Metabolic History: Reports: Diabetes, Type II, Obesity/BMI 30+ Hematologic History: Reports: None Immunologic History: Reports: None Other Immunologic History: not sure if has been exposed to HIV Oncologic (Cancer) History: Reports: None Dermatologic History: Reports: Other (See Below) Other Dermatologic History: has bumps in the groin area and a rash on body - Infectious Disease History Infectious Disease History: Reports: Chicken Pox, Hepatitis C Other Infectious Disease History: has active Hep C - Past Surgical History Head Surgeries/Procedures: Reports: None HEENT Surgical History: Reports: Oral Surgery, Other (See Below) GI Surgical History: Reports: Cholecystectomy, Other (See Below) Female Surgical History: Reports: D&C, Tubal Ligation Social & Family History - Family History Family Medical History: Noncontributory Cardiac: Reports: High Cholesterol, Hypertension, [place] Other Cardiac Family History: Grandmother on mom's side. Both sides have hypertension and high cholesterol Endocrine/Metabolic: Reports: Diabetes, type II Other Endocrine/Metabolic Family History: Both sides of family. - Caffeine Use Caffeine Use: Reports: Coffee, Soda - Alcohol Use Alcohol Use History: Yes Alcohol Use Frequency: Patient Refused to Answer - Recreational Drug Use Recreational Drug Use: Yes Recreational Drug Type: Reports: Marijuana/Hashish, Methamphetamine, Oxycodone Recreational Drug Use Frequency: Patient Refuses To Answer - Living Situation & Occupation Living situation: Reports: Other ED ROS GENERAL - Review of Systems Review Of Systems: ROS reveals no pertinent complaints other than HPI. ED EXAM, GI/ABD - Physical Exam Exam: See Below Exam Limited By: No Limitations General Appearance: Alert, No Apparent Distress, Obese Eyes: Bilateral: Normal Appearance (No scleral icterus) Nose: Normal Inspection Throat/Mouth: Normal Inspection, Normal Voice, No Airway Compromise Head: Atraumatic, Normocephalic Neck: Normal Inspection Respiratory/Chest: No Respiratory Distress, Lungs Clear, Normal Breath Sounds, No Accessory Muscle Use, Chest Non-Tender Cardiovascular: Regular Rate, Rhythm GI/Abdominal Exam: Normal Bowel Sounds, Soft, No Distention, Tender (mild generalized tenderness to palpation, no peritoneal signs). No: Guarding, Rigid , Rebound (Female) Exam: Deferred Rectal (Female) Exam: Deferred Back Exam: Full Range of Motion, CVA Tenderness (L), CVA Tenderness (R). No: Muscle Spasm, Paraspinal Tenderness, Vertebral Tenderness Extremities: Normal Inspection Neurological: Alert, Oriented, No Motor/Sensory Deficits Psychiatric: Flat Affect Skin Exam: Warm, Dry, Intact, Normal Color, No Rash Course - Vital Signs Last Recorded V/S: Last Vital Signs Temp 98.2 F 01/29/19 10:45 Pulse 95 01/29/19 10:45 Resp 20 01/29/19 10:45 BP 122/68 01/29/19 10:45 Pulse Ox 99 01/29/19 10:45 - Orders/Labs/Meds Orders: Active Orders 24 hr Category Date Time Status CBC WITH AUTO DIFF [HEME] Stat Lab 01/29/19 11:20 Results CULTURE URINE [RM] Stat Lab 01/29/19 11:05 Received MANUAL DIFFERENTIAL QA/NC [HEME] Stat Lab 01/29/19 11:20 Results Labs: Laboratory Tests 01/29/19 01/29/19 01/29/19 Range/Units 11:05 11:05 11:05 WBC (5.0-10.0) 10^3/uL RBC (4.2-5.4) 10^6/uL Hgb (12.0-16.0) g/dL Hct (37.0-47.0) % MCV (80-100) fL MCH (27.0-34.0) pg MCHC (33.0-35.0) g/dL Plt Count (150-450) 10^3/uL Neut % (Auto) (42.2-75.2) % Lymph % (Auto) (20.5-50.1) % Randall % (Auto) (2-8) % Eos % (Auto) (1.0-3.0) % Baso % (Auto) (0.0-1.0) % Add Manual Diff Sodium (135-145) mmol/L Potassium (3.6-5.0) mmol/L Chloride (101-111) mmol/L Carbon Dioxide (21.0-31.0) mmol/L Anion Gap BUN (7-18) mg/dL Creatinine (0.6-1.3) mg/dL Est Cr Clr Drug Dosing mL/min Estimated GFR (MDRD) BUN/Creatinine Ratio Glucose (74-105) mg/dL Calcium (8.4-10.2) mg/dl Total Bilirubin (0.2-1.0) mg/dL AST (10-42) IU/L ALT (10-60) IU/L Alkaline Phosphatase (42-121) IU/L Total Protein (6.7-8.2) g/dl Albumin (3.2-5.5) g/dl Globulin Albumin/Globulin Ratio Amylase (28-100) U/L Lipase (22-51) U/L Urine Color Yellow (YELLOW) Urine Appearance Turbid (CLEAR) Urine pH 6.5 (5.0-9.0) Ur Specific [place] 1.025 (1.005-1.030) Urine Protein Trace H (NEGATIVE) Urine Glucose (UA) Negative (NEGATIVE) Urine Ketones Negative (NEGATIVE) Urine Occult Blood Negative (NEGATIVE) Urine Nitrite Negative (NEGATIVE) Urine Bilirubin Negative (NEGATIVE) Urine Urobilinogen 0.2 (0.2-1.0) mg/dL Ur Leukocyte Esterase Small H (NEGATIVE) Urine RBC Not seen /HPF Urine WBC 10-20 H (0-5/HPF) /HPF Ur Epithelial Cells Moderate H (NOT SEEN) /HPF Amorphous Sediment Moderate H (NOT SEEN) /HPF Urine Bacteria Few (0-FEW/HPF) /HPF Urine HCG, Qual Negative Urine Opiates Screen Negative (NEGATIVE) Ur Oxycodone Screen Negative (NEGATIVE) Urine Methadone Screen Negative (NEGATIVE) Ur Barbiturates Screen Negative (NEGATIVE) U Tricyclic Antidepress Negative (NEGATIVE) Ur Phencyclidine Scrn Negative (NEGATIVE) Ur Amphetamine Screen Negative (NEGATIVE) U Methamphetamines Scrn Positive H (NEGATIVE) Urine MDMA Screen Negative (NEGATIVE) U Benzodiazepines Scrn Negative (NEGATIVE) Urine Cocaine Screen Negative (NEGATIVE) U Marijuana (THC) Screen Negative (NEGATIVE) 01/29/19 01/29/19 Range/Units 11:20 11:20 WBC 12.4 H (5.0-10.0) 10^3/uL RBC 4.83 (4.2-5.4) 10^6/uL Hgb 12.8 (12.0-16.0) g/dL Hct 39.2 (37.0-47.0) % MCV 81.2 (80-100) fL MCH 26.5 L (27.0-34.0) pg MCHC 32.7 L (33.0-35.0) g/dL Plt Count 312 (150-450) 10^3/uL Neut % (Auto) 72.2 (42.2-75.2) % Lymph % (Auto) 17.1 L (20.5-50.1) % Randall % (Auto) 7.5 (2-8) % Eos % (Auto) 3.1 H (1.0-3.0) % Baso % (Auto) 0.1 (0.0-1.0) % Add Manual Diff Yes Sodium 136 (135-145) mmol/L Potassium 3.5 L (3.6-5.0) mmol/L Chloride 101 (101-111) mmol/L Carbon Dioxide 25.0 (21.0-31.0) mmol/L Anion Gap 13.5 BUN 16 (7-18) mg/dL Creatinine 0.5 L (0.6-1.3) mg/dL Est Cr Clr Drug Dosing 140.01 mL/min Estimated GFR (MDRD) > 60 BUN/Creatinine Ratio 32.00 Glucose 118 H (74-105) mg/dL Calcium 8.6 (8.4-10.2) mg/dl Total Bilirubin 1.0 (0.2-1.0) mg/dL AST 36 (10-42) IU/L ALT 48 (10-60) IU/L Alkaline Phosphatase 104 (42-121) IU/L Total Protein 6.9 (6.7-8.2) g/dl Albumin 3.6 (3.2-5.5) g/dl Globulin 3.3 Albumin/Globulin Ratio 1.09 Amylase 52 (28-100) U/L Lipase 36 (22-51) U/L Urine Color (YELLOW) Urine Appearance (CLEAR) Urine pH (5.0-9.0) Ur Specific [place] (1.005-1.030) Urine Protein (NEGATIVE) Urine Glucose (UA) (NEGATIVE) Urine Ketones (NEGATIVE) Urine Occult Blood (NEGATIVE) Urine Nitrite (NEGATIVE) Urine Bilirubin (NEGATIVE) Urine Urobilinogen (0.2-1.0) mg/dL Ur Leukocyte Esterase (NEGATIVE) Urine RBC /HPF Urine WBC (0-5/HPF) /HPF Ur Epithelial Cells (NOT SEEN) /HPF Amorphous Sediment (NOT SEEN) /HPF Urine Bacteria (0-FEW/HPF) /HPF Urine HCG, Qual Urine Opiates Screen (NEGATIVE) Ur Oxycodone Screen (NEGATIVE) Urine Methadone Screen (NEGATIVE) Ur Barbiturates Screen (NEGATIVE) U Tricyclic Antidepress (NEGATIVE) Ur Phencyclidine Scrn (NEGATIVE) Ur Amphetamine Screen (NEGATIVE) U Methamphetamines Scrn (NEGATIVE) Urine MDMA Screen (NEGATIVE) U Benzodiazepines Scrn (NEGATIVE) Urine Cocaine Screen (NEGATIVE) U Marijuana (THC) Screen (NEGATIVE) Meds: Medications Discontinued Medications Generic Name Dose Route Start Last Admin Trade Name Freq PRN Reason Stop Dose Admin Promethazine HCl 50 mg 01/29/19 11:06 01/29/19 11:22 Phenergan IM 01/29/19 11:07 50 mg ONETIME ONE Administration Departure - Departure Time of Disposition: 12:03 Disposition: Home, Self-Care 01 Condition: Good Clinical Impression: Flank pain, Abdominal pain - Discharge Information *PRESCRIPTION DRUG MONITORING PROGRAM REVIEWED*: No *COPY OF PRESCRIPTION DRUG MONITORING REPORT IN PATIENT ANIVAL: No Instructions: Flank Pain, Adult, [id number], Abdominal Pain, Adult, Easy-to- Read Forms: ED Department Discharge Additional Instructions: Rx: Promethazine 25mg Rx: Bentyl 20mg Follow up at your primary clinic in 4 to 5 days for recheck. [facility]. - My Orders Last 24 Hours: My Active Orders 01/29/19 11:05 CULTURE URINE [RM] Stat 01/29/19 11:20 CBC WITH AUTO DIFF [HEME] Stat MANUAL DIFFERENTIAL QA/NC [HEME] Stat - Assessment/Plan Last 24 Hours: My Active Orders 01/29/19 11:05 CULTURE URINE [RM] Stat 01/29/19 11:20 CBC WITH AUTO DIFF [HEME] Stat MANUAL DIFFERENTIAL QA/NC [HEME] Stat
[2019-01-29 11:03] VITALS: BP 122/68; PULSE 95
[2019-01-29] MEDS ORDERED: Promethazine 25 MG/ML SDV IM ONE (11:06)
[2019-01-29 11:54] LABS: ANION GAP 13.5; CHLORIDE,CL 101 mmol/L (101-111); SODIUM,NA 136 mmol/L (135-145)
== END 2019-01-29 12:10 | disposition home or self-care (01) ==
LOC: DL.ED 10:39
DX: R10.9 Unspecified abdominal pain (principal); E78.00 Pure hypercholesterolemia, unspecified; I10 Essential (primary) hypertension; J45.909 Unspecified asthma, uncomplicated; K21.9 Gastro-esophageal reflux disease without esophagitis; M19.90 Unspecified osteoarthritis, unspecified site; E11.40 Type 2 diabetes mellitus with diabetic neuropathy, unspecified; E66.9 Obesity, unspecified; Z68.34 Body mass index [BMI] 34.0-34.9, adult; Z88.0 Allergy status to penicillin; Z88.1 Allergy status to other antibiotic agents; Z91.013 Allergy to seafood; Z88.8 Allergy status to other drugs, medicaments and biological substances; Z88.6 Allergy status to analgesic agent; Z91.040 Latex allergy status; Z91.011 Allergy to milk products; Z79.899 Other long term (current) drug therapy; Z79.4 Long term (current) use of insulin
CPT/HCPCS: 36415; 80053; 80305; 81001; 81025; 82150; 83690; 85025; 87086; 96372; 99283; J2550

== ENCOUNTER 2019-09-02 03:11 | Emergency (ER) | payer MEDICARE, MEDICAID ==
[2019-09-02 03:20] VITALS: BP 137/83; PULSE 134
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
== END 2019-09-02 03:36 | disposition home or self-care (01) ==
LOC: DL.ED 03:11
DX: S09.93XA Unspecified injury of face, initial encounter (principal); E78.00 Pure hypercholesterolemia, unspecified; I10 Essential (primary) hypertension; J45.909 Unspecified asthma, uncomplicated; K21.9 Gastro-esophageal reflux disease without esophagitis; E11.40 Type 2 diabetes mellitus with diabetic neuropathy, unspecified; E66.9 Obesity, unspecified; F17.210 Nicotine dependence, cigarettes, uncomplicated; Z88.0 Allergy status to penicillin; Z88.1 Allergy status to other antibiotic agents; Z88.8 Allergy status to other drugs, medicaments and biological substances; Z91.013 Allergy to seafood; Z79.899 Other long term (current) drug therapy; Z79.4 Long term (current) use of insulin; Z68.35 Body mass index [BMI] 35.0-35.9, adult; Y04.0XXA Assault by unarmed brawl or fight, initial encounter
CPT/HCPCS: 99283

== ENCOUNTER 2019-12-31 17:39 | Inpatient (IN) | payer MEDICARE, MEDICAID ==
[2019-12-31] MEDS ORDERED: diphenhydrAMINE 50 MG/ML SDV IVPUSH ONE (19:43)
[2019-12-31] MEDS ORDERED: HYDROmorphone 1 MG/ML Syringe IVPUSH ONE ×2 (19:43→20:52)
[2019-12-31] MEDS ORDERED: Lidocaine 1% 30 ML SDV INJECT ONE (19:43)
[2019-12-31 20:22] LABS: ANION GAP 16.4 mEq/L (7-13)
[2019-12-31] MEDS ORDERED: Sodium Chloride 0.9% 1,000 ML IV ONE (20:31)
--- NOTE | 2019-12-31 20:51 | EDM.PDOC ---
ED HPI GENERAL MEDICAL PROBLEM - General Chief Complaint: Skin Complaint Stated Complaint: BOIL RIGHT ELBOW AREA, HURTS Time Seen by Provider: 12/31/19 20:32 Source of Information: Reports: Patient, Provider, RN History Limitations: Reports: No Limitations - History of Present Illness INITIAL COMMENTS - FREE TEXT/NARRATIVE: 39-year-old female with a past medical history of diabetes, substance use disorder, headaches, seizures, hypertension, and anxiety who presents to the ER with complaints of right antecubital pain. Patient reports waking up with an abscess 2 days ago and was seen in the clinic where she was prescribed Bactrim. She states she has been taking the Bactrim as prescribed. Pain is gradually getting worse.she has not tried anything for pain. Last drug use 1 month ago. Reports a history of multiple abscesses and cellulitis.she denies any fevers, chills, shortness of breath, chest pain, palpitations, nausea/vomiting at this time. Right Arm Pain Score (Numeric/FACES): 8 - Related Data Allergies Allergy/AdvReac Type Severity Reaction Status Date / Time amoxicillin [Amoxicillin] Allergy Difficulty Verified 12/31/19 18:40 Swallowing cephalexin [Cephalexin] Allergy Cannot Verified 12/31/19 18:40 Remember Cephalosporins Allergy Difficulty Verified 12/31/19 18:40 Swallowing cyclobenzaprine Allergy Other Verified 12/31/19 18:40 [Cyclobenzaprine] lactose Allergy Diarrhea Verified 12/31/19 18:40 latex Allergy Itching Verified 12/31/19 18:40 meloxicam [From Mobic] Allergy Swelling Verified 12/31/19 18:40 Penicillins Allergy Anaphylactic Verified 12/31/19 18:40 Shock fish Allergy Rash Uncoded 12/31/19 18:40 Home Meds: Home Meds Albuterol Sulfate [Albuterol Sulfate HFA] 8.5 gm IH ASDIRECTED PRN 04/11/13 [History] Gabapentin [Neurontin] 900 mg PO TID 04/11/13 [History] Lisinopril 20 mg PO DAILY 04/11/13 [History] Pantoprazole [ProTONIX Granules] 40 mg PO DAILY 04/11/13 [History] Hydrochlorothiazide 25 mg PO DAILY 09/23/15 [History] Insulin Glarg,Human.Rec.Analog [Lantus] 20 units SQ DAILY 04/19/16 [History] atorvaSTATin [Lipitor] 20 mg PO BEDTIME 07/20/16 [History] Ibuprofen 800 mg PO TID PRN 5 Days 09/04/16 [Rx] Insulin Aspart [NovoLOG] 8 unit SQ TID 08/05/18 [History] Magnesium 30 mg PO DAILY 08/05/18 [History] Celecoxib 100 mg PO BID 01/29/19 [History] SUMAtriptan succinate [Sumatriptan Succinate] 25 mg PO ASDIRECTED PRN 01/29/19 [History] Past Medical History HEENT History: Reports: Impaired Vision, Other (See Below) Other HEENT History: ears drain all the time, wears glasses Cardiovascular History: Reports: Heart Murmur, High Cholesterol, Hypertension Respiratory History: Reports: Asthma, Bronchitis, Recurrent Gastrointestinal History: Reports: GERD Genitourinary History: Reports: Renal Calculus 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: Musculoskeletal History: Reports: Arthritis, Back Pain, Chronic, Other (See Below) Other Musculoskeletal History: bulging disx on L5 Neurological History: Reports: Concussion, Head Trauma, Migraines, Neuropathy, Diabetic, Other (See Below) Other Neuro History: body shuts down from stress Psychiatric History: Reports: ADD, ADHD, Addiction, Aggressive/Hostile Behaviors, Anxiety, Depression, Emotional Problems, Panic Attack, Psych Hospitalization(s), PTSD Endocrine/Metabolic History: Reports: Diabetes, Type II, Obesity/BMI 30+ Hematologic History: Reports: None Immunologic History: Reports: None Other Immunologic History: not sure if has been exposed to HIV Oncologic (Cancer) History: Reports: None Dermatologic History: Reports: Other (See Below) Other Dermatologic History: has bumps in the groin area and a rash on body - Infectious Disease History Infectious Disease History: Reports: Chicken Pox, Hepatitis C Other Infectious Disease History: has active Hep C - Past Surgical History Head Surgeries/Procedures: Reports: None HEENT Surgical History: Reports: Oral Surgery, Other (See Below) GI Surgical History: Reports: Cholecystectomy, Other (See Below) Female Surgical History: Reports: D&C, Tubal Ligation Social & Family History - Family History Family Medical History: Noncontributory Cardiac: Reports: High Cholesterol, Hypertension, CA Other Cardiac Family History: Grandmother on mom's side. Both sides have hypertension and high cholesterol Endocrine/Metabolic: Reports: Diabetes, type II Other Endocrine/Metabolic Family History: Both sides of family. - Tobacco Use Smoking Status *Q: Current Every Day Smoker Years of Tobacco use: 20 Packs/Tins Daily: 0.5 Second Hand Smoke Exposure: No - Caffeine Use Caffeine Use: Reports: Coffee - Recreational Drug Use Recreational Drug Type: Reports: Methamphetamine - Living Situation & Occupation Living situation: Reports: Other ED ROS GENERAL - Review of Systems Review Of Systems: Comprehensive ROS is negative, except as noted in HPI. ED EXAM, SKIN/RASH Exam: See Below Exam Limited By: No Limitations General Appearance: Alert, Moderate Distress Respiratory/Chest: No Respiratory Distress, Lungs Clear, Normal Breath Sounds, No Accessory Muscle Use, Chest Non-Tender Cardiovascular: Regular Rate, Rhythm, No Edema, No Gallop, No JVD, No Murmur, No Rub, Tachycardia (mild) Peripheral Pulses: 3+: Brachial (L), Brachial (R), Radial (L), Radial (R) GI/Abdominal: Normal Bowel Sounds, Soft, Non-Tender, No Organomegaly, No Distention, No Abnormal Bruit, No Mass Extremities: Normal Capillary Refill, Limited Range of Motion (due to pain), Increased Warmth (on the right medal AC area. Abscess with surround induration n oted), Redness Neurological: Alert, Oriented, No Motor/Sensory Deficits Psychiatric: Anxious Skin: Warm Location, Skin: Upper Extremity, Right Associated features: Warmth, Tenderness, Swelling, Induration Lymphatic: No Adenopathy ED SKIN PROCEDURES - I&D Skin Prep: Providone-Iodine (Betadine) Local Anesthesia: Lidocaine: 1% Plain Area Incised With: 11 Blade Drainage: Purulent, Bloody, Large Amount Probed to Break Up Loculations: Yes Packed With: 1/4 in. Iodoform Sterile Dressinx4(s) Complications: No Progress/Comments: Patient tolerated procedure well. Course - Vital Signs Last Recorded V/S: Last Vital Signs Temp 96.8 F L 12/31/19 18:27 Pulse 109 H 12/31/19 18:27 Resp 16 12/31/19 18:27 BP 118/67 12/31/19 18:27 Pulse Ox 96 12/31/19 18:27 - Orders/Labs/Meds Orders: Active Orders 24 hr Category Date Time Status CBC WITH AUTO DIFF [HEME] Stat Lab 12/31/19 19:55 Results CULTURE BLOOD [BC] Stat Lab 12/31/19 20:20 Received CULTURE BLOOD [BC] Stat Lab 12/31/19 20:25 Received CULTURE WOUND [RM] Stat Lab 12/31/19 19:41 Ordered LACTIC ACID [CHEM] Stat Lab 12/31/19 20:20 Received MANUAL DIFFERENTIAL QA/NC [HEME] Stat Lab 12/31/19 19:55 Results VANCOmycin/Water for INJ (PEG) [VANCOmycin 1.5 GM/300 Med 12/31/19 19:42 Active ML Premix] 1.5 gm Premix Bag 1 bag IV ONETIME Blood Culture x2 Reflex Set [OM.PC] Stat Oth 12/31/19 20:05 Ordered Medication Orders Vancomycin HCl 1.5 gm/ Premix 300 mls @ 200 mls/hr IV ONETIME ONE Stop: 12/31/19 21:11 Last Admin: 12/31/19 20:08 Dose: 200 mls/hr Documented by: JESSE Labs: Laboratory Tests 12/31/19 12/31/19 12/31/19 Range/Units 19:55 19:55 19:55 WBC 18.9 H (5.0-10.0) 10^3/uL RBC 4.71 (4.2-5.4) 10^6/uL Hgb 12.7 (12.0-16.0) g/dL Hct 38.0 (37.0-47.0) % MCV 80.7 (80-100) fL MCH 27.0 (27.0-34.0) pg MCHC 33.4 (33.0-35.0) g/dL Plt Count 288 (150-450) 10^3/uL Neut % (Auto) 80.0 H (42.2-75.2) % Lymph % (Auto) 9.7 L (20.5-50.1) % [place] % (Auto) 8.5 H (2-8) % Eos % (Auto) 1.6 (1.0-3.0) % Baso % (Auto) 0.2 (0.0-1.0) % Add Manual Diff Yes Sodium 134 L (136-145) mmol/L Potassium 4.4 (3.5-5.1) mmol/L Chloride 100 (98-107) mmol/L Carbon Dioxide 22 (21-32) mmol/L Anion Gap 16.4 H (7-13) mEq/L BUN 16 (7-18) mg/dL Creatinine 1.17 H (0.55-1.02) mg/dL Est Cr Clr Drug Dosing 59.24 mL/min Estimated GFR (MDRD) 51 BUN/Creatinine Ratio 13.7 (No establ ref range) Glucose 261 H (74-99) mg/dL Calcium 8.3 L (8.5-10.1) mg/dL Total Bilirubin 0.3 (0.2-1.0) mg/dL AST 19 (15-37) U/L ALT 41 (14-59) U/L Alkaline Phosphatase 227 H (46-116) U/L C-Reactive Protein 7.3 H (0.0-0.9) mg/dL Total Protein 6.8 (6.4-8.2) g/dL Albumin 3.1 L (3.4-5.0) g/dL Globulin 3.7 Albumin/Globulin Ratio 0.84 Meds: Medications Generic Name Dose Route Start Last Admin Trade Name Freq PRN Reason Stop Dose Admin Vancomycin HCl 1.5 gm/ Premix 300 mls @ 200 mls/hr 12/31/19 19:42 12/31/19 20:08 IV 12/31/19 21:11 200 mls/hr ONETIME ONE Administration Discontinued Medications Generic Name Dose Route Start Last Admin Trade Name Freq PRN Reason Stop Dose Admin Diphenhydramine HCl 25 mg 12/31/19 19:43 12/31/19 20:04 Benadryl IVPUSH 12/31/19 19:44 25 mg ONETIME ONE Administration Hydromorphone HCl 1 mg 12/31/19 19:43 12/31/19 20:04 Dilaudid IVPUSH 12/31/19 19:44 1 mg ONETIME ONE Administration Lidocaine HCl 30 ml 12/31/19 19:43 12/31/19 20:10 Xylocaine-Mpf 1% INJECT 12/31/19 19:44 5 ml ONETIME ONE Administration - Re-Assessments/Exams Free Text/Narrative Re-Assessment/Exam: 39-year-old female who presents to the ER with abscess to the right antecubital area. She was seen in thein the clinic 2 days ago and is currently on Bactrim. Exam findings reviewed with patient and vancomycin IV, Dilaudid 1 mg 2 and IV fluids are initiated. Lab results reviewed the patient. See procedure note. Discussed case with Dr. Whitley for the patient for inpatient admission. Patient in agreement to plan. Departure - Departure Time of Disposition: 20:57 Disposition: Admitted As Inpatient 64 Condition: Fair Clinical Impression: Abscess, Hyponatremia Cellulitis Qualifiers: Site of cellulitis: extremity Site of cellulitis of extremity: upper extremity Laterality: right Qualified Code(s): L03.113 - Cellulitis of right upper limb Diabetes mellitus Qualifiers: Diabetes mellitus type: type 2 Diabetes mellitus half-way insulin use: unspecified half-way insulin use status Diabetes mellitus complication status: without complication Qualified Code(s): E11.9 - Type 2 diabetes mellitus without complications - Discharge Information Sepsis Event Note (ED) - Evaluation Sepsis Screening Result: No Definite Risk - Focused Exam Vital Signs: Vital Signs Temp Pulse Resp BP Pulse Ox 12/31/19 18:27 96.8 F L 109 H 16 118/67 96
[2019-12-31] MEDS ORDERED: 50% Dextrose in Water 50 ML Syringe IVPUSH PRN (21:46)
[2019-12-31] MEDS ORDERED: Ibuprofen 800 MG Tab PO PRN (21:47)
[2019-12-31] MEDS ORDERED: Sodium Chloride 0.9% 10 ML Syringe FLUSH PRN (21:50)
[2019-12-31] MEDS ORDERED: Acetaminophen 325 MG Tab PO PRN (21:50)
[2019-12-31] MEDS ORDERED: Ondansetron 4 MG Tab.DIS PO PRN (21:50)
[2019-12-31] MEDS ORDERED: Docusate Sodium 100 MG Cap PO PRN (21:50)
[2019-12-31] MEDS ORDERED: Zolpidem 5 MG Tab PO PRN (21:50)
[2019-12-31] MEDS ORDERED: Acetaminophen/HYDROcodone 325-10 MG Tab PO PRN (21:50)
--- NOTE | 2019-12-31 21:57 | PCM.HP ---
H&P History of Present Illness - General Date of Service: 12/31/19 Admit Problem/Dx: Admission Diagnosis/Problem Admission Diagnosis/Problem Cellulitis Source of Information: Patient History Limitations: Reports: No Limitations - History of Present Illness Initial Comments - Free Text/Narative: 39-year-old with a history of diabetes, obesity, anxiety, intravenous substance use, last time 1 month ago. Has a history of MRSA skin infection Presented with the right antecubital area of the redness, swelling, abscess. Symptoms started about 8-9 days prior to this admission, has been gradually worsening. Has used Bactrim for 2 days. No associated fever, there is significant pain. No chest Pain. Right Arm Pain Score (Numeric/FACES): 8 - Related Data Allergies/Adverse Reactions: Allergies Allergy/AdvReac Type Severity Reaction Status Date / Time amoxicillin [Amoxicillin] Allergy Difficulty Verified 12/31/19 18:40 Swallowing cephalexin [Cephalexin] Allergy Cannot Verified 12/31/19 18:40 Remember Cephalosporins Allergy Difficulty Verified 12/31/19 18:40 Swallowing cyclobenzaprine Allergy Other Verified 12/31/19 18:40 [Cyclobenzaprine] lactose Allergy Diarrhea Verified 12/31/19 18:40 latex Allergy Itching Verified 12/31/19 18:40 meloxicam [From Mobic] Allergy Swelling Verified 12/31/19 18:40 Penicillins Allergy Anaphylactic Verified 12/31/19 18:40 Shock fish Allergy Rash Uncoded 12/31/19 18:40 Home Medications: Home Meds Albuterol Sulfate [Albuterol Sulfate HFA] 8.5 gm IH ASDIRECTED PRN 04/11/13 [Hi story] Gabapentin [Neurontin] 600 mg PO TID 04/11/13 [History] Lisinopril 20 mg PO BEDTIME 04/11/13 [History] Pantoprazole [ProTONIX Granules] 40 mg PO DAILY 04/11/13 [History] Hydrochlorothiazide 25 mg PO DAILY 09/23/15 [History] Insulin Glarg,Human.Rec.Analog [Lantus] 20 units SQ BEDTIME 04/19/16 [History] atorvaSTATin [Lipitor] 20 mg PO BEDTIME 07/20/16 [History] Ibuprofen 800 mg PO TID PRN 5 Days 09/04/16 [Rx] Insulin Aspart [NovoLOG] 8 unit SQ TID 08/05/18 [History] Magnesium 30 mg PO BEDTIME 08/05/18 [History] Celecoxib 100 mg PO BID 01/29/19 [History] SUMAtriptan succinate [Sumatriptan Succinate] 25 mg PO ASDIRECTED PRN 01/29/19 [History] Past Medical History HEENT History: Reports: Impaired Vision, Other (See Below) Other HEENT History: ears drain all the time, wears glasses Cardiovascular History: Reports: Heart Murmur, High Cholesterol, Hypertension Respiratory History: Reports: Asthma, Bronchitis, Recurrent Gastrointestinal History: Reports: GERD Genitourinary History: Reports: Renal Calculus 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: Musculoskeletal History: Reports: Arthritis, Back Pain, Chronic, Other (See Below) Other Musculoskeletal History: bulging disx on L5 Neurological History: Reports: Concussion, Head Trauma, Migraines, Neuropathy, Diabetic, Other (See Below) Other Neuro History: body shuts down from stress Psychiatric History: Reports: ADD, ADHD, Addiction, Aggressive/Hostile Behaviors, Anxiety, Depression, Emotional Problems, Panic Attack, Psych Hospitalization(s), PTSD Endocrine/Metabolic History: Reports: Diabetes, Type II, Obesity/BMI 30+ Hematologic History: Reports: None Immunologic History: Reports: None Other Immunologic History: not sure if has been exposed to HIV Oncologic (Cancer) History: Reports: None Dermatologic History: Reports: Other (See Below) Other Dermatologic History: has bumps in the groin area and a rash on body - Infectious Disease History Infectious Disease History: Reports: Chicken Pox, Hepatitis C Other Infectious Disease History: has active Hep C - Past Surgical History Head Surgeries/Procedures: Reports: None HEENT Surgical History: Reports: Oral Surgery, Other (See Below) GI Surgical History: Reports: Cholecystectomy, Other (See Below) Female Surgical History: Reports: D&C, Tubal Ligation Social & Family History - Family History Family Medical History: Noncontributory Cardiac: Reports: High Cholesterol, Hypertension, [place] Other Cardiac Family History: Grandmother on mom's side. Both sides have hypertension and high cholesterol Endocrine/Metabolic: Reports: Diabetes, type II Other Endocrine/Metabolic Family History: Both sides of family. - Tobacco Use Smoking Status *Q: Current Every Day Smoker Years of Tobacco use: 20 Packs/Tins Daily: 0.5 Second Hand Smoke Exposure: No - Caffeine Use Caffeine Use: Reports: Coffee - Recreational Drug Use Recreational Drug Type: Reports: Methamphetamine - Living Situation & Occupation Living situation: Reports: Other H&P Review of Systems - Review of Systems: Review Of Systems: See Below General: Denies: Fever Pulmonary: Denies: Shortness of Breath Cardiovascular: Denies: Chest Pain Gastrointestinal: Denies: Abdominal Pain Skin: Reports: Erythema Psychiatric: Denies: Confusion Exam - Exam Exam: See Below - Vital Signs Vital Signs: Last Vital Signs Temp 96.8 F L 12/31/19 18:27 Pulse 109 H 12/31/19 18:27 Resp 16 12/31/19 18:27 BP 118/67 12/31/19 18:27 Pulse Ox 96 12/31/19 18:27 Weight: 217 lb - Exam General: Alert, Oriented Neck: Supple Lungs: Clear to Auscultation, Normal Respiratory Effort Cardiovascular: Regular Rate, Regular Rhythm GI/Abdominal Exam: Normal Bowel Sounds, Soft, Non-Tender Extremities: No Pedal Edema, Other (Right antecubital area incised abscess with redness around it) - Patient Data Lab Results Last 24 hrs: Laboratory Results - last 24 hr 12/31/19 12/31/19 12/31/19 Range/Units 19:55 19:55 19:55 WBC 18.9 H (5.0-10.0) 10^3/uL RBC 4.71 (4.2-5.4) 10^6/uL Hgb 12.7 (12.0-16.0) g/dL Hct 38.0 (37.0-47.0) % MCV 80.7 (80-100) fL MCH 27.0 (27.0-34.0) pg MCHC 33.4 (33.0-35.0) g/dL Plt Count 288 (150-450) 10^3/uL Neut % (Auto) 80.0 H (42.2-75.2) % Lymph % (Auto) 9.7 L (20.5-50.1) % [place] % (Auto) 8.5 H (2-8) % Eos % (Auto) 1.6 (1.0-3.0) % Baso % (Auto) 0.2 (0.0-1.0) % Add Manual Diff Yes Neutrophils % (Manual) 71 (42-75) % Band Neutrophils % 9 % Lymphocytes % (Manual) 13 L (20-50) % Atypical Lymphs % 0 % Monocytes % (Manual) 4 (2-8) % Eosinophils % (Manual) 3 (1-3) % Sodium 134 L (136-145) mmol/L Potassium 4.4 (3.5-5.1) mmol/L Chloride 100 (98-107) mmol/L Carbon Dioxide 22 (21-32) mmol/L Anion Gap 16.4 H (7-13) mEq/L BUN 16 (7-18) mg/dL Creatinine 1.17 H (0.55-1.02) mg/dL Est Cr Clr Drug Dosing 59.24 mL/min Estimated GFR (MDRD) 51 BUN/Creatinine Ratio 13.7 (No establ ref range) Glucose 261 H (74-99) mg/dL Lactic Acid (0.4-2.0) mmol/L Calcium 8.3 L (8.5-10.1) mg/dL Total Bilirubin 0.3 (0.2-1.0) mg/dL AST 19 (15-37) U/L ALT 41 (14-59) U/L Alkaline Phosphatase 227 H (46-116) U/L C-Reactive Protein 7.3 H (0.0-0.9) mg/dL Total Protein 6.8 (6.4-8.2) g/dL Albumin 3.1 L (3.4-5.0) g/dL Globulin 3.7 Albumin/Globulin Ratio 0.84 09/03/20 Range/Units 20:20 WBC (5.0-10.0) 10^3/uL RBC (4.2-5.4) 10^6/uL Hgb (12.0-16.0) g/dL Hct (37.0-47.0) % MCV (80-100) fL MCH (27.0-34.0) pg MCHC (33.0-35.0) g/dL Plt Count (150-450) 10^3/uL Neut % (Auto) (42.2-75.2) % Lymph % (Auto) (20.5-50.1) % [place] % (Auto) (2-8) % Eos % (Auto) (1.0-3.0) % Baso % (Auto) (0.0-1.0) % Add Manual Diff Neutrophils % (Manual) (42-75) % Band Neutrophils % % Lymphocytes % (Manual) (20-50) % Atypical Lymphs % % Monocytes % (Manual) (2-8) % Eosinophils % (Manual) (1-3) % Sodium (136-145) mmol/L Potassium (3.5-5.1) mmol/L Chloride (98-107) mmol/L Carbon Dioxide (21-32) mmol/L Anion Gap (7-13) mEq/L BUN (7-18) mg/dL Creatinine (0.55-1.02) mg/dL Est Cr Clr Drug Dosing mL/min Estimated GFR (MDRD) BUN/Creatinine Ratio (No establ ref range) Glucose (74-99) mg/dL Lactic Acid 1.4 (0.4-2.0) mmol/L Calcium (8.5-10.1) mg/dL Total Bilirubin (0.2-1.0) mg/dL AST (15-37) U/L ALT (14-59) U/L Alkaline Phosphatase (46-116) U/L C-Reactive Protein (0.0-0.9) mg/dL Total Protein (6.4-8.2) g/dL Albumin (3.4-5.0) g/dL Globulin Albumin/Globulin Ratio Result Diagrams: 12/31/19 19:55 12/31/19 19:55 Brain Results Last 24 hrs: Microbiology 12/31/19 20:25 Anaerobic Blood Culture - Final Blood - Venous - Lab Draw 12/31/19 20:20 Anaerobic Blood Culture - Final Blood - Venous - Problem List (1) Skin abscess SNOMED Code(s): 81099775 ICD Code: L02.91 - CUTANEOUS ABSCESS, UNSPECIFIED Status: Acute Current Visit: Yes (2) Abscess SNOMED Code(s): 868521487 ICD Code: L02.91 - CUTANEOUS ABSCESS, UNSPECIFIED Status: Acute Current Visit: No (3) Anxiety SNOMED Code(s): 01290298 ICD Code: F41.9 - ANXIETY DISORDER, UNSPECIFIED Status: Acute Current Visit: No (4) Cellulitis SNOMED Code(s): 150278576 ICD Code: L03.90 - CELLULITIS, UNSPECIFIED Status: Acute Current Visit: No Qualifiers: Site of cellulitis: extremity Site of cellulitis of extremity: upper extremity Laterality: right Qualified Code(s): L03.113 - Cellulitis of right upper limb (5) Diabetes mellitus SNOMED Code(s): 81104291 ICD Code: E11.9 - TYPE 2 DIABETES MELLITUS WITHOUT COMPLICATIONS Status: Chronic Current Visit: No Qualifiers: Diabetes mellitus type: type 2 Diabetes mellitus 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 insulin use: unspecified 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 insulin use status Diabetes mellitus complication status: without complication Qualified Code(s): E11.9 - Type 2 diabetes mellitus without complications Problem List Initiated/Reviewed/Updated: Yes Orders Last 24hrs: Active Orders 24 hr Category Date Time Status Admission Diagnosis [ADT] Stat ADT 12/31/19 21:01 Ordered Admission Status [Patient Status] [ADT] Routine ADT 12/31/19 21:01 Active Antiembolic Devices [RC] PER UNIT ROUTINE Care 12/31/19 21:51 Ordered Blood Glucose Check, Bedside [RC] WITHMEALSANDBED Care 12/31/19 21:46 Ordered Communication Order [RC] DAILY Care 12/31/19 21:47 Ordered Oxygen Therapy [RC] PRN Care 12/31/19 21:50 Ordered Peripheral IV Care [RC] . DIRECTED Care 12/31/19 21:51 Ordered Up With Assistance [RC] ASDIRECTED Care 12/31/19 21:50 Ordered VTE/DVT Education [RC] PER UNIT ROUTINE Care 12/31/19 21:50 Ordered Vital Signs [RC] Q4H Care 12/31/19 21:50 Ordered Consistent Carbohydrate Diet [DIET] Diet 12/31/19 Breakfast Ordered BASIC METABOLIC PANEL,BMP [CHEM] AM Lab 01/01/20 05:11 Ordered CBC WITH AUTO DIFF [HEME] AM Lab 01/01/20 05:11 Ordered CULTURE BLOOD [BC] Stat Lab 12/31/19 20:20 Results CULTURE BLOOD [BC] Stat Lab 12/31/19 20:25 Results CULTURE WOUND [RM] Stat Lab 12/31/19 20:00 Received GLUCOSE,POC [POC] Routine Lab 12/31/19 21:48 Received Acetaminophen [TylenoL] Med 12/31/19 21:50 Ordered 650 mg PO Q4H PRN Acetaminophen/HYDROcodone [[place] 325-10 MG] Med 12/31/19 21:50 Ordered 1 tab PO Q4H PRN Celecoxib [CeleBREX] Med 01/01/20 09:00 Ordered 100 mg PO BID Dextrose 50% in Water Med 12/31/19 21:46 Ordered 25 ml IVPUSH ASDIRECTED PRN Docusate Sodium [Colace] Med 12/31/19 21:50 Ordered 100 mg PO BID PRN Heparin Sodium Med 12/31/19 22:00 Ordered 5,000 units SUBCUT Q8HR Hydrochlorothiazide [Hydrochlorothiazide] Med 01/01/20 09:00 Ordered 25 mg PO DAILY Ibuprofen [Motrin] Med 12/31/19 21:47 Ordered 800 mg PO TID PRN Insulin Aspart [NovoLOG] Med 01/01/20 09:00 Ordered 8 unit SQ TID Insulin Glarg,Human.Rec.Analog [LantUS] Med 01/01/20 09:00 Ordered 20 unit SUBCUT DAILY Insulin Lispro [HumaLOG] Med 01/01/20 08:00 Ordered See Protocol SUBCUT WITHMEALSANDBED Magnesium [Magnesium] Med 01/01/20 21:00 Ordered 30 mg PO BEDTIME Ondansetron [Zofran ODT] Med 12/31/19 21:50 Ordered 4 mg PO Q6H PRN Pantoprazole [ProTONIX Granules] Med 01/01/20 09:00 Ordered 40 mg PO DAILY Pharmacy to Dose - Vancomycin Med 12/31/19 22:00 Ordered 1 dose .XX ASDIRECTED Sodium Chloride 0.9% [Saline Flush] Med 12/31/19 21:50 Ordered 10 ml FLUSH ASDIRECTED PRN Zolpidem [Ambien] Med 12/31/19 21:50 Ordered 5 mg PO BEDTIME PRN atorvaSTATin [Lipitor] Med 01/01/20 21:00 Ordered 20 mg PO BEDTIME lisinopriL [Prinivil] Med 01/01/20 21:00 Ordered 20 mg PO BEDTIME Antiembolic Hose [OM.PC] Per Unit Routine Oth 12/31/19 21:50 Ordered Blood Culture x2 Reflex Set [OM.PC] Stat Oth 12/31/19 20:05 Ordered Peripheral IV Insertion Adult [OM.PC] Routine Oth 12/31/19 21:50 Ordered Saline Lock Insert [OM.PC] Routine Oth 12/31/19 21:50 Ordered Resuscitation Status Routine Resus Stat 12/31/19 21:50 Ordered Medication Orders Acetaminophen (Tylenol) 650 mg PO Q4H PRN PRN Reason: Pain (Mild 1-3)/fever Hydrocodone Bitart/Acetaminophen ([place] 325-10 Mg) 1 tab PO Q4H PRN PRN Reason: Pain (severe 7-10) Atorvastatin Calcium (Lipitor) 20 mg PO BEDTIME STEPHENIE Celecoxib (Celebrex) 100 mg PO BID STEPHENIE Dextrose/Water (Dextrose 50% In Water) 25 ml IVPUSH ASDIRECTED PRN PRN Reason: Hypoglycemia BS<70 Docusate Sodium (Colace) 100 mg PO BID PRN PRN Reason: Constipation Heparin Sodium (Porcine) (Heparin Sodium) 5,000 units SUBCUT Q8HR STEPHENIE Ibuprofen (Motrin) 800 mg PO TID PRN PRN Reason: moderate pain Insulin Glargine (Lantus) 20 unit SUBCUT DAILY [facility] Insulin Human Lispro (Humalog) 0 unit SUBCUT WITHMEALSANDBED STEPHENIE; Protocol Lisinopril (Prinivil) 20 mg PO BEDTIME STEPHENIE Non-Formulary Medication (Hydrochlorothiazide [Hydrochlorothiazide]) 25 mg PO DAILY [facility] Non-Formulary Medication (Insulin Aspart [Novolog]) 8 unit SQ TID STEPHENIE Non-Formulary Medication (Magnesium [Magnesium]) 30 mg PO BEDTIME STEPHENIE Non-Formulary Medication (Pantoprazole [Protonix Granules]) 40 mg PO DAILY STEPHENIE Ondansetron HCl (Zofran Odt) 4 mg PO Q6H PRN PRN Reason: nausea, able to take PO Sodium Chloride (Saline Flush) 10 ml FLUSH ASDIRECTED PRN PRN Reason: Keep Vein Open Vancomycin HCl (Pharmacy To Dose - Vancomycin) 1 dose .XX ASDIRECTED STEPHENIE Zolpidem Tartrate (Ambien) 5 mg PO BEDTIME PRN PRN Reason: Sleep Assessment/Plan Comment:: Right upper extremity cellulitis with abscess Incision and drainage was done in the ER Well be packing the wound Blood culture pending Wound culture pending Prior history of MRSA Well treat with vancomycin Diabetes Uncontrolled lately due to infection Will use Levemir and short-acting insulin Supplemental insulin and hypoglycemia treatment as needed Hypertension Treat with lisinopril, hydrochlorothiazide DVT prophylaxis with subcutaneous heparin
[2019-12-31] MEDS ORDERED: Heparin Sodium 5,000 Units/ML Vial SUBCUT SCH (22:00)
[2019-12-31 22:07] VITALS: BP 117/73; PULSE 74
[2020-01-01] MEDS ORDERED: Insulin Lispro 100 Units/ML 3 ML Vial SUBCUT SCH ×2 (06:00→08:00)
[2020-01-01] MEDS ORDERED: Pantoprazole 40 MG Tab.CR PO SCH (06:00)
[2020-01-01] MEDS ORDERED: Hydrochlorothiazide 25 MG Tab PO SCH (09:00)
[2020-01-01] MEDS ORDERED: Insulin Glarg,Human.Rec.Analog 100 Unit/ML SUBCUT SCH (09:00)
[2020-01-01] MEDS ORDERED: Celecoxib 100 MG Cap PO SCH (09:00)
--- NOTE | 2020-01-01 14:39 | PCM.DCSUM1 ---
Discharge Summary - Hospital Course Free Text/Narrative:: The patient is a 39-year-old with a history of MRSA skin infections. The patient presented with right antecubital area abscess associated cellulitis. The patient's the abscess was drained in the emergency room Antibiotic treatment and vancomycin was started. The patient also has a history of PTSD and during the night was increasingly anxious. She decided to leave AGAINST MEDICAL ADVICE due to her anxiety at night when not home with family. She will resume oral Bactrim treatment. She will come to the emergency room if further redness, pain, swelling is developing or worsening. - Discharge Data Discharge Date: 12/31/19 Discharge Disposition: Against Medical Advice 07 Condition: Fair - Referral to Home Health Primary Care Physician: PCP None - Discharge Diagnosis/Problem(s) (1) Skin abscess SNOMED Code(s): 35149600 ICD Code: L02.91 - CUTANEOUS ABSCESS, UNSPECIFIED Status: Acute (2) Abscess SNOMED Code(s): 000106646 ICD Code: L02.91 - CUTANEOUS ABSCESS, UNSPECIFIED Status: Acute (3) Anxiety SNOMED Code(s): 40265817 ICD Code: F41.9 - ANXIETY DISORDER, UNSPECIFIED Status: Acute (4) Cellulitis SNOMED Code(s): 351324261 ICD Code: L03.90 - CELLULITIS, UNSPECIFIED Status: Acute Qualifiers: Site of cellulitis: extremity Site of cellulitis of extremity: upper ext remity Laterality: right Qualified Code(s): L03.113 - Cellulitis of right upper limb (5) Diabetes mellitus SNOMED Code(s): 72874985 ICD Code: E11.9 - TYPE 2 DIABETES MELLITUS WITHOUT COMPLICATIONS Status: Chronic Qualifiers: Diabetes mellitus type: type 2 Diabetes mellitus continuous churn buttermaker insulin use: unspecified intermediate insulin use status Diabetes mellitus complication status : without complication Qualified Code(s): E11.9 - Type 2 diabetes mellitus without complications - Discharge Plan Home Medications: Home Meds Albuterol Sulfate [Albuterol Sulfate HFA] 8.5 gm IH ASDIRECTED PRN 04/11/13 [History] Gabapentin [Neurontin] 600 mg PO TID 04/11/13 [History] Lisinopril 20 mg PO BEDTIME 04/11/13 [History] Pantoprazole [ProTONIX Granules] 40 mg PO DAILY 04/11/13 [History] Hydrochlorothiazide 25 mg PO DAILY 09/23/15 [History] Insulin Glarg,Human.Rec.Analog [Lantus] 20 units SQ DAILY 04/19/16 [History] atorvaSTATin [Lipitor] 20 mg PO BEDTIME 07/20/16 [History] Ibuprofen 800 mg PO TID PRN 5 Days 09/04/16 [Rx] Insulin Aspart [NovoLOG] 8 unit SQ TID 08/05/18 [History] Magnesium 30 mg PO BEDTIME 08/05/18 [History] Celecoxib 100 mg PO BID 01/29/19 [History] SUMAtriptan succinate [Sumatriptan Succinate] 25 mg PO ASDIRECTED PRN 01/29/19 [History] Forms: ED Department Discharge Referrals: PCP,Unknown [Ordering Only Provider] - - Discharge Summary/Plan Comment DC Time >30 min.: No - Patient Data Vitals - Most Recent: Last Vital Signs Temp 98 F 12/31/19 21:50 Pulse 74 12/31/19 21:50 Resp 18 12/31/19 21:50 BP 117/73 12/31/19 21:50 Pulse Ox 97 12/31/19 21:50 Weight - Most Recent: 216 lb 12.8 oz I&O - Last 24 hours: Intake & Output 12/31/19 01/01/20 01/01/20 22:59 06:59 14:59 Intake Total 120 Balance 120 Lab Results - Last 24 hrs: Laboratory Results - last 24 hr 12/31/19 12/31/19 12/31/19 Range/Units 19:55 19:55 19:55 WBC 18.9 H (5.0-10.0) 10^3/uL RBC 4.71 (4.2-5.4) 10^6/uL Hgb 12.7 (12.0-16.0) g/dL Hct 38.0 (37.0-47.0) % MCV 80.7 (80-100) fL MCH 27.0 (27.0-34.0) pg MCHC 33.4 (33.0-35.0) g/dL Plt Count 288 (150-450) 10^3/uL Neut % (Auto) 80.0 H (42.2-75.2) % Lymph % (Auto) 9.7 L (20.5-50.1) % [place] % (Auto) 8.5 H (2-8) % Eos % (Auto) 1.6 (1.0-3.0) % Baso % (Auto) 0.2 (0.0-1.0) % Add Manual Diff Yes Neutrophils % (Manual) 71 (42-75) % Band Neutrophils % 9 % Lymphocytes % (Manual) 13 L (20-50) % Atypical Lymphs % 0 % Monocytes % (Manual) 4 (2-8) % Eosinophils % (Manual) 3 (1-3) % Sodium 134 L (136-145) mmol/L Potassium 4.4 (3.5-5.1) mmol/L Chloride 100 (98-107) mmol/L Carbon Dioxide 22 (21-32) mmol/L Anion Gap 16.4 H (7-13) mEq/L BUN 16 (7-18) mg/dL Creatinine 1.17 H (0.55-1.02) mg/dL Est Cr Clr Drug Dosing 59.24 mL/min Estimated GFR (MDRD) 51 BUN/Creatinine Ratio 13.7 (No establ ref range) Glucose 261 H (74-99) mg/dL POC Glucose (70-105) mg/dl Lactic Acid (0.4-2.0) mmol/L Calcium 8.3 L (8.5-10.1) mg/dL Total Bilirubin 0.3 (0.2-1.0) mg/dL AST 19 (15-37) U/L ALT 41 (14-59) U/L Alkaline Phosphatase 227 H (46-116) U/L C-Reactive Protein 7.3 H (0.0-0.9) mg/dL Total Protein 6.8 (6.4-8.2) g/dL Albumin 3.1 L (3.4-5.0) g/dL Globulin 3.7 Albumin/Globulin Ratio 0.84 12/31/19 12/31/19 Range/Units 20:20 21:48 WBC (5.0-10.0) 10^3/uL RBC (4.2-5.4) 10^6/uL Hgb (12.0-16.0) g/dL Hct (37.0-47.0) % MCV (80-100) fL MCH (27.0-34.0) pg MCHC (33.0-35.0) g/dL Plt Count (150-450) 10^3/uL Neut % (Auto) (42.2-75.2) % Lymph % (Auto) (20.5-50.1) % [place] % (Auto) (2-8) % Eos % (Auto) (1.0-3.0) % Baso % (Auto) (0.0-1.0) % Add Manual Diff Neutrophils % (Manual) (42-75) % Band Neutrophils % % Lymphocytes % (Manual) (20-50) % Atypical Lymphs % % Monocytes % (Manual) (2-8) % Eosinophils % (Manual) (1-3) % Sodium (136-145) mmol/L Potassium (3.5-5.1) mmol/L Chloride (98-107) mmol/L Carbon Dioxide (21-32) mmol/L Anion Gap (7-13) mEq/L BUN (7-18) mg/dL Creatinine (0.55-1.02) mg/dL Est Cr Clr Drug Dosing mL/min Estimated GFR (MDRD) BUN/Creatinine Ratio (No establ ref range) Glucose (74-99) mg/dL POC Glucose 226 H (70-105) mg/dl Lactic Acid 1.4 (0.4-2.0) mmol/L Calcium (8.5-10.1) mg/dL Total Bilirubin (0.2-1.0) mg/dL AST (15-37) U/L ALT (14-59) U/L Alkaline Phosphatase (46-116) U/L C-Reactive Protein (0.0-0.9) mg/dL Total Protein (6.4-8.2) g/dL Albumin (3.4-5.0) g/dL Globulin Albumin/Globulin Ratio COMFORT Results - Last 24 hrs: Microbiology 12/31/19 20:25 Anaerobic Blood Culture - Final Blood - Venous - Lab Draw 12/31/19 20:20 Anaerobic Blood Culture - Final Blood - Venous Med Orders - Current: Current Medications Discontinued Medications Acetaminophen (Tylenol) 650 mg PO Q4H PRN PRN Reason: Pain (Mild 1-3)/fever Hydrocodone Bitart/Acetaminophen ([place] 325-10 Mg) 1 tab PO Q4H PRN PRN Reason: Pain (severe 7-10) Atorvastatin Calcium (Lipitor) 20 mg PO BEDTIME STEPHENIE Celecoxib (Celebrex) 100 mg PO BID STEPHENIE Dextrose/Water (Dextrose 50% In Water) 25 ml IVPUSH ASDIRECTED PRN PRN Reason: Hypoglycemia BS<70 Diphenhydramine HCl (Benadryl) 25 mg IVPUSH ONETIME ONE Stop: 12/31/19 19:44 Last Admin: 12/31/19 20:04 Dose: 25 mg Documented by: Docusate Sodium (Colace) 100 mg PO BID PRN PRN Reason: Constipation Heparin Sodium (Porcine) (Heparin Sodium) 5,000 units SUBCUT Q8HR [facility] Hydrochlorothiazide (Hydrochlorothiazide) 25 mg PO DAILY STEPHENIE Hydromorphone HCl (Dilaudid) 1 mg IVPUSH ONETIME ONE Stop: 12/31/19 19:44 Last Admin: 12/31/19 20:04 Dose: 1 mg Documented by: Hydromorphone HCl (Dilaudid) 1 mg IVPUSH ONETIME ONE Stop: 12/31/19 20:53 Last Admin: 12/31/19 20:56 Dose: 1 mg Documented by: Vancomycin HCl 1.5 gm/ Premix 300 mls @ 200 mls/hr IV ONETIME ONE Stop: 12/31/19 21:11 Last Admin: 12/31/19 20:08 Dose: 200 mls/hr Documented by: Sodium Chloride (Normal Saline) 1,000 mls @ 1,000 mls/hr IV .BOLUS ONE Stop: 12/31/19 21:30 Last Admin: 12/31/19 20:55 Dose: 1,000 mls/hr Documented by: Vancomycin HCl 1 gm/ Sodium (Chloride) 250 mls @ 166.667 mls/hr IV Q12H [facility] Ibuprofen (Motrin) 800 mg PO TID PRN PRN Reason: moderate pain Insulin Glargine (Lantus) 20 unit SUBCUT DAILY [facility] Insulin Human Lispro (Humalog) 0 unit SUBCUT WITHMEALSANDBED STEPHENIE; Protocol Insulin Human Lispro (Humalog) 8 unit SUBCUT TIDAC [facility] Lidocaine HCl (Xylocaine-Mpf 1%) 30 ml INJECT ONETIME ONE Stop: 12/31/19 19:44 Last Admin: 12/31/19 20:10 Dose: 5 ml Documented by: Lisinopril (Prinivil) 20 mg PO BEDTIME STEPHENIE Non-Formulary Medication (Magnesium [Magnesium]) 30 mg PO BEDTIME STEPHENIE Ondansetron HCl (Zofran Odt) 4 mg PO Q6H PRN PRN Reason: nausea, able to take PO Pantoprazole Sodium (Protonix) 40 mg PO ACBREAKFAST STEPHENIE Sodium Chloride (Saline Flush) 10 ml FLUSH ASDIRECTED PRN PRN Reason: Keep Vein Open Vancomycin HCl (Pharmacy To Dose - Vancomycin) 1 dose .XX ASDIRECTED STEPHENIE Zolpidem Tartrate (Ambien) 5 mg PO BEDTIME PRN PRN Reason: Sleep - Exam Psy/Mental Status: Reports: Alert, Normal Affect, Normal Mood
[2020-01-01] MEDS ORDERED: Non-Formulary Medication 1 Each (Magnesium [Magnesium] 30 MG) PO SCH (21:00)
[2020-01-01] MEDS ORDERED: Lisinopril 10 MG Tab PO SCH (21:00)
[2020-01-01] MEDS ORDERED: atorvaSTATin 20 MG Tab PO SCH (21:00)
== END 2019-12-31 23:45 | disposition left against medical advice (07) | DRG 638 ==
LOC: DL.ED 17:39 → EEVIPCON 21:01 → DL.MS 21:01 → DL.ED 21:17 → DL.MS 21:44 → UNDOADMIN 21:44
PROVIDERS: ADMIT Internal Medicine; ATTEND Internal Medicine
DX: E11.628 Type 2 diabetes mellitus with other skin complications (principal); L02.413 Cutaneous abscess of right upper limb; L03.113 Cellulitis of right upper limb; H54.7 Unspecified visual loss; E87.1 Hypo-osmolality and hyponatremia; E78.00 Pure hypercholesterolemia, unspecified; I10 Essential (primary) hypertension; J45.909 Unspecified asthma, uncomplicated; K21.9 Gastro-esophageal reflux disease without esophagitis; M19.90 Unspecified osteoarthritis, unspecified site; M54.9 Dorsalgia, unspecified; G89.29 Other chronic pain; E11.40 Type 2 diabetes mellitus with diabetic neuropathy, unspecified; F32.9 Major depressive disorder, single episode, unspecified; F41.9 Anxiety disorder, unspecified; E11.42 Type 2 diabetes mellitus with diabetic polyneuropathy; B19.20 Unspecified viral hepatitis C without hepatic coma; Z90.49 Acquired absence of other specified parts of digestive tract; F90.9 Attention-deficit hyperactivity disorder, unspecified type; F41.0 Panic disorder [episodic paroxysmal anxiety]; E66.9 Obesity, unspecified; F17.200 Nicotine dependence, unspecified, uncomplicated; Z91.018 Allergy to other foods; Z88.0 Allergy status to penicillin; Z86.14 Personal history of Methicillin resistant Staphylococcus aureus infection; Z88.1 Allergy status to other antibiotic agents; Z91.040 Latex allergy status; Z91.013 Allergy to seafood; Z79.4 Long term (current) use of insulin; Z79.899 Other long term (current) drug therapy; Z87.442 Personal history of urinary calculi; Z68.37 Body mass index [BMI] 37.0-37.9, adult
CPT/HCPCS: 10061; 36415; 80053; 82962; 83605; 85025; 86140; 87040; 87070; 87077; 87186; 96365; 96375; 96376; 99285-25; J1170; J1200; J2001; J3370; J7030

== ENCOUNTER 2020-11-15 22:31 | Emergency (ER) | payer MEDICARE, MEDICAID ==
[2020-11-15 22:54] VITALS: BP 126/78; PULSE 67
--- NOTE | 2020-11-16 00:09 | CR ---
PROCEDURE INFORMATION: Exam: XR Left Foot Exam date and time: 11/15/2020 10:53 PM Age: 39 years old Clinical indication: Pain; Foot; Left TECHNIQUE: Imaging protocol: XR Left foot. Views: 1 or 2 views. COMPARISON: CR FOOT/ANKLE LT 03/05/2010 7:44 PM FINDINGS: Bones/joints: No acute fracture. Soft tissues: Unremarkable. IMPRESSION: No acute osseous process.
--- NOTE | 2020-11-16 00:16 | EDM.PDOC ---
ED HPI GENERAL MEDICAL PROBLEM - General Chief Complaint: Lower Extremity Injury/Pain Stated Complaint: INJURED LEG Time Seen by Provider: 11/15/20 22:55 Source of Information: Reports: Patient History Limitations: Reports: No Limitations - History of Present Illness INITIAL COMMENTS - FREE TEXT/NARRATIVE: ED with c/o left heel pain since 10/27. Started after twisting foot. Denies ankle pain . Pain bottom of heel worse with weight bearing, describes as feeling like bone going to polke out. Has been seen for same in past told possible torn tendon. No swelling. pain radiates up back of leg and fore foot. Using gel insert in shoes. Has not taken tylenol or ibuprofen Left Foot Pain Score (Numeric/FACES): 5 - Related Data Allergies Allergy/AdvReac Type Severity Reaction Status Date / Time amoxicillin [Amoxicillin] Allergy Difficulty Verified 12/31/19 18:40 Swallowing cephalexin [Cephalexin] Allergy Cannot Verified 12/31/19 18:40 Remember Cephalosporins Allergy Difficulty Verified 12/31/19 18:40 Swallowing cyclobenzaprine Allergy Other Verified 12/31/19 18:40 [Cyclobenzaprine] lactose Allergy Diarrhea Verified 12/31/19 18:40 latex Allergy Itching Verified 12/31/19 18:40 meloxicam [From Mobic] Allergy Swelling Verified 12/31/19 18:40 Penicillins Allergy Anaphylactic Verified 12/31/19 18:40 Shock fish Allergy Rash Uncoded 12/31/19 18:40 Home Meds: Home Meds Albuterol Sulfate [Albuterol Sulfate HFA] 8.5 gm IH ASDIRECTED PRN 04/11/13 [History] Gabapentin [Neurontin] 600 mg PO TID 04/11/13 [History] Lisinopril 20 mg PO BEDTIME 04/11/13 [History] Pantoprazole [ProTONIX Granules] 40 mg PO DAILY 04/11/13 [History] Hydrochlorothiazide 25 mg PO DAILY 09/23/15 [History] Insulin Glarg,Human.Rec.Analog [Lantus] 20 units SQ DAILY 04/19/16 [History] atorvaSTATin [Lipitor] 20 mg PO BEDTIME 07/20/16 [History] Ibuprofen 800 mg PO TID PRN 5 Days 09/04/16 [Rx] Insulin Aspart [NovoLOG] 8 unit SQ TID 08/05/18 [History] Magnesium 30 mg PO BEDTIME 08/05/18 [History] Celecoxib 100 mg PO BID 01/29/19 [History] SUMAtriptan succinate [Sumatriptan Succinate] 25 mg PO ASDIRECTED PRN 01/29/19 [History] Past Medical History HEENT History: Reports: Impaired Vision, Other (See Below) Other HEENT History: ears drain all the time, wears glasses Cardiovascular History: Reports: Heart Murmur, High Cholesterol, Hypertension Respiratory History: Reports: Asthma, Bronchitis, Recurrent Gastrointestinal History: Reports: GERD Genitourinary History: Reports: Renal Calculus MASTER DATA ANALYST History: Reports: Musculoskeletal History: Reports: Arthritis, Back Pain, Chronic, Other (See Below) Other Musculoskeletal History: bulging disx on L5 Neurological History: Reports: Concussion, Head Trauma, Migraines, Neuropathy, Diabetic, Other (See Below) Other Neuro History: body shuts down from stress Psychiatric History: Reports: ADD, ADHD, Addiction, Aggressive/Hostile Behaviors, Anxiety, Depression, Emotional Problems, Panic Attack, Psych Hospitalization(s), PTSD Endocrine/Metabolic History: Reports: Diabetes, Type II, Obesity/BMI 30+ Hematologic History: Reports: None Immunologic History: Reports: None Other Immunologic History: not sure if has been exposed to HIV Oncologic (Cancer) History: Reports: None Dermatologic History: Reports: Other (See Below) Other Dermatologic History: has bumps in the groin area and a rash on body - Infectious Disease History Infectious Disease History: Reports: Chicken Pox, Hepatitis C, MRSA Other Infectious Disease History: has active Hep C - Past Surgical History Head Surgeries/Procedures: Reports: None HEENT Surgical History: Reports: Oral Surgery, Other (See Below) Other HEENT Surgeries/Procedures: maxifacial surgery from broken jaw GI Surgical History: Reports: Cholecystectomy Other GI Surgeries/Procedures: liver surgery, bleeding ulcers Female Surgical History: Reports: D&C, Tubal Ligation Social & Family History - Family History Family Medical History: No Pertinent Family History Cardiac: Reports: High Cholesterol, Hypertension, HI Other Cardiac Family History: Grandmother on mom's side. Both sides have hypertension and high cholesterol Endocrine/Metabolic: Reports: Diabetes, type II Other Endocrine/Metabolic Family History: Both sides of family. - Tobacco Use Tobacco Use Status *Q: Current Every Day Tobacco User Years of Tobacco use: 10 Packs/Tins Daily: 0.5 - Caffeine Use Caffeine Use: Reports: Coffee - Recreational Drug Use Recreational Drug Use: No - Living Situation & Occupation Living situation: Reports: Other Review of Systems - Review of Systems Review Of Systems: Comprehensive ROS is negative, except as noted in HPI. ED EXAM, GENERAL - Physical Exam Exam: See Below Exam Limited By: No Limitations General Appearance: Alert, No Apparent Distress, Anxious Eye Exam: Bilateral Eye: EOMI Nose: Normal Inspection Throat/Mouth: Normal Voice Head: Atraumatic, Normocephalic Respiratory/Chest: No Respiratory Distress, Lungs Clear Cardiovascular: Regular Rate, Rhythm Extremities: Normal Inspection, Normal Range of Motion, Other (mild tenderness left heel with palpation, no redness). No: Joint Swelling, Claudia's Sign, Limited Range of Motion Neurological: Alert, Oriented, Normal Cognition Psychiatric: Anxious Skin Exam: Warm, Dry, Intact, Normal Color Course - Vital Signs Last Recorded V/S: Last Vital Signs Temp 96.9 F 11/15/20 22:48 Pulse 67 11/15/20 22:48 Resp 20 11/15/20 22:48 BP 126/78 11/15/20 22:48 Pulse Ox 99 11/15/20 22:48 Departure - Departure Time of Disposition: 00:14 Disposition: Home, Self-Care 01 Condition: Good Clinical Impression: Heel pain - Discharge Information *PRESCRIPTION DRUG MONITORING PROGRAM REVIEWED*: No *COPY OF PRESCRIPTION DRUG MONITORING REPORT IN PATIENT ANIVAL: No Instructions: Plantar Fasciitis With [facility]hab[facility] Forms: ED Department Discharge Additional Instructions: ice elevate when able shoes with heel padding clinic follow up, referral to podiatry alternate tylenol 500mg and ibuprofen 600mg Sepsis Event Note (ED) - Evaluation Sepsis Screening Result: No Definite Risk - Focused Exam Vital Signs: Vital Signs Temp Pulse Resp BP Pulse Ox 11/15/20 22:48 96.9 F 67 20 126/78 99
== END 2020-11-16 00:23 | disposition home or self-care (01) ==
LOC: DL.ED 22:31
DX: M79.672 Pain in left foot (principal); E78.00 Pure hypercholesterolemia, unspecified; I10 Essential (primary) hypertension; K21.9 Gastro-esophageal reflux disease without esophagitis; E11.40 Type 2 diabetes mellitus with diabetic neuropathy, unspecified; E66.9 Obesity, unspecified; Z72.0 Tobacco use; Z88.0 Allergy status to penicillin; Z88.1 Allergy status to other antibiotic agents; Z88.5 Allergy status to narcotic agent; Z91.011 Allergy to milk products; Z91.040 Latex allergy status; Z91.013 Allergy to seafood; Z68.29 Body mass index [BMI] 29.0-29.9, adult; Z79.84 Long term (current) use of oral hypoglycemic drugs; Z79.899 Other long term (current) drug therapy
CPT/HCPCS: 73620-LT; 99282; 99283-25

== ENCOUNTER 2020-11-28 20:53 | Observation (INO) | payer MEDICARE, MEDICAID ==
[2020-11-28] MEDS ORDERED: MVI, Adult with Vitamin K 10 ML, Folic Acid 1 MG, Thiamine 100 MG in Lactated Ringers 1... IV ONE ×4 (21:02)
[2020-11-28] MEDS ORDERED: LORazepam 2 MG/ML SDV IVPUSH ONE (21:02)
[2020-11-28] MEDS ORDERED: Ondansetron 4 MG/2 ML SDV IV ONE (21:03)
[2020-11-28] MEDS ORDERED: diphenhydrAMINE 50 MG/ML SDV IM ONE (21:26)
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
[2020-11-28] MEDS ORDERED: Haloperidol Lactate 5 MG/ML SDV IM ONE (21:27)
[2020-11-28] MEDS ORDERED: Iopamidol 612 MG/ML 100 ML Bottle IVPUSH ONE (22:09)
[2020-11-28 22:42] LABS: ANION GAP 16.8 mEq/L (7-13); CHLORIDE,CL 109 mmol/L (98-107); SODIUM,NA 148 mmol/L (136-145)
[2020-11-28] MEDS ORDERED: Potassium Chloride 20 MEQ in Premix Bag 1 BAG IV ONE (22:48)
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
[2020-11-28] MEDS ORDERED: LORazepam 2 MG/ML SDV IM ONE (23:28)
[2020-11-29] MEDS ORDERED: Acetaminophen 650 MG Supp RECTAL PRN (00:26)
[2020-11-29] MEDS ORDERED: Ondansetron 4 MG/2 ML SDV IVPUSH PRN (00:26)
[2020-11-29] MEDS ORDERED: Sodium Chloride 0.9% 10 ML Syringe FLUSH PRN (00:26)
[2020-11-29] MEDS ORDERED: Acetaminophen 325 MG Tab PO PRN (00:26)
[2020-11-29] MEDS ORDERED: Haloperidol Lactate 5 MG/ML SDV IM PRN (00:31)
[2020-11-29] MEDS ORDERED: 50% Dextrose in Water 50 ML Syringe IVPUSH PRN (00:31)
[2020-11-29] MEDS ORDERED: Glucagon,Human Recombinant 1 MG Vial IM PRN (00:31)
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
[2020-11-29] MEDS: Sodium Chloride 0.45% 1,000 ML IV SCH ×2 (01:25→17:45)
[2020-11-29] MEDS: Potassium Chloride 20 MEQ in Premix Bag 1 BAG IV SCH ×3 (01:25→05:23)
[2020-11-29] MEDS: LORazepam 2 MG/ML SDV IV PRN ×8 (04:49→22:51)
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
[2020-11-29 08:53] LABS: ANION GAP 17.3 mEq/L (7-13); CHLORIDE,CL 110 mmol/L (98-107); SODIUM,NA 145 mmol/L (136-145)
[2020-11-29] MEDS: Insulin Lispro 100 Units/ML 3 ML Vial SUBCUT SCH ×4 (09:10→22:52)
[2020-11-29] MEDS ORDERED: Magnesium Sulfate/Water 4 GM in Premix Bag 1 BAG IV ONE (11:00)
[2020-11-29 11:17] LABS: AMPHETAMINES,URINE NEGATIVE (NEGATIVE); BARBITURATES,URINE NEGATIVE (NEGATIVE); BENZODIAZEPINE,URINE POSITIVE (NEGATIVE); MDMA (ECSTASY), URINE NEGATIVE (NEGATIVE); METHADONE,URINE NEGATIVE (NEGATIVE); METHAMPHETAMINES,URINE NEGATIVE (NEGATIVE); OPIATES,URINE NEGATIVE (NEGATIVE); OXYCODONE,URINE NEGATIVE (NEGATIVE); PHENCYCLIDINE,URINE NEGATIVE (NEGATIVE); TCA,URINE NEGATIVE (NEGATIVE)
[2020-11-29] MEDS: Haloperidol Lactate 5 MG/ML SDV IVPUSH PRN ×3 (16:30→20:31)
[2020-11-30] MEDS: Haloperidol Lactate 5 MG/ML SDV IVPUSH PRN ×4 (01:24→09:37)
[2020-11-30] MEDS: LORazepam 2 MG/ML SDV IV PRN ×5 (03:57→13:11)
[2020-11-30 05:22] VITALS: BP 140/76; PULSE 66
[2020-11-30] MEDS: Sodium Chloride 0.45% 1,000 ML IV SCH (06:06)
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
[2020-11-30] MEDS: Insulin Lispro 100 Units/ML 3 ML Vial SUBCUT SCH ×2 (09:02→13:13)
[2020-11-30] MEDS ORDERED: Haloperidol Lactate 5 MG/ML SDV IVPUSH ONE ×2 (11:15→14:00)
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
[2020-11-30] MEDS ORDERED: Magnesium Sulfate/Water 2 GM in Premix Bag 1 BAG IV ONE (13:00)
[2020-11-30] MEDS ORDERED: LORazepam 2 MG/ML SDV IVPUSH ONE (14:00)
[2020-11-30] MEDS ORDERED: diphenhydrAMINE 50 MG/ML SDV IVPUSH ONE (14:00)
== END 2020-11-30 14:56 ==
LOC: DL.ED 20:53 → EEVIPCON 23:18 → DL.MS 23:18
PROVIDERS: ADMIT Internal Medicine; ATTEND Internal Medicine
DX: F10.129 Alcohol abuse with intoxication, unspecified (principal); E87.6 Hypokalemia; E87.1 Hypo-osmolality and hyponatremia; F41.9 Anxiety disorder, unspecified; Z20.822 Contact with and (suspected) exposure to COVID-19; Z91.14 Patient's other noncompliance with medication regimen; Z86.69 Personal history of other diseases of the nervous system and sense organs; F32.9 Major depressive disorder, single episode, unspecified; G89.29 Other chronic pain; J44.9 Chronic obstructive pulmonary disease, unspecified; E11.40 Type 2 diabetes mellitus with diabetic neuropathy, unspecified; K21.9 Gastro-esophageal reflux disease without esophagitis; E78.5 Hyperlipidemia, unspecified; F17.200 Nicotine dependence, unspecified, uncomplicated; M19.90 Unspecified osteoarthritis, unspecified site; F19.10 Other psychoactive substance abuse, uncomplicated; E83.42 Hypomagnesemia; R31.29 Other microscopic hematuria; F90.9 Attention-deficit hyperactivity disorder, unspecified type; F43.10 Post-traumatic stress disorder, unspecified; E78.00 Pure hypercholesterolemia, unspecified; I10 Essential (primary) hypertension; Z88.1 Allergy status to other antibiotic agents; Z88.0 Allergy status to penicillin; Z91.040 Latex allergy status; Z91.013 Allergy to seafood; Z79.4 Long term (current) use of insulin; Y09 Assault by unspecified means; Y90.8 Blood alcohol level of 240 mg/100 ml or more
CPT/HCPCS: 36415; 70450; 70486; 71260; 72125; 72128; 72131; 74018; 74177; 80053; 80074; 80305-QW; 80307; 81001; 82947; 83735; 84703; 85025; 85610; 87389; 96365; 96372; 96375; 99284; 99285-25; J1200; J1630; J1815-GY; J2060; J2405; J3411; J3475; J3480; J3490; J7120; Q9967; U0002

== ENCOUNTER 2021-06-20 17:31 | Emergency (ER) | payer MEDICARE, MEDICAID ==
[2021-06-20] MEDS ORDERED: Sulfamethoxazole/Trimethoprim 800-160 MG Tab ONE (18:38)
[2021-06-20] MEDS ORDERED: Ibuprofen 400 MG Tab ONE (18:38)
[2021-06-20] MEDS ORDERED: Clindamycin HCl 150 MG Cap ONE (18:38)
[2021-06-20 18:46] VITALS: BP 116/71; PULSE 114
== END 2021-06-20 18:58 | disposition home or self-care (01) ==
LOC: DL.ED 17:31
DX: L03.113 Cellulitis of right upper limb (principal); L02.414 Cutaneous abscess of left upper limb; E11.9 Type 2 diabetes mellitus without complications; E66.9 Obesity, unspecified; Z68.34 Body mass index [BMI] 34.0-34.9, adult; Z88.0 Allergy status to penicillin; Z88.1 Allergy status to other antibiotic agents; Z88.8 Allergy status to other drugs, medicaments and biological substances; Z91.040 Latex allergy status; Z91.013 Allergy to seafood; Z79.82 Long term (current) use of aspirin; Z79.4 Long term (current) use of insulin; Z79.899 Other long term (current) drug therapy
CPT/HCPCS: 99283; A9270; 99282

== ENCOUNTER 2023-01-04 11:32 | Emergency (ER) | payer MEDICARE, MEDICAID ==
[2023-01-04 11:48] VITALS: BP 144/90; PULSE 96
[2023-01-04 11:56] LABS: APPEARANCE,URINE SLIGHTLY CLOUDY (CLEAR); BILIRUBIN,URINE NEGATIVE (NEGATIVE); COLOR,URINE YELLOW (YELLOW); GLUCOSE,URINE 250 (NEGATIVE); KETONES,URINE NEGATIVE (NEGATIVE); LEUKOCYTE ESTERASE,URINE TRACE (NEGATIVE); NITRITE,URINE NEGATIVE (NEGATIVE); OCCULT BLOOD,URINE NEGATIVE (NEGATIVE); PROTEIN,URINE NEGATIVE (NEGATIVE)
[2023-01-04 12:00] LABS: BASOPHILS PERCENT AUTO 0.2 % (0.0-1.0); HEMATOCRIT 42.1 % (37.0-47.0); LYMPHOCYTES PERCENT AUTO 14.2 % (20.5-50.1); MEAN CORPUSCULAR HEMOGLOBIN 26.3 pg (27.0-34.0); MEAN CORPUSCULAR HGB CONC 33.3 g/dL (33.0-35.0); MONOCYTES PERCENT AUTO 6.5 % (2-8); NEUTROPHILS PERCENT AUTO 78.1 % (42.2-75.2); PLATELET COUNT,PLT 325 10^3/uL (150-450); RED BLOOD CELL COUNT 5.33 10^6/uL (4.2-5.4); WHITE BLOOD CELL COUNT,WBC 12.1 10^3/uL (5.0-10.0)
[2023-01-04 12:01] LABS: AMPHETAMINES,URINE NEGATIVE (NEGATIVE); BARBITURATES,URINE NEGATIVE (NEGATIVE); BENZODIAZEPINE,URINE NEGATIVE (NEGATIVE); MDMA (ECSTASY), URINE NEGATIVE (NEGATIVE); METHADONE,URINE NEGATIVE (NEGATIVE); METHAMPHETAMINES,URINE NEGATIVE (NEGATIVE); OPIATES,URINE NEGATIVE (NEGATIVE); OXYCODONE,URINE NEGATIVE (NEGATIVE); PHENCYCLIDINE,URINE NEGATIVE (NEGATIVE); TCA,URINE NEGATIVE (NEGATIVE)
[2023-01-04 12:04] LABS: EPITHELIAL CELLS,URINE MODERATE /HPF (NOT SEEN); RBC,URINE 0-5 /HPF (0-5)
[2023-01-04 12:05] LABS: AMORPHOUS SEDIMENT,URINE FEW /HPF (NOT SEEN); BACTERIA,URINE MODERATE /HPF (0-FEW/HPF); MUCUS,URINE MANY /LPF (NOT SEEN)
[2023-01-04 12:27] LABS: A/G RATIO 0.9; ALANINE AMINOTRANSFERASE,ALT 42 U/L (14-59); ALBUMIN 3.7 g/dL (3.4-5.0); ALKALINE PHOSPHATASE 154 U/L (46-116); ANION GAP 19.7 mEq/L (7-13); ASPARTATE AMNIOTRANSFERASE,AST 37 U/L (15-37); BILIRUBIN TOTAL 0.9 mg/dL (0.2-1.0); BLOOD UREA NITROGEN,BUN 12 mg/dL (7-18); BUN/CREATININE RATIO 13.5 (No establ ref range); CALCIUM 9.5 mg/dL (8.5-10.1); CARBON DIOXIDE,CO2 26 mmol/L (21-32); CHLORIDE,CL 99 mmol/L (98-107); CREATININE 0.89 mg/dL (0.55-1.02); EST CRCL DRUG DOSING (CG) 75.51 mL/min; GLUCOSE RANDOM 243 mg/dL (70-99); MAGNESIUM 1.6 mg/dL (1.8-2.4); POTASSIUM,K 3.7 mmol/L (3.5-5.1); PROTEIN TOTAL,TP 7.8 g/dL (6.4-8.2); SODIUM,NA 141 mmol/L (136-145); TSH ULTRASENSITIVE 0.87 uIU/mL (0.36-3.74)
[2023-01-04 12:33] LABS: ACETAMINOPHEN 0 ug/mL (10-30 (Therapeutic)); ESTIMATED GFR 82 mL/min (>=60); ETHANOL BLOOD MEDICAL < 3 mg/dL (0)
[2023-01-04] MEDS ORDERED: Ciprofloxacin 500 MG Tab PO ONE (12:35)
== END 2023-01-04 13:00 | disposition home or self-care (01) ==
LOC: DL.ED 11:32
DX: N30.00 Acute cystitis without hematuria (principal); R44.3 Hallucinations, unspecified; I10 Essential (primary) hypertension; E78.00 Pure hypercholesterolemia, unspecified; J45.909 Unspecified asthma, uncomplicated; M19.90 Unspecified osteoarthritis, unspecified site; E11.9 Type 2 diabetes mellitus without complications; E66.9 Obesity, unspecified; Z68.34 Body mass index [BMI] 34.0-34.9, adult; Z88.0 Allergy status to penicillin; Z88.8 Allergy status to other drugs, medicaments and biological substances; Z88.1 Allergy status to other antibiotic agents; Z91.011 Allergy to milk products; Z91.040 Latex allergy status; Z91.013 Allergy to seafood; Z79.4 Long term (current) use of insulin; Z79.899 Other long term (current) drug therapy
CPT/HCPCS: 36415; 80053; 80143; 80179; 80305; 80307; 81001; 81025; 83735; 84443; 85025; 87086; 93005; 93010; 99284; 99285; A9270

== ENCOUNTER 2024-04-21 20:04 | Emergency (ER) | payer MEDICARE, MEDICAID ==
[2024-04-21 21:19] VITALS: BP 133/60; PULSE 73
[2024-04-21] MEDS: Ketorolac 30 MG/ML SDV IM ONE (21:28)
== END 2024-04-21 21:51 | disposition home or self-care (01) ==
LOC: DL.ED 20:04
DX: K08.89 Other specified disorders of teeth and supporting structures (principal); I10 Essential (primary) hypertension; E78.00 Pure hypercholesterolemia, unspecified; J45.909 Unspecified asthma, uncomplicated; K21.9 Gastro-esophageal reflux disease without esophagitis; M19.90 Unspecified osteoarthritis, unspecified site; E11.9 Type 2 diabetes mellitus without complications; E66.9 Obesity, unspecified; F17.210 Nicotine dependence, cigarettes, uncomplicated; Z86.16 Personal history of COVID-19; Z90.49 Acquired absence of other specified parts of digestive tract; Z88.0 Allergy status to penicillin; Z88.1 Allergy status to other antibiotic agents; Z88.8 Allergy status to other drugs, medicaments and biological substances; Z91.013 Allergy to seafood; Z91.040 Latex allergy status; Z79.4 Long term (current) use of insulin; Z79.51 Long term (current) use of inhaled steroids; Z79.82 Long term (current) use of aspirin; Z79.899 Other long term (current) drug therapy; Z68.28 Body mass index [BMI] 28.0-28.9, adult
CPT/HCPCS: 96372; 99282; J1885